=== PATIENT | female | born 1950 | race African-American/Black ===

== ENCOUNTER 2018-01-10 12:03 | Observation (INO) ==
[2018-01-10] MEDS ORDERED: GLUCAGON 1 MG VIAL IM PRN ×2 (12:31→17:42)
[2018-01-10] MEDS ORDERED: ACETAMINOPHEN 325 MG TABLET PO PRN ×2 (12:31→15:55)
[2018-01-10] MEDS ORDERED: DEXTROSE 50% 25 GM/50 ML VIAL IV PRN ×2 (12:31→17:42)
[2018-01-10] MEDS ORDERED: ONDANSETRON 4 MG/2 ML VIAL IV PRN (12:31)
[2018-01-10 14:43] LABS: Basophils % 0.3 % (0.0-0.8); Eosinophils # 0.2 10*3/uL (0.0-0.87); Eosinophils % 1.6 % (0.00-10.9); Hematocrit 43.4 VOL% (35.7-47.0); Hemoglobin 13.5 GM/DL (12.0-16.0); Immature Granulocytes % 0.5 %; Immature Granulocytes Absolute 0.06 #; Lymphocytes % 23.2 % (21.3-54.2); Mean Corpuscular HGB Conc 31.1 GM/DL (32-36); Mean Corpuscular Hemoglobin 25 PG (27-34); Mean Corpuscular Volume 79.1 FL (87-102); Mean Platelet Volume 10.5 FL (9.6-12.0); Monocytes % 7.4 % (1.7-12.7); Neutrophils # 8.6 10*3/uL (1.4-7.4); Platelet Count 235 T/CUMM (130-400); Red Blood Count 5.49 MC/CUMM (3.8-5.5); White Blood Count 12.8 T/CUMM (4-12)
[2018-01-10 14:50] LABS: PT Patient Result 10.4 SECS
[2018-01-10 15:01] LABS: Alanine Aminotransferase 21 U/L (13-56); Albumin 3.5 G/DL (3.4-5.0); Alkaline Phosphatase 99 U/L (45-117); Aspartate Amino Transferase 18 U/L (0-37); Bilirubin,Total < 0.39 MG/DL (0.2-1.0); Blood Urea Nitrogen 10 MG/DL (7-18); Calcium 8.9 MG/DL (8.5-10.1); Glucose 84 MG/DL (74-106); Osmolality,Calculated 278.3 MOS/KG (273-304); Potassium 4.2 MMOL/L (3.5-5.1); Sodium 141 MMOL/L (136-145); Total Protein 6.9 G/DL (6.4-8.3)
[2018-01-10 15:04] LABS: Troponin I Only < 0.015 NG/ML (0.00-0.045)
[2018-01-10 15:10] LABS: T4 (Thyroxine) 14.4 UG/DL (4.7-13.3); Thyroid Stimulating Hormone 0.446 uIU/ml (0.358-3.74)
[2018-01-10] MEDS ORDERED: BACLOFEN 10 MG TABLET PO PRN (15:55)
[2018-01-10] MEDS: INSULIN LISPRO 100 UNIT/ML SUBCUT SCH ×2 (16:33→21:21)
[2018-01-10] MEDS: ENOXAPARIN 40 MG/0.4 ML SYRINGE SUBCUT SCH (16:43)
[2018-01-10] MEDS ORDERED: metFORMIN 500 MG TABLET PO SCH (17:00)
[2018-01-10] MEDS: diphenhydrAMINE CAP 25 MG CAPSULE PO SCH ×2 (18:04→23:06)
[2018-01-10] MEDS: FAMOTIDINE 20 MG TABLET PO SCH ×2 (18:04→23:06)
[2018-01-10] MEDS: methylPREDNISolone SOD SUC 125 MG/2 ML VIAL IV SCH ×2 (18:09→23:06)
[2018-01-10] MEDS: ASPIRIN CHEW 81 MG TABLET PO SCH (21:20)
[2018-01-10] MEDS: GABAPENTIN 300 MG CAPSULE PO SCH (21:20)
[2018-01-10] MEDS: METOPROLOL TARTRATE 25 MG TABLET PO SCH (21:20)
[2018-01-10] MEDS: DOCUSATE SODIUM 100 MG CAPSULE PO SCH (21:20)
[2018-01-11] MEDS: FAMOTIDINE 20 MG TABLET PO SCH ×3 (05:44→17:42)
[2018-01-11] MEDS: LEVOTHYROXINE 88 MCG TABLET PO SCH (05:44)
[2018-01-11] MEDS: diphenhydrAMINE CAP 25 MG CAPSULE PO SCH ×3 (05:44→17:42)
[2018-01-11] MEDS: methylPREDNISolone SOD SUC 125 MG/2 ML VIAL IV SCH ×3 (05:44→17:42)
[2018-01-11 06:24] LABS: Risk Ratio 4.4; VLDL CHOLESTEROL 17.4 MG/DL
[2018-01-11] MEDS: FUROSEMIDE 20 MG TABLET PO SCH (08:12)
[2018-01-11] MEDS: CYANOCOBALAMIN 500 MCG TABLET PO SCH (08:13)
[2018-01-11] MEDS: PANTOPRAZOLE 40 MG TABLET PO SCH (08:13)
[2018-01-11] MEDS: DOCUSATE SODIUM 100 MG CAPSULE PO SCH ×2 (08:13→21:28)
[2018-01-11] MEDS: GABAPENTIN 300 MG CAPSULE PO SCH ×2 (08:13→21:28)
[2018-01-11] MEDS: METOPROLOL TARTRATE 25 MG TABLET PO SCH ×2 (08:13→21:28)
[2018-01-11] MEDS: INSULIN LISPRO 100 UNIT/ML SUBCUT SCH ×4 (08:49→21:28)
[2018-01-11] MEDS ORDERED: MAGNESIUM SULF RIDER 2 GM in PREMIX 1 EACH IV PRN (13:07)
[2018-01-11] MEDS ORDERED: POTASSIUM CHLORIDE RIDER 10 MEQ in PREMIX 1 EACH IV PRN (13:07)
[2018-01-11] MEDS ORDERED: SODIUM CHLORIDE 0.9% 1,000 ML IV SCH (13:30)
[2018-01-11] MEDS: ENOXAPARIN 40 MG/0.4 ML SYRINGE SUBCUT SCH ×2 (13:38→14:31)
[2018-01-11] MEDS ORDERED: HEPARIN/NACL 0.9% 2 UNITS/ML 1,000 ML IV ONE (13:52)
[2018-01-11] MEDS ORDERED: NITROGLYCERIN DRIP 50 MG/250 ML BOTTLE IV ONE (14:06)
[2018-01-11] MEDS ORDERED: VERAPAMIL 5 MG/2 ML VIAL ONE (14:07)
[2018-01-11] MEDS ORDERED: MIDAZOLAM 2 MG/2 ML VIAL ONE ×2 (14:07→14:41)
[2018-01-11] MEDS ORDERED: fentaNYL 100 MCG/2 ML VIAL ONE (14:07)
[2018-01-11] MEDS ORDERED: ENOXAPARIN 30 MG/0.3 ML SYRINGE ONE (14:29)
[2018-01-11] MEDS: ASPIRIN CHEW 81 MG TABLET PO SCH (21:28)
[2018-01-12] MEDS: FAMOTIDINE 20 MG TABLET PO SCH ×3 (00:22→12:32)
[2018-01-12] MEDS: diphenhydrAMINE CAP 25 MG CAPSULE PO SCH ×3 (00:22→12:32)
[2018-01-12] MEDS: methylPREDNISolone SOD SUC 125 MG/2 ML VIAL IV SCH ×3 (00:22→12:33)
[2018-01-12 04:56] LABS: Apearance,Urine CLOUDY (Clear); Bacteria,Urine Occasional /HPF (Few); Bilirubin,Urine Negative (Negative); Blood, Urine Negative (Negative); Glucose,Urine (UA) 50 mg/dL (Negative); Ketones,Urine Negative (Negative); Mucus,Urine Occasional /LPF (Occasional); Nitrite,Urine Negative (Negative); Protein,Urine Negative; RBC,Urine 2 /HPF (0-4); Squamous Epithelial Cell,Urine Few /HPF (0-10); Urine Color Yellow (Yellow); Urine Specific Gravity 1.044 (1.001-1.035); WBC,Urine 1 /HPF (0-6)
[2018-01-12 05:30] LABS: Basophils % 0.2 % (0.0-0.8); Hematocrit 40.2 VOL% (35.7-47.0); Hemoglobin 13.1 GM/DL (12.0-16.0); Immature Granulocytes % 0.7 %; Immature Granulocytes Absolute 0.13 #; Lymphocytes # 1.4 10*3/uL (1.4-4.0); Lymphocytes % 7.7 % (21.3-54.2); Mean Corpuscular HGB Conc 32.6 GM/DL (32-36); Mean Corpuscular Hemoglobin 25 PG (27-34); Mean Corpuscular Volume 76.1 FL (87-102); Mean Platelet Volume 10.5 FL (9.6-12.0); Monocytes # 0.6 10*3/uL (0.11-0.8); Monocytes % 3.3 % (1.7-12.7); Neutrophils # 16.1 10*3/uL (1.4-7.4); Neutrophils % 88.1 % (38.7-73.9); Platelet Count 247 T/CUMM (130-400); Red Blood Count 5.28 MC/CUMM (3.8-5.5); White Blood Count 18.3 T/CUMM (4-12)
[2018-01-12] MEDS: LEVOTHYROXINE 88 MCG TABLET PO SCH (05:48)
[2018-01-12 06:10] LABS: Calcium 8.3 MG/DL (8.5-10.1); Osmolality,Calculated 289.3 MOS/KG (273-304); Potassium 4.4 MMOL/L (3.5-5.1)
[2018-01-12] MEDS: FUROSEMIDE 20 MG TABLET PO SCH (08:27)
[2018-01-12] MEDS: GABAPENTIN 300 MG CAPSULE PO SCH (08:28)
[2018-01-12] MEDS: PANTOPRAZOLE 40 MG TABLET PO SCH (08:28)
[2018-01-12] MEDS: METOPROLOL TARTRATE 25 MG TABLET PO SCH (08:28)
[2018-01-12] MEDS: DOCUSATE SODIUM 100 MG CAPSULE PO SCH (08:28)
[2018-01-12] MEDS: INSULIN LISPRO 100 UNIT/ML SUBCUT SCH ×2 (08:29→12:32)
[2018-01-12] MEDS: CYANOCOBALAMIN 500 MCG TABLET PO SCH (08:29)
[2018-01-12 12:29] VITALS: BP 144/71
[2018-01-13] MEDS ORDERED: fentaNYL 12 MCG/HR PATCH TRANSDERM SCH (09:00)
== END 2018-01-12 13:58 | disposition home or self-care (01) ==
LOC: N.TELES
PROVIDERS: ADMIT Family Medicine; ATTEND Family Medicine
PROC: CLCCHCL (ICD-10-PCS; 2018-01-11 15:15)

== ENCOUNTER 2018-01-15 09:45 | Inpatient (IN) ==
[2018-01-15 10:27] LABS: Basophils # 0.1 10*3/uL (0.0-0.2); Basophils % 0.2 % (0.0-0.8); Eosinophils # 0.4 10*3/uL (0.0-0.87); Eosinophils % 1.4 % (0.00-10.9); Hematocrit 42.2 VOL% (35.7-47.0); Hemoglobin 13.6 GM/DL (12.0-16.0); Immature Granulocytes % 0.8 %; Immature Granulocytes Absolute 0.22 #; Lymphocytes # 2.8 10*3/uL (1.4-4.0); Lymphocytes % 10.1 % (21.3-54.2); Mean Corpuscular HGB Conc 32.2 GM/DL (32-36); Mean Corpuscular Hemoglobin 25 PG (27-34); Mean Corpuscular Volume 77.3 FL (87-102); Mean Platelet Volume 10.6 FL (9.6-12.0); Monocytes # 1.4 10*3/uL (0.11-0.8); Monocytes % 4.9 % (1.7-12.7); Neutrophils # 23.2 10*3/uL (1.4-7.4); Neutrophils % 82.6 % (38.7-73.9); Platelet Count 227 T/CUMM (130-400); Red Blood Count 5.46 MC/CUMM (3.8-5.5); Red Cell Distribution Width 15.3 % (9.3-17.3); White Blood Count 28.1 T/CUMM (4-12)
[2018-01-15] MEDS ORDERED: methylPREDNISolone SOD SUC 125 MG/2 ML VIAL IV STA (10:36)
[2018-01-15] MEDS ORDERED: methylPREDNISolone SOD SUC 125 MG/2 ML VIAL ONE (10:37)
[2018-01-15 10:54] LABS: Calcium 8.2 MG/DL (8.5-10.1); Osmolality,Calculated 282.5 MOS/KG (273-304); Potassium 4.2 MMOL/L (3.5-5.1)
[2018-01-15 11:23] LABS: Eosinophils 4 % (0-10); Hypochromasia 1+; Lymphocytes 8 % (20-55); Platelet Estimate Adequate; Segmented Neutrophils 85 % (50-85); Total Cells Counted 100
[2018-01-15 11:26] LABS: Sedimentation Rate-Westergren 7 MM/HR (0-30)
[2018-01-15] MEDS ORDERED: ONDANSETRON 4 MG/2 ML VIAL IV PRN (11:45)
[2018-01-15] MEDS ORDERED: ACETAMINOPHEN 325 MG TABLET PO PRN (11:45)
[2018-01-15] MEDS ORDERED: FUROSEMIDE 20 MG TABLET PO PRN (11:47)
[2018-01-15] MEDS ORDERED: NON-FORMULARY MEDICATION (Acetaminophen [Acetaminophen Er Tab] 650 MG) PO PRN (11:47)
[2018-01-15] MEDS ORDERED: BACLOFEN 10 MG TABLET PO PRN (11:47)
[2018-01-15] MEDS ORDERED: CEFTAROLINE 600 MG VIAL IV ONE (13:35)
[2018-01-15] MEDS: CEFTAROLINE 600 MG in SODIUM CHLORIDE 0.9% 100 ML IV SCH (14:05)
[2018-01-15] MEDS: SODIUM CHLORIDE 0.45% 1,000 ML IV SCH (14:16)
[2018-01-15] MEDS: metFORMIN 500 MG TABLET PO SCH (17:47)
[2018-01-15] MEDS: DOCUSATE SODIUM 100 MG CAPSULE PO SCH (20:39)
[2018-01-15] MEDS: ASPIRIN CHEW 81 MG TABLET PO SCH (20:39)
[2018-01-15] MEDS: ENOXAPARIN 40 MG/0.4 ML SYRINGE SUBCUT SCH (20:40)
[2018-01-15] MEDS: GABAPENTIN 300 MG CAPSULE PO SCH (20:40)
[2018-01-15] MEDS: diphenhydrAMINE CAP 25 MG CAPSULE PO PRN (23:32)
[2018-01-16] MEDS: CEFTAROLINE 600 MG in SODIUM CHLORIDE 0.9% 100 ML IV SCH ×2 (02:09→14:16)
[2018-01-16] MEDS: SODIUM CHLORIDE 0.45% 1,000 ML IV SCH ×2 (05:22→21:12)
[2018-01-16] MEDS: LEVOTHYROXINE 88 MCG TABLET PO SCH (05:53)
[2018-01-16 09:00] LABS: Basophils # 0.1 10*3/uL (0.0-0.2); Basophils % 0.2 % (0.0-0.8); Eosinophils % 0.1 % (0.00-10.9); Hematocrit 38.3 VOL% (35.7-47.0); Hemoglobin 12.7 GM/DL (12.0-16.0); Immature Granulocytes % 1.1 %; Immature Granulocytes Absolute 0.33 #; Lymphocytes # 2.7 10*3/uL (1.4-4.0); Lymphocytes % 9.2 % (21.3-54.2); Mean Corpuscular HGB Conc 33.2 GM/DL (32-36); Mean Corpuscular Hemoglobin 25 PG (27-34); Mean Corpuscular Volume 76.4 FL (87-102); Mean Platelet Volume 10.9 FL (9.6-12.0); Monocytes # 1.4 10*3/uL (0.11-0.8); Monocytes % 4.8 % (1.7-12.7); Neutrophils # 24.6 10*3/uL (1.4-7.4); Neutrophils % 84.6 % (38.7-73.9); Platelet Count 212 T/CUMM (130-400); Red Blood Count 5.01 MC/CUMM (3.8-5.5); Red Cell Distribution Width 15.3 % (9.3-17.3); White Blood Count 29.1 T/CUMM (4-12)
[2018-01-16] MEDS: diphenhydrAMINE CAP 25 MG CAPSULE PO PRN ×3 (09:09→21:11)
[2018-01-16] MEDS: DOCUSATE SODIUM 100 MG CAPSULE PO SCH ×2 (09:09→21:12)
[2018-01-16] MEDS: methylPREDNISolone SOD SUC 40 MG/1 ML VIAL IV SCH ×2 (09:09→17:52)
[2018-01-16] MEDS: CYANOCOBALAMIN 500 MCG TABLET PO SCH (09:09)
[2018-01-16] MEDS: PANTOPRAZOLE 40 MG TABLET PO SCH (09:09)
[2018-01-16] MEDS: metFORMIN 500 MG TABLET PO SCH ×2 (09:09→17:52)
[2018-01-16] MEDS: GABAPENTIN 300 MG CAPSULE PO SCH ×2 (09:09→21:11)
[2018-01-16] MEDS: INSULIN LISPRO 100 UNIT/ML SUBCUT SCH ×4 (09:11→21:11)
[2018-01-16 09:28] LABS: Calcium 8.1 MG/DL (8.5-10.1); Potassium 4.2 MMOL/L (3.5-5.1)
[2018-01-16 10:07] LABS: Band Neutrophils 4 % (0-10); Hypochromasia 1+; Lymphocytes 6 % (20-55); Myelocytes 1 %; Segmented Neutrophils 85 % (50-85); Total Cells Counted 100
[2018-01-16 10:08] LABS: Microcytosis 1+; Platelet Estimate Normal
[2018-01-16] MEDS: ENOXAPARIN 40 MG/0.4 ML SYRINGE SUBCUT SCH (21:11)
[2018-01-16] MEDS: ASPIRIN CHEW 81 MG TABLET PO SCH (21:12)
[2018-01-17] MEDS: diphenhydrAMINE CAP 25 MG CAPSULE PO PRN ×4 (01:30→21:03)
[2018-01-17] MEDS: CEFTAROLINE 600 MG in SODIUM CHLORIDE 0.9% 100 ML IV SCH ×2 (01:30→15:08)
[2018-01-17] MEDS: LEVOTHYROXINE 88 MCG TABLET PO SCH (06:37)
[2018-01-17] MEDS: INSULIN LISPRO 100 UNIT/ML SUBCUT SCH ×4 (07:58→21:03)
[2018-01-17] MEDS: SODIUM CHLORIDE 0.45% 1,000 ML IV SCH (09:59)
[2018-01-17] MEDS: DOCUSATE SODIUM 100 MG CAPSULE PO SCH ×2 (10:00→21:04)
[2018-01-17] MEDS: CYANOCOBALAMIN 500 MCG TABLET PO SCH (10:02)
[2018-01-17] MEDS: PANTOPRAZOLE 40 MG TABLET PO SCH (10:02)
[2018-01-17] MEDS: GABAPENTIN 300 MG CAPSULE PO SCH ×2 (10:02→21:03)
[2018-01-17] MEDS: metFORMIN 500 MG TABLET PO SCH ×2 (10:02→17:16)
[2018-01-17 10:12] LABS: Basophils # 0.1 10*3/uL (0.0-0.2); Basophils % 0.2 % (0.0-0.8); Eosinophils % 0.1 % (0.00-10.9); Hematocrit 39.8 VOL% (35.7-47.0); Hemoglobin 12.5 GM/DL (12.0-16.0); Immature Granulocytes Absolute 0.53 #; Lymphocytes % 15.3 % (21.3-54.2); Mean Corpuscular HGB Conc 31.4 GM/DL (32-36); Mean Corpuscular Hemoglobin 25 PG (27-34); Mean Corpuscular Volume 79.3 FL (87-102); Mean Platelet Volume 11.9 FL (9.6-12.0); Monocytes # 1.4 10*3/uL (0.11-0.8); Monocytes % 5.2 % (1.7-12.7); Neutrophils # 19.9 10*3/uL (1.4-7.4); Neutrophils % 77.2 % (38.7-73.9); Platelet Count 199 T/CUMM (130-400); Red Blood Count 5.02 MC/CUMM (3.8-5.5); Red Cell Distribution Width 15.5 % (9.3-17.3); White Blood Count 25.9 T/CUMM (4-12)
[2018-01-17 10:39] LABS: Calcium 8.5 MG/DL (8.5-10.1); Osmolality,Calculated 282.4 MOS/KG (273-304); Potassium 4.3 MMOL/L (3.5-5.1)
[2018-01-17 11:07] LABS: Band Neutrophils 1 % (0-10); Lymphocytes 18 % (20-55); Segmented Neutrophils 81 % (50-85); Total Cells Counted 100
[2018-01-17 11:08] LABS: Atypical Lymphocytes Few
[2018-01-17 11:09] LABS: Microcytosis 1+; Polychromasia Slight
[2018-01-17 11:10] LABS: Platelet Satellitism Few
[2018-01-17] MEDS: methylPREDNISolone SOD SUC 40 MG/1 ML VIAL IV SCH (15:07)
[2018-01-17] MEDS: TRIAMCINOLONE 0.1% CREAM 15 GM TUBE TOP SCH ×2 (15:08→21:04)
[2018-01-17] MEDS: ENOXAPARIN 40 MG/0.4 ML SYRINGE SUBCUT SCH (21:02)
[2018-01-17] MEDS: ASPIRIN CHEW 81 MG TABLET PO SCH (21:03)
[2018-01-18] MEDS: CEFTAROLINE 600 MG in SODIUM CHLORIDE 0.9% 100 ML IV SCH (02:31)
[2018-01-18] MEDS: diphenhydrAMINE CAP 25 MG CAPSULE PO PRN (02:31)
[2018-01-18] MEDS: methylPREDNISolone SOD SUC 40 MG/1 ML VIAL IV SCH ×2 (02:31→13:05)
[2018-01-18] MEDS: LEVOTHYROXINE 88 MCG TABLET PO SCH (05:56)
[2018-01-18 06:09] LABS: Basophils # 0.1 10*3/uL (0.0-0.2); Basophils % 0.3 % (0.0-0.8); Eosinophils % 0.2 % (0.00-10.9); Hematocrit 40.3 VOL% (35.7-47.0); Hemoglobin 12.5 GM/DL (12.0-16.0); Immature Granulocytes % 2.5 %; Immature Granulocytes Absolute 0.49 #; Lymphocytes # 2.7 10*3/uL (1.4-4.0); Lymphocytes % 13.8 % (21.3-54.2); Mean Corpuscular Hemoglobin 25 PG (27-34); Mean Corpuscular Volume 79.3 FL (87-102); Mean Platelet Volume 10.9 FL (9.6-12.0); Monocytes # 1.1 10*3/uL (0.11-0.8); Monocytes % 5.9 % (1.7-12.7); Neutrophils % 77.3 % (38.7-73.9); Platelet Count 237 T/CUMM (130-400); Red Blood Count 5.08 MC/CUMM (3.8-5.5); Red Cell Distribution Width 15.3 % (9.3-17.3); White Blood Count 19.4 T/CUMM (4-12)
[2018-01-18 06:36] LABS: Calcium 8.3 MG/DL (8.5-10.1); Osmolality,Calculated 282.4 MOS/KG (273-304); Potassium 4.6 MMOL/L (3.5-5.1)
[2018-01-18] MEDS ORDERED: fentaNYL 12 MCG/HR PATCH TRANSDERM SCH (09:00)
[2018-01-18] MEDS: CYANOCOBALAMIN 500 MCG TABLET PO SCH (09:03)
[2018-01-18] MEDS: INSULIN LISPRO 100 UNIT/ML SUBCUT SCH ×2 (09:03→11:52)
[2018-01-18] MEDS: GABAPENTIN 300 MG CAPSULE PO SCH (09:03)
[2018-01-18] MEDS: metFORMIN 500 MG TABLET PO SCH (09:04)
[2018-01-18] MEDS: TRIAMCINOLONE 0.1% CREAM 15 GM TUBE TOP SCH (09:05)
[2018-01-18] MEDS: DOCUSATE SODIUM 100 MG CAPSULE PO SCH (09:05)
[2018-01-18] MEDS: PANTOPRAZOLE 40 MG TABLET PO SCH (09:05)
[2018-01-18 11:04] VITALS: BP 136/86
== END 2018-01-18 15:30 | disposition home or self-care (01) | DRG 607 ==
LOC: N.ED 09:45 → N.EDINP 11:45 → N.5E 13:01
PROVIDERS: ADMIT Family Medicine; ATTEND Family Medicine

== ENCOUNTER 2020-09-19 10:49 | Inpatient (IN) ==
[2020-09-19 11:34] LABS: Basophils % 0.1 % (0.0-0.8); Hematocrit 42.4 VOL% (35.7-47.0); Hemoglobin 13.6 GM/DL (12.0-16.0); Immature Granulocytes % 0.5 %; Immature Granulocytes Absolute 0.05 #; Lymphocytes # 0.8 10*3/uL (1.4-4.0); Mean Corpuscular HGB Conc 32.1 GM/DL (32-36); Mean Corpuscular Volume 75.2 FL (87-102); Mean Platelet Volume 10.4 FL (9.6-12.0); Monocytes % 5.3 % (1.7-12.7); Neutrophils % 87.1 % (38.7-73.9); Platelet Count 141 T/CUMM (130-400); Red Blood Count 5.64 MC/CUMM (3.8-5.5); Red Cell Distribution Width 14.6 % (9.3-17.3)
[2020-09-19] MEDS ORDERED: LEVOFLOXACIN INJ 750 MG in PREMIX 1 EACH IV STA (11:48)
[2020-09-19 11:51] LABS: Bilirubin,Total 0.7 MG/DL (0.2-1.0); Osmolality,Calculated 280.8 MOS/KG (273-304); Potassium 4.3 MMOL/L (3.5-5.1); Total Protein 6.6 G/DL (6.4-8.3)
[2020-09-19 12:04] LABS: ABG Base Excess 0.6 MMOL/L (-2.5-2.5); ABG HCO3 24.5 MMOL/L (20-26); ABG Oxygen Saturation 83.6 % (95-100); ABG PCO2 37.2 MM HG (35-48); ABG PH 7.436 (7.35-7.45); ABG PO2 50.5 MM HG (80-95); ABG TCO2 25.6 MMOL/L (23-27)
[2020-09-19] MEDS ORDERED: AZITHROMYCIN INJ 500 MG in SODIUM CHLORIDE 0.9% 250 ML IV ONE (14:00)
[2020-09-19] MEDS ORDERED: ALBUTEROL 2.5 MG/3 ML NEB RESP TX PRN (14:03)
[2020-09-19] MEDS ORDERED: GLUCAGON 1 MG VIAL IM PRN (14:03)
[2020-09-19] MEDS ORDERED: ONDANSETRON 4 MG/2 ML VIAL IV PRN (14:03)
[2020-09-19] MEDS ORDERED: DEXTROSE 50% 25 GM/50 ML VIAL IV PRN (14:03)
[2020-09-19] MEDS ORDERED: SODIUM CHLORIDE 0.9% 1,000 ML IV ONE (14:53)
[2020-09-19] MEDS ORDERED: BACLOFEN 10 MG TABLET PO PRN (14:53)
[2020-09-19] MEDS: DEXAMETHASONE 4 MG/1 ML VIAL IV SCH (17:30)
[2020-09-19] MEDS: FAMOTIDINE 20 MG TABLET PO SCH ×2 (17:30→21:45)
[2020-09-19] MEDS: ZINC GLUCONATE 50 MG TABLET PO SCH (17:38)
[2020-09-19] MEDS: CETIRIZINE 10 MG TABLET PO SCH (17:38)
[2020-09-19] MEDS: ASCORBIC ACID 500 MG TABLET PO SCH ×2 (17:38→21:45)
[2020-09-19] MEDS: CHOLECALCIFEROL 1,000 UNIT TABLET PO SCH (17:38)
[2020-09-19] MEDS: ENOXAPARIN 80 MG/0.8 ML SYRINGE SUBCUT SCH (17:40)
[2020-09-19] MEDS: INSULIN LISPRO 100 UNIT/ML SUBCUT SCH (17:55)
[2020-09-19 19:43] LABS: Bilirubin,Urine Negative (Negative); Blood, Urine Negative (Negative); Glucose,Urine (UA) Negative (Negative); Hyaline Casts,Urine 1 /LPF (0-3); Ketones,Urine Negative (Negative); Mucus,Urine Occasional /LPF (Occasional); Nitrite,Urine Negative (Negative); Protein,Urine 100 MG/DL; RBC,Urine 1 /HPF (0-4); Squamous Epithelial Cell,Urine Occasional /HPF (0-10); Urine Appearance CLEAR (Clear); Urine Color Amber (Yellow); Urine Specific Gravity 1.027 (1.001-1.035); WBC,Urine 3 /HPF (0-6)
[2020-09-19] MEDS: GABAPENTIN 300 MG CAPSULE PO SCH (21:45)
[2020-09-19] MEDS: ASPIRIN CHEW 81 MG TABLET PO SCH (21:45)
[2020-09-20] MEDS: INSULIN LISPRO 100 UNIT/ML SUBCUT SCH ×5 (00:19→21:00)
[2020-09-20] MEDS ORDERED: MORPHINE 4 MG/1 ML VIAL ONE (01:41)
[2020-09-20] MEDS ORDERED: MORPHINE 4 MG/1 ML VIAL IV PRN (01:44)
[2020-09-20] MEDS: MORPHINE 4 MG/1 ML VIAL IV PRN ×2 (01:45→16:03)
[2020-09-20] MEDS: ENOXAPARIN 80 MG/0.8 ML SYRINGE SUBCUT SCH ×2 (02:41→14:16)
[2020-09-20 03:51] LABS: ABG Base Excess 1.3 MMOL/L (-2.5-2.5); ABG HCO3 25.5 MMOL/L (20-26); ABG Oxygen Saturation 94.4 % (95-100); ABG PCO2 42.8 MM HG (35-48); ABG PH 7.398 (7.35-7.45); ABG PO2 74.9 MM HG (80-95); ABG TCO2 23.1 MMOL/L (23-27)
[2020-09-20 05:48] LABS: Basophils % 0.1 % (0.0-0.8); Hematocrit 40.7 VOL% (35.7-47.0); Hemoglobin 13.1 GM/DL (12.0-16.0); Immature Granulocytes % 0.5 %; Immature Granulocytes Absolute 0.04 #; Lymphocytes # 0.8 10*3/uL (1.4-4.0); Lymphocytes % 9.6 % (21.3-54.2); Mean Corpuscular HGB Conc 32.2 GM/DL (32-36); Mean Corpuscular Volume 75.4 FL (87-102); Mean Platelet Volume 10.5 FL (9.6-12.0); Monocytes % 5.2 % (1.7-12.7); Neutrophils % 84.6 % (38.7-73.9); Platelet Count 149 T/CUMM (130-400); Red Cell Distribution Width 14.7 % (9.3-17.3); White Blood Count 8.2 T/CUMM (4-12)
[2020-09-20 06:15] LABS: Albumin 2.6 G/DL (3.4-5.0); Bilirubin,Total 0.6 MG/DL (0.2-1.0); Calcium 7.9 MG/DL (8.5-10.1); Ferritin 903.8 ng/ml (8-252); Osmolality,Calculated 276.8 MOS/KG (273-304); Potassium 4.6 MMOL/L (3.5-5.1); Risk Ratio 4.67; Thyroid Stimulating Hormone 0.133 uIU/ml (0.358-3.74); Total Protein 6.7 G/DL (6.4-8.3); VLDL CHOLESTEROL 23.6 MG/DL
[2020-09-20 06:19] LABS: Hypochromasia 1+; Microcytosis 1+; Platelet Estimate Adequate
[2020-09-20] MEDS: ZINC GLUCONATE 50 MG TABLET PO SCH (08:59)
[2020-09-20] MEDS: GABAPENTIN 300 MG CAPSULE PO SCH ×2 (08:59→21:00)
[2020-09-20] MEDS: LEVOTHYROXINE 88 MCG TABLET PO SCH (08:59)
[2020-09-20] MEDS: CETIRIZINE 10 MG TABLET PO SCH (09:00)
[2020-09-20] MEDS: ASCORBIC ACID 500 MG TABLET PO SCH ×2 (09:00→21:01)
[2020-09-20] MEDS: AZITHROMYCIN 250 MG TABLET PO SCH (09:00)
[2020-09-20] MEDS: CHOLECALCIFEROL 1,000 UNIT TABLET PO SCH (09:00)
[2020-09-20] MEDS: FAMOTIDINE 20 MG TABLET PO SCH ×2 (09:00→21:01)
[2020-09-20] MEDS: DEXAMETHASONE 4 MG/1 ML VIAL IV SCH (09:01)
[2020-09-20] MEDS ORDERED: REMDESIVIR 200 MG in SODIUM CHLORIDE 0.9% 210 ML IV ONE (11:00)
[2020-09-20] MEDS: ASPIRIN CHEW 81 MG TABLET PO SCH (21:00)
[2020-09-21] MEDS: MORPHINE 4 MG/1 ML VIAL IV PRN ×2 (02:22→20:49)
[2020-09-21] MEDS: ENOXAPARIN 80 MG/0.8 ML SYRINGE SUBCUT SCH ×2 (02:36→14:14)
[2020-09-21 04:38] LABS: Basophils % 0.2 % (0.0-0.8); Hematocrit 43.2 VOL% (35.7-47.0); Hemoglobin 13.5 GM/DL (12.0-16.0); Immature Granulocytes % 0.5 %; Immature Granulocytes Absolute 0.06 #; Lymphocytes # 1.3 10*3/uL (1.4-4.0); Lymphocytes % 10.6 % (21.3-54.2); Mean Corpuscular HGB Conc 31.3 GM/DL (32-36); Mean Corpuscular Volume 77.3 FL (87-102); Mean Platelet Volume 10.5 FL (9.6-12.0); Monocytes % 6.8 % (1.7-12.7); Neutrophils % 81.9 % (38.7-73.9); Red Blood Count 5.59 MC/CUMM (3.8-5.5); Red Cell Distribution Width 14.7 % (9.3-17.3)
[2020-09-21 04:40] LABS: ABG HCO3 26.9 MMOL/L (20-26); ABG Oxygen Saturation 92.7 % (95-100); ABG PCO2 50.7 MM HG (35-48); ABG PH 7.371 (7.35-7.45); ABG PO2 70.6 MM HG (80-95); ABG TCO2 25.6 MMOL/L (23-27); Allen Test Positive; Pt O2 Delivery Device BIPAP
[2020-09-21 04:54] LABS: Platelet Count 184 T/CUMM (130-400); White Blood Count 12.6 T/CUMM (4-12)
[2020-09-21 04:58] LABS: Albumin 2.4 G/DL (3.4-5.0); Bilirubin,Total 0.4 MG/DL (0.2-1.0); Calcium 8.6 MG/DL (8.5-10.1); Osmolality,Calculated 286.3 MOS/KG (273-304); Potassium 4.7 MMOL/L (3.5-5.1); Total Protein 6.6 G/DL (6.4-8.3)
[2020-09-21 06:00] LABS: Hypochromasia 1+; Microcytosis 1+; Platelet Estimate Adequate
[2020-09-21] MEDS: INSULIN LISPRO 100 UNIT/ML SUBCUT SCH ×4 (08:03→20:50)
[2020-09-21] MEDS: GABAPENTIN 300 MG CAPSULE PO SCH ×2 (08:04→20:53)
[2020-09-21] MEDS: AZITHROMYCIN 250 MG TABLET PO SCH (08:04)
[2020-09-21] MEDS: ASCORBIC ACID 500 MG TABLET PO SCH ×2 (08:04→20:49)
[2020-09-21] MEDS: CHOLECALCIFEROL 1,000 UNIT TABLET PO SCH (08:05)
[2020-09-21] MEDS: ZINC GLUCONATE 50 MG TABLET PO SCH (08:10)
[2020-09-21] MEDS: DEXAMETHASONE 4 MG/1 ML VIAL IV SCH (08:10)
[2020-09-21] MEDS: LEVOTHYROXINE 88 MCG TABLET PO SCH (08:12)
[2020-09-21] MEDS: FAMOTIDINE 20 MG TABLET PO SCH ×2 (08:14→20:50)
[2020-09-21] MEDS: CETIRIZINE 10 MG TABLET PO SCH (08:16)
[2020-09-21] MEDS: REMDESIVIR 100 MG in SODIUM CHLORIDE 0.9% 100 ML IV SCH (09:50)
[2020-09-21] MEDS ORDERED: ALUMINUM/MAGNES/SIMETH MAX STR 30 ML UDCUP PO PRN (13:23)
[2020-09-21] MEDS: MELATONIN 3 MG TABLET PO PRN (20:49)
[2020-09-21] MEDS: ASPIRIN CHEW 81 MG TABLET PO SCH (20:49)
[2020-09-22 03:09] LABS: ABG Base Excess 3.9 MMOL/L (-2.5-2.5); ABG HCO3 27.8 MMOL/L (20-26); ABG Oxygen Saturation 93.8 % (95-100); ABG PCO2 46.5 MM HG (35-48); ABG PH 7.409 (7.35-7.45); ABG PO2 72.7 MM HG (80-95); ABG TCO2 25.4 MMOL/L (23-27)
[2020-09-22 05:28] LABS: Basophils % 0.1 % (0.0-0.8); Eosinophils % 0.1 % (0.00-10.9); Hematocrit 43.7 VOL% (35.7-47.0); Hemoglobin 13.8 GM/DL (12.0-16.0); Immature Granulocytes % 0.7 %; Immature Granulocytes Absolute 0.11 #; Lymphocytes # 1.6 10*3/uL (1.4-4.0); Lymphocytes % 9.9 % (21.3-54.2); Mean Corpuscular HGB Conc 31.6 GM/DL (32-36); Mean Corpuscular Volume 76.7 FL (87-102); Mean Platelet Volume 10.8 FL (9.6-12.0); Monocytes % 5.1 % (1.7-12.7); Neutrophils % 84.1 % (38.7-73.9); Platelet Count 214 T/CUMM (130-400); Red Cell Distribution Width 14.7 % (9.3-17.3); White Blood Count 16.3 T/CUMM (4-12)
[2020-09-22 05:49] LABS: Albumin 2.4 G/DL (3.4-5.0); Bilirubin,Total 0.5 MG/DL (0.2-1.0); Calcium 8.1 MG/DL (8.5-10.1); Osmolality,Calculated 292.6 MOS/KG (273-304); Potassium 3.8 MMOL/L (3.5-5.1); Total Protein 6.4 G/DL (6.4-8.3)
[2020-09-22] MEDS: INSULIN LISPRO 100 UNIT/ML SUBCUT SCH ×4 (07:44→21:39)
[2020-09-22] MEDS: ZINC GLUCONATE 50 MG TABLET PO SCH (08:32)
[2020-09-22] MEDS: AZITHROMYCIN 250 MG TABLET PO SCH (08:32)
[2020-09-22] MEDS: FAMOTIDINE 20 MG TABLET PO SCH ×2 (08:32→21:38)
[2020-09-22] MEDS: LEVOTHYROXINE 88 MCG TABLET PO SCH (08:32)
[2020-09-22] MEDS: DEXAMETHASONE 4 MG/1 ML VIAL IV SCH (08:32)
[2020-09-22] MEDS: GABAPENTIN 300 MG CAPSULE PO SCH ×2 (08:32→21:38)
[2020-09-22] MEDS: CETIRIZINE 10 MG TABLET PO SCH (08:33)
[2020-09-22] MEDS: ENOXAPARIN 80 MG/0.8 ML SYRINGE SUBCUT SCH (08:33)
[2020-09-22] MEDS: ASCORBIC ACID 500 MG TABLET PO SCH ×2 (08:33→21:38)
[2020-09-22] MEDS: CHOLECALCIFEROL 1,000 UNIT TABLET PO SCH (08:37)
[2020-09-22] MEDS: REMDESIVIR 100 MG in SODIUM CHLORIDE 0.9% 100 ML IV SCH (09:25)
[2020-09-22] MEDS: ASPIRIN CHEW 81 MG TABLET PO SCH (21:37)
[2020-09-22] MEDS: ENOXAPARIN 60 MG/0.6 ML SYRINGE SUBCUT SCH (21:37)
[2020-09-23 04:33] LABS: ABG Base Excess 3.5 MMOL/L (-2.5-2.5); ABG HCO3 27.9 MMOL/L (20-26); ABG Oxygen Saturation 95.4 % (95-100); ABG PCO2 41.6 MM HG (35-48); ABG PH 7.445 (7.35-7.45); ABG PO2 82.4 MM HG (80-95); ABG TCO2 29.2 MMOL/L (23-27); Allen Test Positive; Pt O2 Delivery Device BIPAP
[2020-09-23 04:48] LABS: Basophils % 0.1 % (0.0-0.8); Eosinophils % 0.2 % (0.00-10.9); Hematocrit 44.5 VOL% (35.7-47.0); Hemoglobin 14.3 GM/DL (12.0-16.0); Immature Granulocytes % 1.6 %; Immature Granulocytes Absolute 0.28 #; Lymphocytes # 1.3 10*3/uL (1.4-4.0); Lymphocytes % 7.5 % (21.3-54.2); Mean Corpuscular HGB Conc 32.1 GM/DL (32-36); Mean Corpuscular Volume 75.9 FL (87-102); Mean Platelet Volume 10.3 FL (9.6-12.0); Monocytes % 5.1 % (1.7-12.7); Neutrophils % 85.5 % (38.7-73.9); Platelet Count 221 T/CUMM (130-400); Red Blood Count 5.86 MC/CUMM (3.8-5.5); Red Cell Distribution Width 14.4 % (9.3-17.3); White Blood Count 17.6 T/CUMM (4-12)
[2020-09-23 05:11] LABS: Microcytosis Slight; Platelet Estimate Adequate
[2020-09-23 05:14] LABS: Albumin 2.4 G/DL (3.4-5.0); Bilirubin,Total 0.9 MG/DL (0.2-1.0); Calcium 8.4 MG/DL (8.5-10.1); Osmolality,Calculated 292.6 MOS/KG (273-304); Potassium 3.8 MMOL/L (3.5-5.1); Total Protein 6.6 G/DL (6.4-8.3)
[2020-09-23] MEDS: REMDESIVIR 100 MG in SODIUM CHLORIDE 0.9% 100 ML IV SCH (08:40)
[2020-09-23] MEDS: DEXAMETHASONE 4 MG/1 ML VIAL IV SCH (08:42)
[2020-09-23] MEDS: LEVOTHYROXINE 88 MCG TABLET PO SCH (08:42)
[2020-09-23] MEDS: ASCORBIC ACID 500 MG TABLET PO SCH ×2 (08:43→22:00)
[2020-09-23] MEDS: ZINC GLUCONATE 50 MG TABLET PO SCH (08:43)
[2020-09-23] MEDS: GABAPENTIN 300 MG CAPSULE PO SCH ×2 (08:43→22:00)
[2020-09-23] MEDS: ENOXAPARIN 60 MG/0.6 ML SYRINGE SUBCUT SCH ×2 (08:43→22:00)
[2020-09-23] MEDS: CETIRIZINE 10 MG TABLET PO SCH (08:43)
[2020-09-23] MEDS: CHOLECALCIFEROL 1,000 UNIT TABLET PO SCH (08:43)
[2020-09-23] MEDS: AZITHROMYCIN 250 MG TABLET PO SCH (08:43)
[2020-09-23] MEDS: FAMOTIDINE 20 MG TABLET PO SCH ×2 (08:43→22:00)
[2020-09-23] MEDS: INSULIN LISPRO 100 UNIT/ML SUBCUT SCH ×5 (09:20→22:17)
[2020-09-23] MEDS: MORPHINE 4 MG/1 ML VIAL IV PRN (21:15)
[2020-09-23] MEDS: ASPIRIN CHEW 81 MG TABLET PO SCH (22:00)
[2020-09-24 04:14] LABS: ABG HCO3 27.9 MMOL/L (20-26); ABG Oxygen Saturation 93.3 % (95-100); ABG PCO2 46.7 MM HG (35-48); ABG PO2 71.7 MM HG (80-95); ABG TCO2 25.4 MMOL/L (23-27); Allen Test Positive; Pt O2 Delivery Device BIPAP
[2020-09-24 05:02] LABS: Basophils % 0.1 % (0.0-0.8); Eosinophils # 0.1 10*3/uL (0.0-0.87); Eosinophils % 0.5 % (0.00-10.9); Hematocrit 46.2 VOL% (35.7-47.0); Hemoglobin 14.2 GM/DL (12.0-16.0); Immature Granulocytes % 1.1 %; Immature Granulocytes Absolute 0.21 #; Lymphocytes # 1.3 10*3/uL (1.4-4.0); Lymphocytes % 6.7 % (21.3-54.2); Mean Corpuscular HGB Conc 30.7 GM/DL (32-36); Mean Corpuscular Volume 77.6 FL (87-102); Mean Platelet Volume 10.5 FL (9.6-12.0); Monocytes % 5.9 % (1.7-12.7); Neutrophils % 85.7 % (38.7-73.9); Platelet Count 214 T/CUMM (130-400); Red Blood Count 5.95 MC/CUMM (3.8-5.5); Red Cell Distribution Width 15.1 % (9.3-17.3); White Blood Count 18.8 T/CUMM (4-12)
[2020-09-24 05:30] LABS: Albumin 2.4 G/DL (3.4-5.0); Bilirubin,Total 1.2 MG/DL (0.2-1.0); Calcium 8.9 MG/DL (8.5-10.1); Osmolality,Calculated 291.7 MOS/KG (273-304); Potassium 4.9 MMOL/L (3.5-5.1); Total Protein 6.8 G/DL (6.4-8.3)
[2020-09-24 05:33] LABS: Ferritin 697.7 ng/ml (8-252)
[2020-09-24] MEDS: ASCORBIC ACID 500 MG TABLET PO SCH ×3 (08:10→21:25)
[2020-09-24] MEDS: FAMOTIDINE 20 MG TABLET PO SCH ×2 (08:11→09:12)
[2020-09-24] MEDS: CHOLECALCIFEROL 1,000 UNIT TABLET PO SCH ×2 (08:11→09:14)
[2020-09-24] MEDS: ZINC GLUCONATE 50 MG TABLET PO SCH ×2 (08:11→09:14)
[2020-09-24] MEDS: GABAPENTIN 300 MG CAPSULE PO SCH ×2 (08:11→21:25)
[2020-09-24] MEDS: LEVOTHYROXINE 88 MCG TABLET PO SCH ×2 (08:11→09:14)
[2020-09-24] MEDS: ENOXAPARIN 60 MG/0.6 ML SYRINGE SUBCUT SCH ×2 (08:11→21:27)
[2020-09-24] MEDS: CETIRIZINE 10 MG TABLET PO SCH (08:12)
[2020-09-24] MEDS: DEXAMETHASONE 4 MG/1 ML VIAL IV SCH (08:12)
[2020-09-24] MEDS: INSULIN LISPRO 100 UNIT/ML SUBCUT SCH ×3 (08:12→17:36)
[2020-09-24] MEDS: REMDESIVIR 100 MG in SODIUM CHLORIDE 0.9% 100 ML IV SCH (09:23)
[2020-09-24] MEDS ORDERED: ETOMIDATE 20 MG/10 ML VIAL IV ONE ×2 (13:12→13:27)
[2020-09-24] MEDS ORDERED: SUCCINYLCHOLINE 200 MG/10 ML VIAL ONE (13:13)
[2020-09-24] MEDS ORDERED: SUCCINYLCHOLINE 200 MG/10 ML VIAL IV ONE (13:28)
[2020-09-24 14:19] LABS: ABG Base Excess 2.6 MMOL/L (-2.5-2.5); ABG HCO3 26.4 MMOL/L (20-26); ABG PCO2 45.1 MM HG (35-48); ABG PH 7.401 (7.35-7.45); ABG PO2 58.5 MM HG (80-95); Allen Test Positive; Pt O2 Delivery Device Ventilator
[2020-09-24] MEDS ORDERED: fentaNYL INJ 1,250 MCG in SODIUM CHLORIDE 0.9% 225 ML IV PRN (14:49)
[2020-09-24] MEDS ORDERED: MIDAZOLAM 2 MG/2 ML VIAL ONE (15:04)
[2020-09-24] MEDS ORDERED: MIDAZOLAM 2 MG/2 ML VIAL IV ONE (15:30)
[2020-09-24] MEDS: fentaNYL INJ 1,250 MCG in SODIUM CHLORIDE 0.9% 225 ML IV PRN (15:33)
[2020-09-24] MEDS ORDERED: SODIUM CHLORIDE 0.9% 1,000 ML IV ONE (17:21)
[2020-09-24] MEDS: methylPREDNISolone SOD SUC 40 MG/1 ML VIAL IV SCH (17:22)
[2020-09-24] MEDS: ASPIRIN CHEW 81 MG TABLET PO SCH (21:25)
[2020-09-24] MEDS: INSULIN GLARGINE 100 UNIT/ML SUBCUT SCH (21:27)
[2020-09-24] MEDS: FAMOTIDINE 20 MG/2 ML VIAL IV SCH (21:28)
[2020-09-25] MEDS: methylPREDNISolone SOD SUC 40 MG/1 ML VIAL IV SCH ×3 (00:44→16:57)
[2020-09-25] MEDS: INSULIN LISPRO 100 UNIT/ML SUBCUT SCH ×4 (00:47→17:59)
[2020-09-25] MEDS: fentaNYL INJ 1,250 MCG in SODIUM CHLORIDE 0.9% 225 ML IV PRN ×5 (00:48→19:53)
[2020-09-25] MEDS: NOREPINEPHRINE 8 MG in SODIUM CHLORIDE 0.9% 242 ML IV PRN (00:51)
[2020-09-25 03:50] LABS: ABG Base Excess 0.7 MMOL/L (-2.5-2.5); ABG Oxygen Saturation 98.1 % (95-100); ABG PCO2 59.1 MM HG (35-48); ABG PH 7.297 (7.35-7.45); ABG TCO2 25.4 MMOL/L (23-27)
[2020-09-25 04:46] LABS: Albumin 2.3 G/DL (3.4-5.0); Bilirubin,Total 0.6 MG/DL (0.2-1.0); Calcium 8.2 MG/DL (8.5-10.1); Osmolality,Calculated 296.8 MOS/KG (273-304); Potassium 4.6 MMOL/L (3.5-5.1); Total Protein 6.6 G/DL (6.4-8.3)
[2020-09-25 07:00] LABS: Basophils % 0.2 % (0.0-0.8); Hematocrit 45.6 VOL% (35.7-47.0); Immature Granulocytes % 1.5 %; Immature Granulocytes Absolute 0.36 #; Lymphocytes # 0.7 10*3/uL (1.4-4.0); Lymphocytes % 2.8 % (21.3-54.2); Mean Corpuscular HGB Conc 30.7 GM/DL (32-36); Mean Corpuscular Volume 78.4 FL (87-102); Monocytes % 3.4 % (1.7-12.7); Neutrophils % 92.1 % (38.7-73.9); Platelet Count 227 T/CUMM (130-400); Red Blood Count 5.82 MC/CUMM (3.8-5.5); Red Cell Distribution Width 15.3 % (9.3-17.3); White Blood Count 23.9 T/CUMM (4-12)
[2020-09-25 07:20] LABS: Lymphocytes 2 % (20-55); Platelet Estimate Adequate; Segmented Neutrophils 95 % (50-85); Total Cells Counted 100
[2020-09-25] MEDS: CETIRIZINE 10 MG TABLET PO SCH (08:29)
[2020-09-25] MEDS: ZINC GLUCONATE 50 MG TABLET PO SCH (08:29)
[2020-09-25] MEDS: ENOXAPARIN 60 MG/0.6 ML SYRINGE SUBCUT SCH ×2 (08:29→20:33)
[2020-09-25] MEDS: CHOLECALCIFEROL 1,000 UNIT TABLET PO SCH (08:29)
[2020-09-25] MEDS: ASCORBIC ACID 500 MG TABLET PO SCH ×2 (08:29→20:32)
[2020-09-25] MEDS: GABAPENTIN 300 MG CAPSULE PO SCH ×2 (08:30→20:32)
[2020-09-25] MEDS: LEVOTHYROXINE 88 MCG TABLET PO SCH (08:30)
[2020-09-25] MEDS: FAMOTIDINE 20 MG/2 ML VIAL IV SCH ×2 (08:30→20:33)
[2020-09-25] MEDS ORDERED: FUROSEMIDE 40 MG/4 ML VIAL IV ONE (08:40)
[2020-09-25] MEDS: ASPIRIN CHEW 81 MG TABLET PO SCH (20:32)
[2020-09-25] MEDS: INSULIN GLARGINE 100 UNIT/ML SUBCUT SCH (20:33)
[2020-09-26] MEDS: fentaNYL INJ 1,250 MCG in SODIUM CHLORIDE 0.9% 225 ML IV PRN ×5 (00:25→20:06)
[2020-09-26] MEDS: INSULIN LISPRO 100 UNIT/ML SUBCUT SCH ×5 (00:45→23:58)
[2020-09-26] MEDS: methylPREDNISolone SOD SUC 40 MG/1 ML VIAL IV SCH ×4 (01:08→23:52)
[2020-09-26 03:43] LABS: ABG Base Excess 0.4 MMOL/L (-2.5-2.5); ABG HCO3 28.8 MMOL/L (20-26); ABG Oxygen Saturation 96.5 % (95-100); ABG PCO2 64.2 MM HG (35-48); ABG PO2 96.8 MM HG (80-95); ABG TCO2 30.8 MMOL/L (23-27)
[2020-09-26 05:56] LABS: Basophils % 0.1 % (0.0-0.8); Hematocrit 43.4 VOL% (35.7-47.0); Hemoglobin 13.2 GM/DL (12.0-16.0); Immature Granulocytes % 2.1 %; Immature Granulocytes Absolute 0.41 #; Lymphocytes % 5.2 % (21.3-54.2); Mean Corpuscular HGB Conc 30.4 GM/DL (32-36); Mean Platelet Volume 10.9 FL (9.6-12.0); Monocytes % 8.8 % (1.7-12.7); Neutrophils % 83.8 % (38.7-73.9); Platelet Count 169 T/CUMM (130-400); Red Blood Count 5.36 MC/CUMM (3.8-5.5); Red Cell Distribution Width 15.2 % (9.3-17.3); White Blood Count 19.7 T/CUMM (4-12)
[2020-09-26 06:18] LABS: Albumin 2.2 G/DL (3.4-5.0); Bilirubin,Total 0.6 MG/DL (0.2-1.0); Calcium 8.2 MG/DL (8.5-10.1); Potassium 4.6 MMOL/L (3.5-5.1); Total Protein 6.1 G/DL (6.4-8.3)
[2020-09-26 06:24] LABS: Ferritin 522.7 ng/ml (8-252)
[2020-09-26] MEDS: LEVOTHYROXINE 88 MCG TABLET PO SCH (08:11)
[2020-09-26] MEDS: ZINC GLUCONATE 50 MG TABLET PO SCH (08:11)
[2020-09-26] MEDS: FAMOTIDINE 20 MG/2 ML VIAL IV SCH ×2 (08:11→20:03)
[2020-09-26] MEDS: ASCORBIC ACID 500 MG TABLET PO SCH ×2 (08:11→20:04)
[2020-09-26] MEDS: GABAPENTIN 300 MG CAPSULE PO SCH ×2 (08:11→20:04)
[2020-09-26] MEDS: ENOXAPARIN 60 MG/0.6 ML SYRINGE SUBCUT SCH ×2 (08:11→20:03)
[2020-09-26] MEDS: CETIRIZINE 10 MG TABLET PO SCH (08:12)
[2020-09-26] MEDS: CHOLECALCIFEROL 1,000 UNIT TABLET PO SCH (08:12)
[2020-09-26] MEDS ORDERED: INSULIN GLARGINE 100 UNIT/ML SUBCUT SCH (14:14)
[2020-09-26 14:24] LABS: ABG Base Excess 3.2 MMOL/L (-2.5-2.5); ABG HCO3 27.2 MMOL/L (20-26); ABG Oxygen Saturation 95.1 % (95-100); ABG PCO2 63.8 MM HG (35-48); ABG PH 7.303 (7.35-7.45); ABG PO2 79.8 MM HG (80-95); ABG TCO2 28.2 MMOL/L (23-27); Allen Test Positive; Pt O2 Delivery Device Ventilator
[2020-09-26] MEDS: ASPIRIN CHEW 81 MG TABLET PO SCH (20:04)
[2020-09-26] MEDS: NOREPINEPHRINE 8 MG in SODIUM CHLORIDE 0.9% 242 ML IV PRN (20:06)
[2020-09-27] MEDS: fentaNYL INJ 1,250 MCG in SODIUM CHLORIDE 0.9% 225 ML IV PRN ×4 (03:26→20:50)
[2020-09-27 04:53] LABS: Allen Test Positive; Pt O2 Delivery Device Ventilator
[2020-09-27 04:54] LABS: ABG Base Excess 4.1 MMOL/L (-2.5-2.5); ABG HCO3 27.9 MMOL/L (20-26); ABG Oxygen Saturation 94.4 % (95-100); ABG PCO2 58.7 MM HG (35-48); ABG PH 7.341 (7.35-7.45); ABG PO2 74.2 MM HG (80-95); ABG TCO2 27.8 MMOL/L (23-27)
[2020-09-27 06:03] LABS: Basophils % 0.1 % (0.0-0.8); Hematocrit 43.3 VOL% (35.7-47.0); Immature Granulocytes % 2.7 %; Immature Granulocytes Absolute 0.61 #; Lymphocytes # 0.7 10*3/uL (1.4-4.0); Mean Corpuscular Volume 80.8 FL (87-102); Mean Platelet Volume 11.8 FL (9.6-12.0); Monocytes % 5.4 % (1.7-12.7); Neutrophils % 88.8 % (38.7-73.9); Platelet Count 199 T/CUMM (130-400); Red Blood Count 5.36 MC/CUMM (3.8-5.5); Red Cell Distribution Width 15.2 % (9.3-17.3); White Blood Count 22.2 T/CUMM (4-12)
[2020-09-27] MEDS: INSULIN LISPRO 100 UNIT/ML SUBCUT SCH ×3 (06:17→17:58)
[2020-09-27 06:19] LABS: INR 1.2; PT Patient Result 12.4 SECS (9.8-11.9)
[2020-09-27 06:29] LABS: Alanine Aminotransferase 61 U/L (13-56); Albumin 2.2 G/DL (3.4-5.0); Alkaline Phosphatase 73 U/L (45-117); Aspartate Amino Transferase 53 U/L (0-37); Bilirubin,Total < 0.39 MG/DL (0.2-1.0); Blood Urea Nitrogen 32 MG/DL (7-18); Calcium 8.3 MG/DL (8.5-10.1); Carbon Dioxide 29 MMOL/L (21-32); Estimated Glom Filtration Rate 99 ML/MIN; Glucose 275 MG/DL (74-106); Potassium 5.1 MMOL/L (3.5-5.1); Sodium 143 MMOL/L (136-145); Total Protein 6.1 G/DL (6.4-8.3)
[2020-09-27 07:12] LABS: Lymphocytes 2 % (20-55); Platelet Estimate Adequate; Polychromasia Slight; Segmented Neutrophils 83 % (50-85); Total Cells Counted 100
[2020-09-27] MEDS ORDERED: SODIUM CHLORIDE 0.9% 1,000 ML IV ONE (08:50)
[2020-09-27] MEDS: ASCORBIC ACID 500 MG TABLET PO SCH ×2 (08:53→20:04)
[2020-09-27] MEDS: CETIRIZINE 10 MG TABLET PO SCH (08:53)
[2020-09-27] MEDS: FAMOTIDINE 20 MG/2 ML VIAL IV SCH ×2 (08:53→20:04)
[2020-09-27] MEDS: CHOLECALCIFEROL 1,000 UNIT TABLET PO SCH (08:53)
[2020-09-27] MEDS: GABAPENTIN 300 MG CAPSULE PO SCH ×2 (08:53→20:05)
[2020-09-27] MEDS: ZINC GLUCONATE 50 MG TABLET PO SCH (08:53)
[2020-09-27] MEDS: LEVOTHYROXINE 88 MCG TABLET PO SCH (08:53)
[2020-09-27] MEDS: methylPREDNISolone SOD SUC 40 MG/1 ML VIAL IV SCH ×2 (08:54→15:22)
[2020-09-27] MEDS: ENOXAPARIN 60 MG/0.6 ML SYRINGE SUBCUT SCH ×2 (08:54→20:04)
[2020-09-27] MEDS: MORPHINE 4 MG/1 ML VIAL IV PRN ×2 (10:13→17:20)
[2020-09-27 14:23] LABS: ABG Base Excess 4.4 MMOL/L (-2.5-2.5); ABG HCO3 28.1 MMOL/L (20-26); ABG Oxygen Saturation 88.4 % (95-100); ABG PCO2 56.6 MM HG (35-48); ABG PH 7.355 (7.35-7.45); ABG PO2 57.7 MM HG (80-95); ABG TCO2 27.8 MMOL/L (23-27)
[2020-09-27] MEDS ORDERED: FUROSEMIDE 40 MG/4 ML VIAL IV ONE (14:37)
[2020-09-27] MEDS: FUROSEMIDE 40 MG/4 ML VIAL IV SCH (15:24)
[2020-09-27] MEDS: ALBUTEROL INHALER 18 GM INH SCH (18:00)
[2020-09-27] MEDS ORDERED: INSULIN GLARGINE 100 UNIT/ML SUBCUT ONE (19:58)
[2020-09-27] MEDS: ASPIRIN CHEW 81 MG TABLET PO SCH (20:05)
[2020-09-27] MEDS ORDERED: INSULIN GLARGINE 100 UNIT/ML SUBCUT SCH (21:00)
[2020-09-28] MEDS: methylPREDNISolone SOD SUC 40 MG/1 ML VIAL IV SCH ×3 (00:33→15:53)
[2020-09-28] MEDS: INSULIN LISPRO 100 UNIT/ML SUBCUT SCH ×4 (00:33→18:33)
[2020-09-28] MEDS: fentaNYL INJ 1,250 MCG in SODIUM CHLORIDE 0.9% 225 ML IV PRN ×5 (00:34→21:23)
[2020-09-28] MEDS: ALBUTEROL INHALER 18 GM INH SCH ×4 (00:34→18:33)
[2020-09-28] MEDS ORDERED: FUROSEMIDE 40 MG/4 ML VIAL IV ONE (03:00)
[2020-09-28 04:53] LABS: Albumin 2.3 G/DL (3.4-5.0); Bilirubin,Total 0.6 MG/DL (0.2-1.0); Calcium 8.2 MG/DL (8.5-10.1); Osmolality,Calculated 296.3 MOS/KG (273-304); Potassium 4.7 MMOL/L (3.5-5.1); Total Protein 6.2 G/DL (6.4-8.3)
[2020-09-28 04:55] LABS: ABG Base Excess 7.6 MMOL/L (-2.5-2.5); ABG HCO3 31.4 MMOL/L (20-26); ABG Oxygen Saturation 97.6 % (95-100); ABG PCO2 65.5 MM HG (35-48); ABG PH 7.349 (7.35-7.45); ABG TCO2 31.5 MMOL/L (23-27); Allen Test Positive; Pt O2 Delivery Device Ventilator
[2020-09-28 04:59] LABS: Basophils # 0.1 10*3/uL (0.0-0.2); Basophils % 0.2 % (0.0-0.8); Hematocrit 45.9 VOL% (35.7-47.0); Immature Granulocytes % 1.5 %; Immature Granulocytes Absolute 0.44 #; Lymphocytes # 1.1 10*3/uL (1.4-4.0); Lymphocytes % 3.9 % (21.3-54.2); Mean Corpuscular HGB Conc 30.5 GM/DL (32-36); Mean Platelet Volume 11.5 FL (9.6-12.0); Monocytes % 8.4 % (1.7-12.7); Platelet Count 199 T/CUMM (130-400); Red Blood Count 5.67 MC/CUMM (3.8-5.5); Red Cell Distribution Width 15.1 % (9.3-17.3); White Blood Count 28.9 T/CUMM (4-12)
[2020-09-28 06:29] LABS: Lymphocytes 4 % (20-55); Platelet Estimate Normal; Segmented Neutrophils 89 % (50-85); Total Cells Counted 100
[2020-09-28] MEDS ORDERED: INSULIN GLARGINE 100 UNIT/ML SUBCUT ONE (08:22)
[2020-09-28] MEDS: NOREPINEPHRINE 8 MG in SODIUM CHLORIDE 0.9% 242 ML IV PRN (08:58)
[2020-09-28] MEDS: ZINC GLUCONATE 50 MG TABLET PO SCH (09:00)
[2020-09-28] MEDS: CHOLECALCIFEROL 1,000 UNIT TABLET PO SCH (09:00)
[2020-09-28] MEDS: CETIRIZINE 10 MG TABLET PO SCH (09:00)
[2020-09-28] MEDS: GABAPENTIN 300 MG CAPSULE PO SCH ×2 (09:00→21:32)
[2020-09-28] MEDS: ENOXAPARIN 60 MG/0.6 ML SYRINGE SUBCUT SCH ×2 (09:00→21:32)
[2020-09-28] MEDS: LEVOTHYROXINE 88 MCG TABLET PO SCH (09:00)
[2020-09-28] MEDS: ASCORBIC ACID 500 MG TABLET PO SCH ×2 (09:00→21:32)
[2020-09-28] MEDS: FAMOTIDINE 20 MG/2 ML VIAL IV SCH ×2 (09:00→21:32)
[2020-09-28] MEDS: FUROSEMIDE 40 MG/4 ML VIAL IV SCH ×2 (09:48→15:55)
[2020-09-28] MEDS: INSULIN GLARGINE 100 UNIT/ML SUBCUT SCH (21:32)
[2020-09-28] MEDS: ASPIRIN CHEW 81 MG TABLET PO SCH (21:32)
[2020-09-29] MEDS: INSULIN LISPRO 100 UNIT/ML SUBCUT SCH ×4 (01:06→18:15)
[2020-09-29] MEDS: fentaNYL INJ 1,250 MCG in SODIUM CHLORIDE 0.9% 225 ML IV PRN ×4 (02:18→22:10)
[2020-09-29 04:42] LABS: ABG Base Excess 28.5 MMOL/L (-2.5-2.5); ABG HCO3 54.8 MMOL/L (20-26); ABG Oxygen Saturation 96.6 % (95-100); ABG PCO2 58.3 MM HG (35-48); ABG PO2 87.6 MM HG (80-95); ABG TCO2 56.6 MMOL/L (23-27); Allen Test Positive; Pt O2 Delivery Device Ventilator
[2020-09-29 04:43] LABS: ABG PH 7.591 (7.35-7.45)
[2020-09-29 04:43] LABS: Basophils # 0.1 10*3/uL (0.0-0.2); Basophils % 0.4 % (0.0-0.8); Hematocrit 42.8 VOL% (35.7-47.0); Hemoglobin 13.2 GM/DL (12.0-16.0); Immature Granulocytes % 1.2 %; Immature Granulocytes Absolute 0.27 #; Lymphocytes # 1.1 10*3/uL (1.4-4.0); Lymphocytes % 4.7 % (21.3-54.2); Mean Corpuscular HGB Conc 30.8 GM/DL (32-36); Mean Corpuscular Volume 79.1 FL (87-102); Mean Platelet Volume 11.2 FL (9.6-12.0); Monocytes % 8.8 % (1.7-12.7); Neutrophils % 84.9 % (38.7-73.9); Platelet Count 160 T/CUMM (130-400); Red Blood Count 5.41 MC/CUMM (3.8-5.5); Red Cell Distribution Width 14.7 % (9.3-17.3); White Blood Count 22.8 T/CUMM (4-12)
[2020-09-29] MEDS: methylPREDNISolone SOD SUC 40 MG/1 ML VIAL IV SCH ×2 (04:54→16:48)
[2020-09-29 05:16] LABS: Hypochromasia 1+; Lymphocytes 3 % (20-55); Microcytosis 1+; Ovalocytes Slight; Platelet Estimate Adequate; Segmented Neutrophils 89 % (50-85); Total Cells Counted 100
[2020-09-29 05:24] LABS: Bilirubin,Total 0.7 MG/DL (0.2-1.0); Calcium 8.4 MG/DL (8.5-10.1); Osmolality,Calculated 297.8 MOS/KG (273-304); Potassium 4.5 MMOL/L (3.5-5.1); Total Protein 5.9 G/DL (6.4-8.3)
[2020-09-29] MEDS: ALBUTEROL INHALER 18 GM INH SCH ×4 (07:36→19:44)
[2020-09-29] MEDS: CETIRIZINE 10 MG TABLET PO SCH (08:55)
[2020-09-29] MEDS: CHOLECALCIFEROL 1,000 UNIT TABLET PO SCH (09:13)
[2020-09-29] MEDS: LEVOTHYROXINE 88 MCG TABLET PO SCH (09:13)
[2020-09-29] MEDS: GABAPENTIN 300 MG CAPSULE PO SCH ×2 (09:13→20:19)
[2020-09-29] MEDS: ENOXAPARIN 60 MG/0.6 ML SYRINGE SUBCUT SCH ×2 (09:14→20:18)
[2020-09-29] MEDS: ASCORBIC ACID 500 MG TABLET PO SCH ×2 (09:14→20:18)
[2020-09-29] MEDS: ZINC GLUCONATE 50 MG TABLET PO SCH (09:14)
[2020-09-29] MEDS: FAMOTIDINE 20 MG/2 ML VIAL IV SCH ×2 (09:17→20:18)
[2020-09-29] MEDS: FUROSEMIDE 40 MG/4 ML VIAL IV SCH (09:18)
[2020-09-29] MEDS: MENTHOL/ZINC OXIDE OINT 71 GM JAR TOP SCH ×2 (10:37→20:19)
[2020-09-29] MEDS: acetaZOLAMIDE 250 MG TABLET PO SCH ×2 (12:52→22:09)
[2020-09-29] MEDS: INSULIN GLARGINE 100 UNIT/ML SUBCUT SCH (20:18)
[2020-09-29] MEDS: ASPIRIN CHEW 81 MG TABLET PO SCH (20:18)
[2020-09-30] MEDS: INSULIN LISPRO 100 UNIT/ML SUBCUT SCH ×4 (00:30→18:17)
[2020-09-30] MEDS: ALBUTEROL INHALER 18 GM INH SCH ×4 (01:36→19:39)
[2020-09-30 04:18] LABS: ABG Base Excess 9.1 MMOL/L (-2.5-2.5); ABG HCO3 36.3 MMOL/L (20-26); ABG Oxygen Saturation 97.5 % (95-100); ABG PCO2 62.5 MM HG (35-48); ABG PH 7.382 (7.35-7.45); ABG PO2 108.1 MM HG (80-95); ABG TCO2 38.2 MMOL/L (23-27); Allen Test Positive; Pt O2 Delivery Device Ventilator
[2020-09-30] MEDS: methylPREDNISolone SOD SUC 40 MG/1 ML VIAL IV SCH ×2 (04:29→17:25)
[2020-09-30] MEDS: fentaNYL INJ 1,250 MCG in SODIUM CHLORIDE 0.9% 225 ML IV PRN ×4 (04:32→20:15)
[2020-09-30 05:55] LABS: Basophils % 0.2 % (0.0-0.8); Eosinophils % 0.1 % (0.00-10.9); Hematocrit 37.5 VOL% (35.7-47.0); Hemoglobin 11.7 GM/DL (12.0-16.0); Lymphocytes # 1.2 10*3/uL (1.4-4.0); Mean Corpuscular HGB Conc 31.2 GM/DL (32-36); Mean Corpuscular Volume 79.6 FL (87-102); Monocytes % 8.1 % (1.7-12.7); Neutrophils % 84.6 % (38.7-73.9); Platelet Count 139 T/CUMM (130-400); Red Blood Count 4.71 MC/CUMM (3.8-5.5); Red Cell Distribution Width 14.6 % (9.3-17.3); White Blood Count 20.2 T/CUMM (4-12)
[2020-09-30 06:17] LABS: Bilirubin,Total 0.5 MG/DL (0.2-1.0); Osmolality,Calculated 292.4 MOS/KG (273-304); Total Protein 5.7 G/DL (6.4-8.3)
[2020-09-30 06:39] LABS: Eosinophils 1 % (0-10); Lymphocytes 4 % (20-55); Segmented Neutrophils 90 % (50-85); Total Cells Counted 100
[2020-09-30 06:40] LABS: Hypochromasia 1+; Microcytosis Slight; Platelet Estimate Normal
[2020-09-30] MEDS: GABAPENTIN 300 MG CAPSULE PO SCH ×2 (08:34→21:05)
[2020-09-30] MEDS: LEVOTHYROXINE 88 MCG TABLET PO SCH (08:34)
[2020-09-30] MEDS: CHOLECALCIFEROL 1,000 UNIT TABLET PO SCH (08:34)
[2020-09-30] MEDS: ZINC GLUCONATE 50 MG TABLET PO SCH (08:34)
[2020-09-30] MEDS: CETIRIZINE 10 MG TABLET PO SCH (08:34)
[2020-09-30] MEDS: ASCORBIC ACID 500 MG TABLET PO SCH ×2 (08:34→21:05)
[2020-09-30] MEDS: FAMOTIDINE 20 MG/2 ML VIAL IV SCH ×2 (08:35→21:07)
[2020-09-30] MEDS: ENOXAPARIN 60 MG/0.6 ML SYRINGE SUBCUT SCH ×2 (08:35→21:05)
[2020-09-30] MEDS: MENTHOL/ZINC OXIDE OINT 71 GM JAR TOP SCH ×2 (08:35→21:04)
[2020-09-30] MEDS: acetaZOLAMIDE 250 MG TABLET PO SCH ×2 (09:09→22:30)
[2020-09-30] MEDS: ROCURONIUM 500 MG in SODIUM CHLORIDE 0.9% 500 ML IV PRN ×2 (13:07→21:37)
[2020-09-30] MEDS: MIDAZOLAM 100 MG in SODIUM CHLORIDE 0.9% 80 ML IV PRN (13:07)
[2020-09-30] MEDS: ASPIRIN CHEW 81 MG TABLET PO SCH (21:04)
[2020-09-30] MEDS: INSULIN GLARGINE 100 UNIT/ML SUBCUT SCH (21:04)
[2020-10-01] MEDS: fentaNYL INJ 2,500 MCG in SODIUM CHLORIDE 0.9% 450 ML IV PRN ×2 (00:24→13:55)
[2020-10-01] MEDS: INSULIN LISPRO 100 UNIT/ML SUBCUT SCH ×4 (00:39→18:19)
[2020-10-01] MEDS: ALBUTEROL INHALER 18 GM INH SCH ×4 (00:40→18:19)
[2020-10-01 03:00] LABS: ABG Base Excess 6.5 MMOL/L (-2.5-2.5); ABG HCO3 34.5 MMOL/L (20-26); ABG Oxygen Saturation 93.9 % (95-100); ABG PCO2 67.7 MM HG (35-48); ABG PH 7.325 (7.35-7.45); ABG PO2 75.6 MM HG (80-95); ABG TCO2 36.6 MMOL/L (23-27); Allen Test Positive; Pt O2 Delivery Device Ventilator
[2020-10-01] MEDS: methylPREDNISolone SOD SUC 40 MG/1 ML VIAL IV SCH ×2 (04:50→15:53)
[2020-10-01 05:19] LABS: Basophils % 0.2 % (0.0-0.8); Eosinophils % 0.1 % (0.00-10.9); Hemoglobin 11.3 GM/DL (12.0-16.0); Immature Granulocytes % 1.3 %; Immature Granulocytes Absolute 0.25 #; Lymphocytes # 0.9 10*3/uL (1.4-4.0); Lymphocytes % 4.6 % (21.3-54.2); Mean Corpuscular HGB Conc 30.5 GM/DL (32-36); Mean Corpuscular Volume 78.7 FL (87-102); Mean Platelet Volume 11.9 FL (9.6-12.0); Monocytes % 7.9 % (1.7-12.7); Neutrophils % 85.9 % (38.7-73.9); Platelet Count 120 T/CUMM (130-400); Red Cell Distribution Width 14.5 % (9.3-17.3); White Blood Count 19.7 T/CUMM (4-12)
[2020-10-01 05:41] LABS: Lymphocytes 7 % (20-55); Segmented Neutrophils 90 % (50-85); Total Cells Counted 100
[2020-10-01 05:42] LABS: Hypochromasia 1+; Microcytosis 1+
[2020-10-01 05:59] LABS: Albumin 1.9 G/DL (3.4-5.0); Bilirubin,Total 0.8 MG/DL (0.2-1.0); Osmolality,Calculated 286.5 MOS/KG (273-304); Potassium 4.1 MMOL/L (3.5-5.1); Total Protein 5.5 G/DL (6.4-8.3)
[2020-10-01] MEDS: ROCURONIUM 500 MG in SODIUM CHLORIDE 0.9% 500 ML IV PRN ×3 (06:30→23:30)
[2020-10-01] MEDS: MIDAZOLAM 100 MG in SODIUM CHLORIDE 0.9% 80 ML IV PRN (06:54)
[2020-10-01] MEDS: GABAPENTIN 300 MG CAPSULE PO SCH ×2 (08:46→20:43)
[2020-10-01] MEDS: CETIRIZINE 10 MG TABLET PO SCH (08:46)
[2020-10-01] MEDS: CHOLECALCIFEROL 1,000 UNIT TABLET PO SCH (08:46)
[2020-10-01] MEDS: ZINC GLUCONATE 50 MG TABLET PO SCH (08:46)
[2020-10-01] MEDS: ASCORBIC ACID 500 MG TABLET PO SCH ×2 (08:46→20:47)
[2020-10-01] MEDS: ENOXAPARIN 60 MG/0.6 ML SYRINGE SUBCUT SCH ×2 (08:47→20:43)
[2020-10-01] MEDS: FAMOTIDINE 20 MG/2 ML VIAL IV SCH ×2 (08:47→20:43)
[2020-10-01] MEDS: LEVOTHYROXINE 88 MCG TABLET PO SCH (08:47)
[2020-10-01] MEDS: MENTHOL/ZINC OXIDE OINT 71 GM JAR TOP SCH ×2 (08:54→20:45)
[2020-10-01] MEDS: acetaZOLAMIDE 250 MG TABLET PO SCH (09:37)
[2020-10-01] MEDS: ASPIRIN CHEW 81 MG TABLET PO SCH (20:43)
[2020-10-01] MEDS: INSULIN GLARGINE 100 UNIT/ML SUBCUT SCH (20:44)
[2020-10-02] MEDS: INSULIN LISPRO 100 UNIT/ML SUBCUT SCH ×4 (01:19→18:09)
[2020-10-02] MEDS: ALBUTEROL INHALER 18 GM INH SCH ×4 (01:20→18:10)
[2020-10-02] MEDS: fentaNYL INJ 2,500 MCG in SODIUM CHLORIDE 0.9% 450 ML IV PRN ×2 (03:50→17:18)
[2020-10-02 04:23] LABS: ABG Base Excess 5.6 MMOL/L (-2.5-2.5); ABG HCO3 29.4 MMOL/L (20-26); ABG Oxygen Saturation 94.9 % (95-100); ABG PCO2 53.4 MM HG (35-48); ABG PH 7.384 (7.35-7.45); ABG TCO2 28.8 MMOL/L (23-27); Allen Test Positive; Pt O2 Delivery Device Ventilator
[2020-10-02] MEDS: methylPREDNISolone SOD SUC 40 MG/1 ML VIAL IV SCH ×2 (04:24→16:13)
[2020-10-02 04:58] LABS: Basophils % 0.1 % (0.0-0.8); Eosinophils # 0.1 10*3/uL (0.0-0.87); Eosinophils % 0.4 % (0.00-10.9); Immature Granulocytes % 1.7 %; Immature Granulocytes Absolute 0.38 #; Lymphocytes # 1.4 10*3/uL (1.4-4.0); Lymphocytes % 6.4 % (21.3-54.2); Mean Corpuscular HGB Conc 31.4 GM/DL (32-36); Mean Corpuscular Volume 78.1 FL (87-102); Mean Platelet Volume 12.2 FL (9.6-12.0); Monocytes % 7.6 % (1.7-12.7); Neutrophils % 83.8 % (38.7-73.9); Platelet Count 144 T/CUMM (130-400); Red Blood Count 4.48 MC/CUMM (3.8-5.5); Red Cell Distribution Width 14.7 % (9.3-17.3); White Blood Count 22.4 T/CUMM (4-12)
[2020-10-02 05:21] LABS: Hypochromasia 1+; Lymphocytes 5 % (20-55); Microcytosis 1+; Platelet Estimate Adequate; Segmented Neutrophils 90 % (50-85); Total Cells Counted 100
[2020-10-02 05:29] LABS: Calcium 8.1 MG/DL (8.5-10.1); Osmolality,Calculated 284.7 MOS/KG (273-304); Potassium 4.2 MMOL/L (3.5-5.1)
[2020-10-02] MEDS: MIDAZOLAM 100 MG in SODIUM CHLORIDE 0.9% 80 ML IV PRN ×2 (07:47→17:55)
[2020-10-02] MEDS: FUROSEMIDE 40 MG/4 ML VIAL IV SCH ×2 (08:23→16:13)
[2020-10-02] MEDS: ENOXAPARIN 60 MG/0.6 ML SYRINGE SUBCUT SCH (08:24)
[2020-10-02] MEDS: MENTHOL/ZINC OXIDE OINT 71 GM JAR TOP SCH ×2 (08:24→23:00)
[2020-10-02] MEDS: CHOLECALCIFEROL 1,000 UNIT TABLET PO SCH (08:25)
[2020-10-02] MEDS: ZINC GLUCONATE 50 MG TABLET PO SCH (08:25)
[2020-10-02] MEDS: CETIRIZINE 10 MG TABLET PO SCH (08:25)
[2020-10-02] MEDS: FAMOTIDINE 20 MG/2 ML VIAL IV SCH ×2 (08:25→20:35)
[2020-10-02] MEDS: ASCORBIC ACID 500 MG TABLET PO SCH ×2 (08:25→20:35)
[2020-10-02] MEDS: GABAPENTIN 300 MG CAPSULE PO SCH ×2 (08:25→20:35)
[2020-10-02] MEDS: LEVOTHYROXINE 88 MCG TABLET PO SCH (08:25)
[2020-10-02] MEDS ORDERED: POTASSIUM PHOSPHATE 40 MMOL in SODIUM CHLORIDE 0.9% 250 ML IV ONE (10:00)
[2020-10-02] MEDS: ASPIRIN CHEW 81 MG TABLET PO SCH (20:35)
[2020-10-02] MEDS: INSULIN GLARGINE 100 UNIT/ML SUBCUT SCH (20:36)
[2020-10-03] MEDS: INSULIN LISPRO 100 UNIT/ML SUBCUT SCH ×4 (01:16→17:37)
[2020-10-03] MEDS: ROCURONIUM 500 MG in SODIUM CHLORIDE 0.9% 500 ML IV PRN ×2 (01:30→16:45)
[2020-10-03] MEDS: MIDAZOLAM 100 MG in SODIUM CHLORIDE 0.9% 80 ML IV PRN ×3 (02:11→18:13)
[2020-10-03] MEDS: ALBUTEROL INHALER 18 GM INH SCH ×4 (02:26→19:42)
[2020-10-03] MEDS: fentaNYL INJ 2,500 MCG in SODIUM CHLORIDE 0.9% 450 ML IV PRN ×4 (02:43→20:55)
[2020-10-03 04:17] LABS: Basophils % 0.1 % (0.0-0.8); Eosinophils % 0.1 % (0.00-10.9); Hematocrit 32.9 VOL% (35.7-47.0); Hemoglobin 10.5 GM/DL (12.0-16.0); Immature Granulocytes % 1.4 %; Lymphocytes # 0.9 10*3/uL (1.4-4.0); Lymphocytes % 4.3 % (21.3-54.2); Mean Corpuscular HGB Conc 31.9 GM/DL (32-36); Mean Corpuscular Volume 77.2 FL (87-102); Mean Platelet Volume 11.8 FL (9.6-12.0); Monocytes % 7.3 % (1.7-12.7); Neutrophils % 86.8 % (38.7-73.9); Platelet Count 163 T/CUMM (130-400); Red Blood Count 4.26 MC/CUMM (3.8-5.5); Red Cell Distribution Width 14.8 % (9.3-17.3); White Blood Count 21.4 T/CUMM (4-12)
[2020-10-03 04:41] LABS: Calcium 7.6 MG/DL (8.5-10.1); Osmolality,Calculated 285.7 MOS/KG (273-304); Potassium 4.4 MMOL/L (3.5-5.1)
[2020-10-03 04:46] LABS: Hypochromasia Slight; Lymphocytes 8 % (20-55); Nucleated Red Blood Cells 1 (0-5); Platelet Estimate Normal; Segmented Neutrophils 90 % (50-85); Total Cells Counted 100
[2020-10-03 04:47] LABS: Microcytosis 1+
[2020-10-03 04:52] LABS: Allen Test Positive; Pt O2 Delivery Device Ventilator
[2020-10-03 04:54] LABS: ABG HCO3 32.8 MMOL/L (20-26); ABG Oxygen Saturation 98.4 % (95-100); ABG PCO2 56.9 MM HG (35-48); ABG PH 7.406 (7.35-7.45); ABG TCO2 31.9 MMOL/L (23-27)
[2020-10-03] MEDS: methylPREDNISolone SOD SUC 40 MG/1 ML VIAL IV SCH ×2 (05:00→15:01)
[2020-10-03] MEDS: ASCORBIC ACID 500 MG TABLET PO SCH ×2 (08:35→21:50)
[2020-10-03] MEDS: GABAPENTIN 300 MG CAPSULE PO SCH ×2 (08:35→21:50)
[2020-10-03] MEDS: LEVOTHYROXINE 88 MCG TABLET PO SCH (08:35)
[2020-10-03] MEDS: CHOLECALCIFEROL 1,000 UNIT TABLET PO SCH (08:35)
[2020-10-03] MEDS: FAMOTIDINE 20 MG/2 ML VIAL IV SCH ×2 (08:35→21:57)
[2020-10-03] MEDS: CETIRIZINE 10 MG TABLET PO SCH (08:35)
[2020-10-03] MEDS: ZINC GLUCONATE 50 MG TABLET PO SCH (08:35)
[2020-10-03] MEDS: FUROSEMIDE 40 MG/4 ML VIAL IV SCH ×2 (08:36→15:00)
[2020-10-03] MEDS: MENTHOL/ZINC OXIDE OINT 71 GM JAR TOP SCH ×2 (08:36→22:00)
[2020-10-03] MEDS: PIPERACILLIN/TAZOBACTAM 3,375 MG in SODIUM CHLORIDE 0.9% 100 ML IV SCH ×2 (10:23→16:44)
[2020-10-03] MEDS: INSULIN GLARGINE 100 UNIT/ML SUBCUT SCH (21:49)
[2020-10-03] MEDS: ASPIRIN CHEW 81 MG TABLET PO SCH (21:50)
[2020-10-04] MEDS: INSULIN LISPRO 100 UNIT/ML SUBCUT SCH ×4 (00:43→17:48)
[2020-10-04] MEDS: ALBUTEROL INHALER 18 GM INH SCH ×4 (00:43→19:38)
[2020-10-04] MEDS: PIPERACILLIN/TAZOBACTAM 3,375 MG in SODIUM CHLORIDE 0.9% 100 ML IV SCH ×2 (01:45→10:30)
[2020-10-04] MEDS: MIDAZOLAM 100 MG in SODIUM CHLORIDE 0.9% 80 ML IV PRN ×3 (02:41→19:03)
[2020-10-04 02:57] LABS: ABG Base Excess 8.2 MMOL/L (-2.5-2.5); ABG HCO3 31.9 MMOL/L (20-26); ABG Oxygen Saturation 97.6 % (95-100); ABG PH 7.412 (7.35-7.45)
[2020-10-04 04:54] LABS: Basophils % 0.1 % (0.0-0.8); Eosinophils % 0.2 % (0.00-10.9); Hematocrit 32.1 VOL% (35.7-47.0); Hemoglobin 10.2 GM/DL (12.0-16.0); Immature Granulocytes % 2.2 %; Lymphocytes # 1.3 10*3/uL (1.4-4.0); Lymphocytes % 5.7 % (21.3-54.2); Mean Corpuscular HGB Conc 31.8 GM/DL (32-36); Mean Corpuscular Volume 77.3 FL (87-102); Mean Platelet Volume 11.9 FL (9.6-12.0); Monocytes % 10.5 % (1.7-12.7); Neutrophils % 81.3 % (38.7-73.9); Platelet Count 172 T/CUMM (130-400); Red Blood Count 4.15 MC/CUMM (3.8-5.5); White Blood Count 22.6 T/CUMM (4-12)
[2020-10-04 05:06] LABS: Calcium 7.8 MG/DL (8.5-10.1); Osmolality,Calculated 289.4 MOS/KG (273-304); Potassium 4.1 MMOL/L (3.5-5.1)
[2020-10-04] MEDS: methylPREDNISolone SOD SUC 40 MG/1 ML VIAL IV SCH ×2 (05:16→16:13)
[2020-10-04 05:41] LABS: Hypochromasia Slight; Lymphocytes 3 % (20-55); Platelet Estimate Adequate; Segmented Neutrophils 90 % (50-85); Total Cells Counted 100
[2020-10-04 05:42] LABS: Microcytosis Slight
[2020-10-04] MEDS: fentaNYL INJ 2,500 MCG in SODIUM CHLORIDE 0.9% 450 ML IV PRN ×2 (06:27→14:01)
[2020-10-04] MEDS: ROCURONIUM 500 MG in SODIUM CHLORIDE 0.9% 500 ML IV PRN ×2 (07:56→23:15)
[2020-10-04] MEDS: FUROSEMIDE 40 MG/4 ML VIAL IV SCH ×2 (08:00→16:13)
[2020-10-04] MEDS: ASCORBIC ACID 500 MG TABLET PO SCH ×2 (08:02→20:18)
[2020-10-04] MEDS: LEVOTHYROXINE 88 MCG TABLET PO SCH (08:02)
[2020-10-04] MEDS: ZINC GLUCONATE 50 MG TABLET PO SCH (08:02)
[2020-10-04] MEDS: CETIRIZINE 10 MG TABLET PO SCH (08:02)
[2020-10-04] MEDS: CHOLECALCIFEROL 1,000 UNIT TABLET PO SCH (08:02)
[2020-10-04] MEDS: GABAPENTIN 300 MG CAPSULE PO SCH ×2 (08:02→20:18)
[2020-10-04] MEDS: FAMOTIDINE 20 MG/2 ML VIAL IV SCH ×2 (08:03→20:18)
[2020-10-04] MEDS: MENTHOL/ZINC OXIDE OINT 71 GM JAR TOP SCH ×2 (08:03→20:17)
[2020-10-04] MEDS ORDERED: MEROPENEM 500 MG in SODIUM CHLORIDE 0.9% 100 ML IV SCH (11:00)
[2020-10-04] MEDS: LEVOFLOXACIN INJ 750 MG in PREMIX 1 EACH IV SCH (13:09)
[2020-10-04] MEDS: AMPICILLIN INJ 1,000 MG in SODIUM CHLORIDE 0.9% 100 ML IV SCH ×2 (16:13→20:17)
[2020-10-04] MEDS: INSULIN GLARGINE 100 UNIT/ML SUBCUT SCH (20:17)
[2020-10-04] MEDS: ASPIRIN CHEW 81 MG TABLET PO SCH (20:17)
[2020-10-05] MEDS: fentaNYL INJ 2,500 MCG in SODIUM CHLORIDE 0.9% 450 ML IV PRN ×2 (00:03→09:01)
[2020-10-05] MEDS: ALBUTEROL INHALER 18 GM INH SCH ×4 (00:46→20:26)
[2020-10-05] MEDS: INSULIN LISPRO 100 UNIT/ML SUBCUT SCH ×4 (00:48→17:49)
[2020-10-05] MEDS: AMPICILLIN INJ 1,000 MG in SODIUM CHLORIDE 0.9% 100 ML IV SCH ×4 (03:28→20:27)
[2020-10-05] MEDS: methylPREDNISolone SOD SUC 40 MG/1 ML VIAL IV SCH ×2 (03:28→15:01)
[2020-10-05 04:19] LABS: ABG Base Excess 9.4 MMOL/L (-2.5-2.5); ABG HCO3 34.1 MMOL/L (20-26); ABG Oxygen Saturation 93.3 % (95-100); ABG PCO2 47.4 MM HG (35-48); ABG PH 7.475 (7.35-7.45); ABG PO2 67.9 MM HG (80-95); ABG TCO2 35.6 MMOL/L (23-27); Allen Test Positive; Pt O2 Delivery Device Ventilator
[2020-10-05] MEDS: MIDAZOLAM 100 MG in SODIUM CHLORIDE 0.9% 80 ML IV PRN ×2 (04:20→12:20)
[2020-10-05 05:29] LABS: Basophils % 0.1 % (0.0-0.8); Eosinophils % 0.1 % (0.00-10.9); Hematocrit 33.5 VOL% (35.7-47.0); Hemoglobin 10.7 GM/DL (12.0-16.0); Immature Granulocytes % 1.8 %; Immature Granulocytes Absolute 0.37 #; Lymphocytes # 1.1 10*3/uL (1.4-4.0); Lymphocytes % 5.1 % (21.3-54.2); Mean Corpuscular HGB Conc 31.9 GM/DL (32-36); Mean Corpuscular Volume 76.8 FL (87-102); Mean Platelet Volume 11.5 FL (9.6-12.0); Monocytes % 8.8 % (1.7-12.7); Neutrophils % 84.1 % (38.7-73.9); Platelet Count 167 T/CUMM (130-400); Red Blood Count 4.36 MC/CUMM (3.8-5.5); Red Cell Distribution Width 15.2 % (9.3-17.3); White Blood Count 21.1 T/CUMM (4-12)
[2020-10-05 05:53] LABS: Calcium 7.9 MG/DL (8.5-10.1); Osmolality,Calculated 285.5 MOS/KG (273-304)
[2020-10-05 06:30] LABS: Hypochromasia 1+; Lymphocytes 2 % (20-55); Microcytosis Slight; Platelet Estimate Adequate; Segmented Neutrophils 94 % (50-85); Total Cells Counted 100
[2020-10-05] MEDS: FAMOTIDINE 20 MG/2 ML VIAL IV SCH ×2 (08:11→20:27)
[2020-10-05] MEDS: ENOXAPARIN 60 MG/0.6 ML SYRINGE SUBCUT SCH (08:11)
[2020-10-05] MEDS: FUROSEMIDE 40 MG/4 ML VIAL IV SCH ×2 (08:12→15:00)
[2020-10-05] MEDS: GABAPENTIN 300 MG CAPSULE PO SCH ×2 (08:12→20:27)
[2020-10-05] MEDS: LEVOTHYROXINE 88 MCG TABLET PO SCH (08:12)
[2020-10-05] MEDS: CETIRIZINE 10 MG TABLET PO SCH (08:12)
[2020-10-05] MEDS: ZINC GLUCONATE 50 MG TABLET PO SCH (08:12)
[2020-10-05] MEDS: CHOLECALCIFEROL 1,000 UNIT TABLET PO SCH (08:12)
[2020-10-05] MEDS: ASCORBIC ACID 500 MG TABLET PO SCH ×2 (08:12→20:27)
[2020-10-05] MEDS: MENTHOL/ZINC OXIDE OINT 71 GM JAR TOP SCH ×2 (08:14→20:27)
[2020-10-05] MEDS ORDERED: hydrALAZINE 20 MG/1 ML VIAL IV PRN (11:45)
[2020-10-05] MEDS ORDERED: fentaNYL INJ 2,500 MCG in SODIUM CHLORIDE 0.9% 75 ML IV PRN (12:02)
[2020-10-05] MEDS: LEVOFLOXACIN INJ 750 MG in PREMIX 1 EACH IV SCH (12:02)
[2020-10-05] MEDS: LOSARTAN 25 MG TABLET PO SCH (14:59)
[2020-10-05] MEDS: INSULIN GLARGINE 100 UNIT/ML SUBCUT SCH (20:27)
[2020-10-05] MEDS: ASPIRIN CHEW 81 MG TABLET PO SCH (20:27)
[2020-10-06] MEDS: ALBUTEROL INHALER 18 GM INH SCH ×2 (00:30→08:39)
[2020-10-06] MEDS: INSULIN LISPRO 100 UNIT/ML SUBCUT SCH ×4 (00:30→17:49)
[2020-10-06] MEDS: AMPICILLIN INJ 1,000 MG in SODIUM CHLORIDE 0.9% 100 ML IV SCH ×4 (02:16→20:02)
[2020-10-06 04:20] LABS: Basophils % 0.1 % (0.0-0.8); Hematocrit 36.8 VOL% (35.7-47.0); Hemoglobin 11.7 GM/DL (12.0-16.0); Immature Granulocytes % 1.9 %; Immature Granulocytes Absolute 0.49 #; Lymphocytes # 1.4 10*3/uL (1.4-4.0); Lymphocytes % 5.4 % (21.3-54.2); Mean Corpuscular HGB Conc 31.8 GM/DL (32-36); Mean Corpuscular Volume 76.8 FL (87-102); Mean Platelet Volume 10.8 FL (9.6-12.0); Monocytes % 12.2 % (1.7-12.7); Neutrophils % 80.4 % (38.7-73.9); Platelet Count 227 T/CUMM (130-400); Red Blood Count 4.79 MC/CUMM (3.8-5.5); Red Cell Distribution Width 15.8 % (9.3-17.3); White Blood Count 25.2 T/CUMM (4-12)
[2020-10-06 04:22] LABS: Allen Test Positive; Pt O2 Delivery Device Ventilator
[2020-10-06 04:43] LABS: Hypochromasia 1+; Lymphocytes 4 % (20-55); Microcytosis 1+; Platelet Estimate Adequate; Segmented Neutrophils 88 % (50-85); Total Cells Counted 100
[2020-10-06 04:59] LABS: Calcium 8.2 MG/DL (8.5-10.1); Osmolality,Calculated 280.5 MOS/KG (273-304); Potassium 3.5 MMOL/L (3.5-5.1)
[2020-10-06] MEDS: methylPREDNISolone SOD SUC 40 MG/1 ML VIAL IV SCH ×2 (05:10→16:11)
[2020-10-06 05:11] LABS: ABG Base Excess 7.8 MMOL/L (-2.5-2.5); ABG HCO3 31.5 MMOL/L (20-26); ABG Oxygen Saturation 97.1 % (95-100); ABG PCO2 49.2 MM HG (35-48); ABG PH 7.439 (7.35-7.45); ABG PO2 91.2 MM HG (80-95); ABG TCO2 29.4 MMOL/L (23-27)
[2020-10-06] MEDS: FUROSEMIDE 40 MG/4 ML VIAL IV SCH (08:39)
[2020-10-06] MEDS: MENTHOL/ZINC OXIDE OINT 71 GM JAR TOP SCH ×2 (08:40→21:23)
[2020-10-06] MEDS: LEVOTHYROXINE 88 MCG TABLET PO SCH (08:40)
[2020-10-06] MEDS: CETIRIZINE 10 MG TABLET PO SCH (08:41)
[2020-10-06] MEDS: LOSARTAN 25 MG TABLET PO SCH (08:41)
[2020-10-06] MEDS: ASCORBIC ACID 500 MG TABLET PO SCH ×2 (08:41→20:04)
[2020-10-06] MEDS: GABAPENTIN 300 MG CAPSULE PO SCH (08:41)
[2020-10-06] MEDS: ZINC GLUCONATE 50 MG TABLET PO SCH (08:41)
[2020-10-06] MEDS: CHOLECALCIFEROL 1,000 UNIT TABLET PO SCH (08:42)
[2020-10-06] MEDS: FAMOTIDINE 20 MG/2 ML VIAL IV SCH ×2 (08:42→20:03)
[2020-10-06] MEDS ORDERED: methylPREDNISolone SOD SUC 40 MG/1 ML VIAL IV SCH (11:00)
[2020-10-06] MEDS: LOSARTAN 50 MG TABLET PO SCH (12:24)
[2020-10-06] MEDS: GABAPENTIN 300 MG CAPSULE PER TUBE SCH ×2 (12:25→20:04)
[2020-10-06] MEDS: LEVOFLOXACIN INJ 750 MG in PREMIX 1 EACH IV SCH (13:03)
[2020-10-06 16:37] LABS: Bilirubin,Urine Negative (Negative); Blood, Urine Large mg/dL (Negative); Glucose,Urine (UA) Negative (Negative); Ketones,Urine Negative (Negative); Nitrite,Urine Negative (Negative); Protein,Urine 30 MG/DL; RBC,Urine 1713 /HPF (0-4); Urine Appearance CLEAR (Clear); Urine Color Yellow (Yellow); Urine Specific Gravity 1.021 (1.001-1.035)
[2020-10-06] MEDS: INSULIN GLARGINE 100 UNIT/ML SUBCUT SCH (20:03)
[2020-10-06] MEDS: ASPIRIN CHEW 81 MG TABLET PO SCH (20:04)
[2020-10-07] MEDS: INSULIN LISPRO 100 UNIT/ML SUBCUT SCH ×4 (00:16→18:04)
[2020-10-07] MEDS: AMPICILLIN INJ 1,000 MG in SODIUM CHLORIDE 0.9% 100 ML IV SCH ×4 (04:05→20:43)
[2020-10-07] MEDS: methylPREDNISolone SOD SUC 40 MG/1 ML VIAL IV SCH ×2 (04:20→16:11)
[2020-10-07 04:39] LABS: ABG Base Excess 8.5 MMOL/L (-2.5-2.5); ABG HCO3 32.2 MMOL/L (20-26); ABG PCO2 47.5 MM HG (35-48); ABG PH 7.459 (7.35-7.45); ABG PO2 80.5 MM HG (80-95); ABG TCO2 29.5 MMOL/L (23-27); Allen Test Positive
[2020-10-07 04:59] LABS: Basophils # 0.1 10*3/uL (0.0-0.2); Basophils % 0.3 % (0.0-0.8); Eosinophils % 0.1 % (0.00-10.9); Hematocrit 38.8 VOL% (35.7-47.0); Hemoglobin 12.2 GM/DL (12.0-16.0); Immature Granulocytes % 1.6 %; Immature Granulocytes Absolute 0.38 #; Lymphocytes # 1.6 10*3/uL (1.4-4.0); Lymphocytes % 6.8 % (21.3-54.2); Mean Corpuscular HGB Conc 31.4 GM/DL (32-36); Mean Corpuscular Volume 77.9 FL (87-102); Mean Platelet Volume 10.9 FL (9.6-12.0); Monocytes % 10.7 % (1.7-12.7); Neutrophils % 80.5 % (38.7-73.9); Platelet Count 190 T/CUMM (130-400); Red Blood Count 4.98 MC/CUMM (3.8-5.5); Red Cell Distribution Width 16.3 % (9.3-17.3); White Blood Count 23.7 T/CUMM (4-12)
[2020-10-07 05:27] LABS: Albumin 2.2 G/DL (3.4-5.0); Calcium 8.4 MG/DL (8.5-10.1); Ferritin 1024.9 ng/ml (8-252); Osmolality,Calculated 285.3 MOS/KG (273-304); Potassium 3.6 MMOL/L (3.5-5.1); Total Protein 5.7 G/DL (6.4-8.3)
[2020-10-07 05:30] LABS: Hypochromasia 1+; Lymphocytes 9 % (20-55); Microcytosis 1+; Platelet Estimate Adequate; Segmented Neutrophils 86 % (50-85); Total Cells Counted 100
[2020-10-07] MEDS: GABAPENTIN 300 MG CAPSULE PER TUBE SCH ×2 (09:05→20:44)
[2020-10-07] MEDS: ASCORBIC ACID 500 MG TABLET PO SCH ×2 (09:06→20:45)
[2020-10-07] MEDS: CHOLECALCIFEROL 1,000 UNIT TABLET PO SCH (09:06)
[2020-10-07] MEDS: ZINC GLUCONATE 50 MG TABLET PO SCH (09:06)
[2020-10-07] MEDS: ACETAMINOPHEN 325 MG TABLET PO PRN ×2 (09:07→16:10)
[2020-10-07] MEDS: MENTHOL/ZINC OXIDE OINT 71 GM JAR TOP SCH ×2 (09:08→20:43)
[2020-10-07] MEDS: LOSARTAN 50 MG TABLET PO SCH (09:08)
[2020-10-07] MEDS: FUROSEMIDE 40 MG/4 ML VIAL IV SCH (09:10)
[2020-10-07] MEDS: FAMOTIDINE 20 MG/2 ML VIAL IV SCH ×2 (09:11→20:44)
[2020-10-07] MEDS: LEVOTHYROXINE 88 MCG TABLET PO SCH (09:12)
[2020-10-07] MEDS: LEVOFLOXACIN INJ 750 MG in PREMIX 1 EACH IV SCH (13:30)
[2020-10-07] MEDS ORDERED: MORPHINE 4 MG/1 ML VIAL IV ONE (15:00)
[2020-10-07] MEDS: MORPHINE 4 MG/1 ML VIAL IV PRN (15:02)
[2020-10-07] MEDS ORDERED: ROCURONIUM 100 MG/10 ML VIAL IV ONE ×3 (15:07→15:08)
[2020-10-07] MEDS ORDERED: METOPROLOL TARTRATE 5 MG/5 ML VIAL IV ONE ×2 (15:10→15:13)
[2020-10-07] MEDS: INSULIN GLARGINE 100 UNIT/ML SUBCUT SCH (20:43)
[2020-10-07] MEDS: ASPIRIN CHEW 81 MG TABLET PO SCH (20:43)
[2020-10-08] MEDS: INSULIN LISPRO 100 UNIT/ML SUBCUT SCH ×4 (00:22→17:52)
[2020-10-08] MEDS: AMPICILLIN INJ 1,000 MG in SODIUM CHLORIDE 0.9% 100 ML IV SCH ×2 (04:18→08:50)
[2020-10-08] MEDS: methylPREDNISolone SOD SUC 40 MG/1 ML VIAL IV SCH ×2 (04:18→11:40)
[2020-10-08 05:01] LABS: Allen Test Positive; Pt O2 Delivery Device Ventilator
[2020-10-08 05:05] LABS: ABG Base Excess 6.5 MMOL/L (-2.5-2.5); ABG HCO3 30.1 MMOL/L (20-26); ABG PCO2 47.6 MM HG (35-48); ABG PH 7.436 (7.35-7.45); ABG PO2 59.7 MM HG (80-95); ABG TCO2 27.6 MMOL/L (23-27)
[2020-10-08 05:10] LABS: Basophils # 0.1 10*3/uL (0.0-0.2); Basophils % 0.2 % (0.0-0.8); Eosinophils % 0.1 % (0.00-10.9); Hematocrit 38.4 VOL% (35.7-47.0); Hemoglobin 12.4 GM/DL (12.0-16.0); Immature Granulocytes % 1.6 %; Immature Granulocytes Absolute 0.56 #; Lymphocytes # 1.3 10*3/uL (1.4-4.0); Lymphocytes % 3.7 % (21.3-54.2); Mean Corpuscular HGB Conc 32.3 GM/DL (32-36); Mean Corpuscular Volume 78.5 FL (87-102); Mean Platelet Volume 11.3 FL (9.6-12.0); Monocytes % 1.7 % (1.7-12.7); Neutrophils % 92.7 % (38.7-73.9); Platelet Count 132 T/CUMM (130-400); Red Blood Count 4.89 MC/CUMM (3.8-5.5); Red Cell Distribution Width 16.5 % (9.3-17.3)
[2020-10-08 05:34] LABS: Band Neutrophils 3 % (0-10); Hypochromasia 1+; Lymphocytes 3 % (20-55); Segmented Neutrophils 93 % (50-85); Total Cells Counted 100
[2020-10-08 05:35] LABS: Microcytosis 1+
[2020-10-08 05:55] LABS: Albumin 2.1 G/DL (3.4-5.0); Bilirubin,Total 3.1 MG/DL (0.2-1.0); Calcium 7.8 MG/DL (8.5-10.1); Osmolality,Calculated 287.8 MOS/KG (273-304); Potassium 3.3 MMOL/L (3.5-5.1); Total Protein 5.7 G/DL (6.4-8.3)
[2020-10-08] MEDS: LOSARTAN 50 MG TABLET PO SCH (08:00)
[2020-10-08] MEDS: GABAPENTIN 300 MG CAPSULE PER TUBE SCH ×2 (08:01→20:32)
[2020-10-08] MEDS: CHOLECALCIFEROL 1,000 UNIT TABLET PO SCH (08:01)
[2020-10-08] MEDS: ZINC GLUCONATE 50 MG TABLET PO SCH (08:01)
[2020-10-08] MEDS: ASCORBIC ACID 500 MG TABLET PO SCH ×2 (08:01→20:32)
[2020-10-08] MEDS: FUROSEMIDE 40 MG/4 ML VIAL IV SCH (08:02)
[2020-10-08] MEDS: LEVOTHYROXINE 88 MCG TABLET PO SCH (08:02)
[2020-10-08] MEDS: FAMOTIDINE 20 MG/2 ML VIAL IV SCH ×2 (08:02→20:32)
[2020-10-08] MEDS: MENTHOL/ZINC OXIDE OINT 71 GM JAR TOP SCH ×2 (08:50→20:32)
[2020-10-08] MEDS: ENOXAPARIN 60 MG/0.6 ML SYRINGE SUBCUT SCH (11:40)
[2020-10-08] MEDS: POTASSIUM CHLORIDE 20 MEQ TABLET PO PRN ×3 (11:41→17:55)
[2020-10-08] MEDS: LEVOFLOXACIN INJ 750 MG in PREMIX 1 EACH IV SCH (12:32)
[2020-10-08] MEDS: ACETAMINOPHEN 325 MG TABLET PO PRN ×2 (12:36→20:32)
[2020-10-08] MEDS ORDERED: cefTRIAXone 1,000 MG in SODIUM CHLORIDE 0.9% 100 ML IV SCH (15:00)
[2020-10-08] MEDS: AMPICILLIN/SULBACTAM 3,000 MG in SODIUM CHLORIDE 0.9% 100 ML IV SCH ×2 (15:52→21:31)
[2020-10-08] MEDS: INSULIN GLARGINE 100 UNIT/ML SUBCUT SCH (20:32)
[2020-10-08] MEDS: ASPIRIN CHEW 81 MG TABLET PO SCH (20:32)
[2020-10-09] MEDS: ENOXAPARIN 60 MG/0.6 ML SYRINGE SUBCUT SCH ×2 (00:15→10:02)
[2020-10-09] MEDS: methylPREDNISolone SOD SUC 40 MG/1 ML VIAL IV SCH ×2 (00:35→12:25)
[2020-10-09] MEDS: INSULIN LISPRO 100 UNIT/ML SUBCUT SCH ×4 (00:36→17:36)
[2020-10-09] MEDS ORDERED: NOREPINEPHRINE 4 MG/4 ML VIAL IV ONE (02:33)
[2020-10-09] MEDS: AMPICILLIN/SULBACTAM 3,000 MG in SODIUM CHLORIDE 0.9% 100 ML IV SCH ×2 (02:45→09:35)
[2020-10-09] MEDS: NOREPINEPHRINE 8 MG in SODIUM CHLORIDE 0.9% 242 ML IV PRN ×2 (02:46→20:43)
[2020-10-09 03:23] LABS: ABG Base Excess 8.2 MMOL/L (-2.5-2.5); ABG Oxygen Saturation 96.5 % (95-100); ABG PCO2 46.3 MM HG (35-48); ABG PH 7.463 (7.35-7.45); ABG PO2 80.4 MM HG (80-95); ABG TCO2 29.7 MMOL/L (23-27); Allen Test Positive; Pt O2 Delivery Device Ventilator
[2020-10-09 04:22] LABS: Basophils # 0.1 10*3/uL (0.0-0.2); Basophils % 0.1 % (0.0-0.8); Eosinophils % 0.1 % (0.00-10.9); Hemoglobin 10.6 GM/DL (12.0-16.0); Immature Granulocytes % 2.7 %; Immature Granulocytes Absolute 0.94 #; Lymphocytes # 0.7 10*3/uL (1.4-4.0); Lymphocytes % 2.1 % (21.3-54.2); Mean Corpuscular HGB Conc 32.1 GM/DL (32-36); Mean Corpuscular Volume 77.6 FL (87-102); Monocytes % 6.1 % (1.7-12.7); Neutrophils % 88.9 % (38.7-73.9); Red Blood Count 4.25 MC/CUMM (3.8-5.5); Red Cell Distribution Width 16.6 % (9.3-17.3); White Blood Count 34.4 T/CUMM (4-12)
[2020-10-09 04:51] LABS: Albumin 1.7 G/DL (3.4-5.0); Bilirubin,Total 2.4 MG/DL (0.2-1.0); Calcium 7.8 MG/DL (8.5-10.1); Osmolality,Calculated 283.8 MOS/KG (273-304); Potassium 3.9 MMOL/L (3.5-5.1); Total Protein 4.7 G/DL (6.4-8.3)
[2020-10-09 07:01] LABS: Platelet Count 47 T/CUMM (130-400)
[2020-10-09 07:26] LABS: Hypochromasia 1+; Lymphocytes 1 % (20-55); Microcytosis 1+; Platelet Estimate Decreased; Segmented Neutrophils 92 % (50-85); Total Cells Counted 100
[2020-10-09] MEDS ORDERED: fentaNYL 12 MCG/HR PATCH TRANSDERM SCH (09:00)
[2020-10-09] MEDS: CHOLECALCIFEROL 1,000 UNIT TABLET PO SCH (09:35)
[2020-10-09] MEDS: FUROSEMIDE 40 MG/4 ML VIAL IV SCH (09:35)
[2020-10-09] MEDS: MENTHOL/ZINC OXIDE OINT 71 GM JAR TOP SCH ×2 (09:35→21:22)
[2020-10-09] MEDS: ZINC GLUCONATE 50 MG TABLET PO SCH (09:35)
[2020-10-09] MEDS: LOSARTAN 25 MG TABLET PO SCH ×2 (09:35)
[2020-10-09] MEDS: ASCORBIC ACID 500 MG TABLET PO SCH ×2 (09:35→20:18)
[2020-10-09] MEDS: GABAPENTIN 300 MG CAPSULE PER TUBE SCH ×2 (09:35→20:18)
[2020-10-09] MEDS: LEVOTHYROXINE 88 MCG TABLET PO SCH (09:35)
[2020-10-09] MEDS: FAMOTIDINE 20 MG/2 ML VIAL IV SCH ×2 (09:35→20:20)
[2020-10-09] MEDS: POTASSIUM CHLORIDE 20 MEQ TABLET PO PRN (09:35)
[2020-10-09] MEDS: ACETAMINOPHEN 325 MG TABLET PO PRN (10:20)
[2020-10-09] MEDS: MIDAZOLAM 100 MG in SODIUM CHLORIDE 0.9% 80 ML IV PRN ×2 (12:25→21:43)
[2020-10-09] MEDS: IBUPROFEN 100 MG/5 ML UDCUP PO PRN ×2 (12:56→20:19)
[2020-10-09] MEDS: METOPROLOL TARTRATE 25 MG TABLET PO SCH ×2 (14:35→20:17)
[2020-10-09] MEDS: AMPICILLIN INJ 1,000 MG in SODIUM CHLORIDE 0.9% 100 ML IV SCH ×2 (14:38→21:22)
[2020-10-09] MEDS ORDERED: METOPROLOL TARTRATE 5 MG/5 ML VIAL IV ONE (14:44)
[2020-10-09] MEDS: GENTAMICIN INJ 600 MG in SODIUM CHLORIDE 0.9% 100 ML IV SCH (15:00)
[2020-10-09] MEDS: ASPIRIN CHEW 81 MG TABLET PO SCH (20:18)
[2020-10-09] MEDS: INSULIN GLARGINE 100 UNIT/ML SUBCUT SCH (20:19)
[2020-10-10] MEDS: methylPREDNISolone SOD SUC 40 MG/1 ML VIAL IV SCH ×2 (00:32→12:37)
[2020-10-10] MEDS: INSULIN LISPRO 100 UNIT/ML SUBCUT SCH ×5 (00:32→20:07)
[2020-10-10] MEDS: AMPICILLIN INJ 1,000 MG in SODIUM CHLORIDE 0.9% 100 ML IV SCH ×4 (01:35→20:11)
[2020-10-10 03:52] LABS: ABG Base Excess 8.9 MMOL/L (-2.5-2.5); ABG HCO3 32.6 MMOL/L (20-26); ABG Oxygen Saturation 98.3 % (95-100); ABG PCO2 52.4 MM HG (35-48); ABG PH 7.431 (7.35-7.45); ABG TCO2 30.9 MMOL/L (23-27)
[2020-10-10 05:16] LABS: Basophils # 0.1 10*3/uL (0.0-0.2); Basophils % 0.2 % (0.0-0.8); Hemoglobin 11.7 GM/DL (12.0-16.0); Immature Granulocytes % 2.8 %; Immature Granulocytes Absolute 1.18 #; Lymphocytes # 1.1 10*3/uL (1.4-4.0); Lymphocytes % 2.5 % (21.3-54.2); Mean Corpuscular HGB Conc 32.5 GM/DL (32-36); Mean Corpuscular Volume 77.1 FL (87-102); Monocytes % 6.1 % (1.7-12.7); Neutrophils % 88.4 % (38.7-73.9); Platelet Count 40 T/CUMM (130-400); Red Blood Count 4.67 MC/CUMM (3.8-5.5); Red Cell Distribution Width 16.9 % (9.3-17.3)
[2020-10-10 05:28] LABS: White Blood Count 41.5 T/CUMM (4-12)
[2020-10-10 05:43] LABS: Albumin 1.8 G/DL (3.4-5.0); Bilirubin,Total 1.3 MG/DL (0.2-1.0); Calcium 8.1 MG/DL (8.5-10.1); Ferritin 1569.3 ng/ml (8-252); Osmolality,Calculated 287.8 MOS/KG (273-304); Potassium 4.2 MMOL/L (3.5-5.1); Total Protein 5.5 G/DL (6.4-8.3)
[2020-10-10] MEDS: MIDAZOLAM 100 MG in SODIUM CHLORIDE 0.9% 80 ML IV PRN ×3 (06:13→23:20)
[2020-10-10 06:40] LABS: Band Neutrophils 1 % (0-10); Lymphocytes 3 % (20-55); Segmented Neutrophils 95 % (50-85); Total Cells Counted 100
[2020-10-10 06:41] LABS: Hypochromasia 1+; Microcytosis 1+; Platelet Estimate Decreased
[2020-10-10] MEDS: NOREPINEPHRINE 8 MG in SODIUM CHLORIDE 0.9% 242 ML IV PRN ×3 (07:50→21:30)
[2020-10-10] MEDS: MENTHOL/ZINC OXIDE OINT 71 GM JAR TOP SCH ×2 (08:41→20:11)
[2020-10-10] MEDS: METOPROLOL TARTRATE 25 MG TABLET PO SCH ×2 (08:42→10:00)
[2020-10-10] MEDS: FUROSEMIDE 40 MG/4 ML VIAL IV SCH (08:42)
[2020-10-10] MEDS: FAMOTIDINE 20 MG/2 ML VIAL IV SCH ×2 (08:43→20:06)
[2020-10-10] MEDS: GABAPENTIN 300 MG CAPSULE PER TUBE SCH ×2 (08:43→20:09)
[2020-10-10] MEDS: CHOLECALCIFEROL 1,000 UNIT TABLET PO SCH (08:44)
[2020-10-10] MEDS: ZINC GLUCONATE 50 MG TABLET PO SCH (08:44)
[2020-10-10] MEDS: LEVOTHYROXINE 88 MCG TABLET PO SCH (08:44)
[2020-10-10] MEDS: ASCORBIC ACID 500 MG TABLET PO SCH ×2 (08:44→20:09)
[2020-10-10] MEDS: FLUCONAZOLE INJ 400 MG in PREMIX 1 EACH IV SCH (12:39)
[2020-10-10] MEDS: GENTAMICIN INJ 600 MG in SODIUM CHLORIDE 0.9% 100 ML IV SCH (14:55)
[2020-10-10 20:06] LABS: HIT Interpretation Negative (Negative)
[2020-10-10] MEDS: INSULIN GLARGINE 100 UNIT/ML SUBCUT SCH (20:06)
[2020-10-10] MEDS: IBUPROFEN 100 MG/5 ML UDCUP PO PRN (20:08)
[2020-10-10] MEDS: ASPIRIN CHEW 81 MG TABLET PO SCH (20:09)
[2020-10-11] MEDS: methylPREDNISolone SOD SUC 40 MG/1 ML VIAL IV SCH ×2 (00:34→12:45)
[2020-10-11] MEDS: INSULIN LISPRO 100 UNIT/ML SUBCUT SCH ×6 (01:02→20:59)
[2020-10-11] MEDS ORDERED: PHENTOLAMINE 5 MG VIAL INFILTRAT ONE (01:30)
[2020-10-11] MEDS: AMPICILLIN INJ 1,000 MG in SODIUM CHLORIDE 0.9% 100 ML IV SCH ×4 (02:01→21:03)
[2020-10-11] MEDS: GENTAMICIN INJ 600 MG in SODIUM CHLORIDE 0.9% 100 ML IV SCH (02:34)
[2020-10-11 04:49] LABS: ABG Base Excess 8.1 MMOL/L (-2.5-2.5); ABG HCO3 33.8 MMOL/L (20-26); ABG Oxygen Saturation 97.3 % (95-100); ABG PCO2 52.5 MM HG (35-48); ABG PH 7.426 (7.35-7.45); ABG PO2 100.3 MM HG (80-95); ABG TCO2 35.4 MMOL/L (23-27); Allen Test Positive; Pt O2 Delivery Device Ventilator
[2020-10-11 05:02] LABS: Albumin 1.6 G/DL (3.4-5.0); Bilirubin,Total 1.1 MG/DL (0.2-1.0); Calcium 7.7 MG/DL (8.5-10.1); Osmolality,Calculated 287.5 MOS/KG (273-304); Potassium 3.9 MMOL/L (3.5-5.1); Total Protein 4.8 G/DL (6.4-8.3)
[2020-10-11 05:08] LABS: Basophils % 0.2 % (0.0-0.8); Eosinophils # 0.1 10*3/uL (0.0-0.87); Eosinophils % 0.3 % (0.00-10.9); Hematocrit 31.3 VOL% (35.7-47.0); Immature Granulocytes % 1.9 %; Immature Granulocytes Absolute 0.42 #; Lymphocytes # 1.2 10*3/uL (1.4-4.0); Lymphocytes % 5.4 % (21.3-54.2); Mean Corpuscular HGB Conc 31.9 GM/DL (32-36); Mean Corpuscular Volume 78.8 FL (87-102); Mean Platelet Volume 12.8 FL (9.6-12.0); Monocytes % 6.9 % (1.7-12.7); Neutrophils % 85.3 % (38.7-73.9); Red Blood Count 3.97 MC/CUMM (3.8-5.5); Red Cell Distribution Width 16.7 % (9.3-17.3); White Blood Count 21.8 T/CUMM (4-12)
[2020-10-11 05:09] LABS: Platelet Count 38 T/CUMM (130-400)
[2020-10-11 06:13] LABS: Band Neutrophils 1 % (0-10); Lymphocytes 6 % (20-55); Platelet Estimate Decreased; Segmented Neutrophils 90 % (50-85); Total Cells Counted 100
[2020-10-11 06:14] LABS: Microcytosis 2+; Target Cells Few
[2020-10-11 06:15] LABS: Hypochromasia 1+; Polychromasia Slight
[2020-10-11] MEDS: GABAPENTIN 300 MG CAPSULE PER TUBE SCH ×2 (08:04→20:59)
[2020-10-11] MEDS: MENTHOL/ZINC OXIDE OINT 71 GM JAR TOP SCH ×2 (08:04→21:03)
[2020-10-11] MEDS: ASCORBIC ACID 500 MG TABLET PO SCH ×2 (08:05→20:59)
[2020-10-11] MEDS: CHOLECALCIFEROL 1,000 UNIT TABLET PO SCH (08:05)
[2020-10-11] MEDS: LEVOTHYROXINE 88 MCG TABLET PO SCH (08:05)
[2020-10-11] MEDS: ZINC GLUCONATE 50 MG TABLET PO SCH (08:05)
[2020-10-11] MEDS: FAMOTIDINE 20 MG/2 ML VIAL IV SCH ×2 (08:06→20:59)
[2020-10-11] MEDS: MIDAZOLAM 100 MG in SODIUM CHLORIDE 0.9% 80 ML IV PRN ×2 (08:09→16:34)
[2020-10-11] MEDS: fentaNYL 25 MCG/HR PATCH TRANSDERM SCH (12:44)
[2020-10-11] MEDS: QUEtiapine 25 MG TABLET PO SCH ×2 (12:44→20:59)
[2020-10-11] MEDS: FLUCONAZOLE INJ 400 MG in PREMIX 1 EACH IV SCH (12:46)
[2020-10-11] MEDS ORDERED: SODIUM PHOSPHATE INJ 30 MMOL in SODIUM CHLORIDE 0.9% 250 ML IV ONE (13:00)
[2020-10-11 19:31] LABS: Albumin 1.7 G/DL (3.4-5.0); Bilirubin,Total 0.8 MG/DL (0.2-1.0); Calcium 7.7 MG/DL (8.5-10.1); Osmolality,Calculated 289.4 MOS/KG (273-304); Potassium 4.2 MMOL/L (3.5-5.1); Total Protein 4.7 G/DL (6.4-8.3)
[2020-10-11] MEDS: INSULIN GLARGINE 100 UNIT/ML SUBCUT SCH (21:00)
[2020-10-12] MEDS: methylPREDNISolone SOD SUC 40 MG/1 ML VIAL IV SCH ×2 (00:28→10:30)
[2020-10-12] MEDS: INSULIN LISPRO 100 UNIT/ML SUBCUT SCH ×6 (00:38→20:20)
[2020-10-12] MEDS: AMPICILLIN INJ 1,000 MG in SODIUM CHLORIDE 0.9% 100 ML IV SCH ×4 (01:44→20:20)
[2020-10-12] MEDS: MIDAZOLAM 100 MG in SODIUM CHLORIDE 0.9% 80 ML IV PRN (01:45)
[2020-10-12 03:47] LABS: ABG HCO3 33.7 MMOL/L (20-26); ABG Oxygen Saturation 98.3 % (95-100); ABG PCO2 54.7 MM HG (35-48); ABG PH 7.427 (7.35-7.45); ABG TCO2 32.9 MMOL/L (23-27); Allen Test Positive; Pt O2 Delivery Device Ventilator
[2020-10-12 04:24] LABS: Basophils % 0.1 % (0.0-0.8); Eosinophils # 0.1 10*3/uL (0.0-0.87); Eosinophils % 0.5 % (0.00-10.9); Hematocrit 29.4 VOL% (35.7-47.0); Hemoglobin 9.3 GM/DL (12.0-16.0); Immature Granulocytes % 0.9 %; Immature Granulocytes Absolute 0.21 #; Lymphocytes # 0.9 10*3/uL (1.4-4.0); Lymphocytes % 3.9 % (21.3-54.2); Mean Corpuscular HGB Conc 31.6 GM/DL (32-36); Mean Corpuscular Volume 78.8 FL (87-102); Mean Platelet Volume 12.7 FL (9.6-12.0); Monocytes % 7.1 % (1.7-12.7); Neutrophils % 87.5 % (38.7-73.9); Platelet Count 56 T/CUMM (130-400); Red Blood Count 3.73 MC/CUMM (3.8-5.5); Red Cell Distribution Width 16.7 % (9.3-17.3); White Blood Count 23.3 T/CUMM (4-12)
[2020-10-12 04:31] LABS: Calcium 7.6 MG/DL (8.5-10.1); Osmolality,Calculated 286.4 MOS/KG (273-304); Potassium 4.3 MMOL/L (3.5-5.1)
[2020-10-12 04:33] LABS: PT Patient Result 11.2 SECS (9.8-11.9); Partial Thromboplastin Time 23.1 SECS (23.9-33.8)
[2020-10-12 06:14] LABS: Band Neutrophils 12 % (0-10); Lymphocytes 5 % (20-55); Platelet Estimate Decreased; Segmented Neutrophils 75 % (50-85); Smudge Cells Few; Total Cells Counted 100
[2020-10-12 06:15] LABS: Anisocytosis 2+
[2020-10-12] MEDS ORDERED: DEXMEDETOMIDINE 200 MCG in SODIUM CHLORIDE 0.9% 48 ML IV PRN (07:11)
[2020-10-12] MEDS: LEVOTHYROXINE 88 MCG TABLET PO SCH (08:52)
[2020-10-12] MEDS: ZINC GLUCONATE 50 MG TABLET PO SCH (08:52)
[2020-10-12] MEDS: ASCORBIC ACID 500 MG TABLET PO SCH ×2 (08:52→20:20)
[2020-10-12] MEDS: QUEtiapine 25 MG TABLET PO SCH ×2 (08:52→20:20)
[2020-10-12] MEDS: GABAPENTIN 300 MG CAPSULE PER TUBE SCH ×2 (08:52→20:20)
[2020-10-12] MEDS: CHOLECALCIFEROL 1,000 UNIT TABLET PO SCH (08:52)
[2020-10-12] MEDS: MENTHOL/ZINC OXIDE OINT 71 GM JAR TOP SCH ×2 (08:54→20:20)
[2020-10-12] MEDS: FAMOTIDINE 20 MG/2 ML VIAL IV SCH ×2 (09:34→20:20)
[2020-10-12] MEDS ORDERED: DEXMEDETOMIDINE 400 MCG in SODIUM CHLORIDE 0.9% 96 ML IV PRN (11:30)
[2020-10-12] MEDS: FLUCONAZOLE INJ 400 MG in PREMIX 1 EACH IV SCH (11:38)
[2020-10-12] MEDS: GENTAMICIN INJ 600 MG in SODIUM CHLORIDE 0.9% 100 ML IV SCH (14:45)
[2020-10-12] MEDS: INSULIN GLARGINE 100 UNIT/ML SUBCUT SCH (20:20)
[2020-10-13] MEDS: methylPREDNISolone SOD SUC 40 MG/1 ML VIAL IV SCH ×2 (00:24→12:38)
[2020-10-13] MEDS: INSULIN LISPRO 100 UNIT/ML SUBCUT SCH ×6 (00:24→21:04)
[2020-10-13] MEDS: AMPICILLIN INJ 1,000 MG in SODIUM CHLORIDE 0.9% 100 ML IV SCH ×4 (01:44→21:04)
[2020-10-13 04:13] LABS: Allen Test Positive; Pt O2 Delivery Device Ventilator
[2020-10-13 04:27] LABS: ABG HCO3 35.3 MMOL/L (20-26); ABG PH 7.503 (7.35-7.45); ABG PO2 63.1 MM HG (80-95); ABG TCO2 36.7 MMOL/L (23-27)
[2020-10-13 04:28] LABS: ABG Oxygen Saturation 92.2 % (95-100)
[2020-10-13 04:58] LABS: Basophils % 0.1 % (0.0-0.8); Eosinophils # 0.1 10*3/uL (0.0-0.87); Eosinophils % 0.5 % (0.00-10.9); Hematocrit 29.7 VOL% (35.7-47.0); Hemoglobin 9.6 GM/DL (12.0-16.0); Immature Granulocytes % 1.4 %; Immature Granulocytes Absolute 0.36 #; Lymphocytes % 3.8 % (21.3-54.2); Mean Corpuscular HGB Conc 32.3 GM/DL (32-36); Mean Corpuscular Volume 78.2 FL (87-102); Mean Platelet Volume 12.4 FL (9.6-12.0); Monocytes % 5.9 % (1.7-12.7); Neutrophils % 88.3 % (38.7-73.9); Platelet Count 88 T/CUMM (130-400); Red Cell Distribution Width 16.6 % (9.3-17.3); White Blood Count 25.3 T/CUMM (4-12)
[2020-10-13 05:19] LABS: % Iron Saturation 17.8 % (18-50); Eosinophils 2 % (0-10); Hypochromasia 1+; Lymphocytes 3 % (20-55); Microcytosis 1+; Platelet Estimate Decreased; Segmented Neutrophils 90 % (50-85); Total Cells Counted 100
[2020-10-13 05:20] LABS: Albumin 1.8 G/DL (3.4-5.0); Bilirubin,Total 0.8 MG/DL (0.2-1.0); Calcium 7.6 MG/DL (8.5-10.1); Osmolality,Calculated 281.7 MOS/KG (273-304); Potassium 4.3 MMOL/L (3.5-5.1); Total Protein 4.8 G/DL (6.4-8.3)
[2020-10-13] MEDS: ZINC GLUCONATE 50 MG TABLET PO SCH (08:11)
[2020-10-13] MEDS: CHOLECALCIFEROL 1,000 UNIT TABLET PO SCH (08:12)
[2020-10-13] MEDS: ASCORBIC ACID 500 MG TABLET PO SCH ×2 (08:12→21:05)
[2020-10-13] MEDS: MENTHOL/ZINC OXIDE OINT 71 GM JAR TOP SCH ×2 (08:12→21:04)
[2020-10-13] MEDS: GABAPENTIN 300 MG CAPSULE PER TUBE SCH ×2 (08:12→21:04)
[2020-10-13] MEDS: LEVOTHYROXINE 88 MCG TABLET PO SCH (08:12)
[2020-10-13] MEDS: QUEtiapine 25 MG TABLET PO SCH ×2 (08:12→21:04)
[2020-10-13] MEDS: FAMOTIDINE 20 MG/2 ML VIAL IV SCH ×2 (09:21→21:04)
[2020-10-13] MEDS: FLUCONAZOLE INJ 400 MG in PREMIX 1 EACH IV SCH (12:38)
[2020-10-13] MEDS ORDERED: hydrALAZINE 20 MG/1 ML VIAL IV PRN (14:03)
[2020-10-13 15:25] LABS: ABG Base Excess 10.4 MMOL/L (-2.5-2.5); ABG HCO3 34.1 MMOL/L (20-26); ABG PCO2 42.6 MM HG (35-48); ABG PH 7.517 (7.35-7.45); ABG PO2 61.8 MM HG (80-95); ABG TCO2 30.9 MMOL/L (23-27)
[2020-10-13] MEDS: INSULIN GLARGINE 100 UNIT/ML SUBCUT SCH (21:04)
[2020-10-13] MEDS: IBUPROFEN 100 MG/5 ML UDCUP PO PRN (21:33)
[2020-10-14] MEDS: INSULIN LISPRO 100 UNIT/ML SUBCUT SCH ×6 (00:16→20:45)
[2020-10-14] MEDS: methylPREDNISolone SOD SUC 40 MG/1 ML VIAL IV SCH ×3 (00:19→20:45)
[2020-10-14] MEDS: AMPICILLIN INJ 1,000 MG in SODIUM CHLORIDE 0.9% 100 ML IV SCH ×2 (01:42→08:18)
[2020-10-14 03:18] LABS: ABG Base Excess 11.2 MMOL/L (-2.5-2.5); ABG HCO3 35.9 MMOL/L (20-26); ABG Oxygen Saturation 97.4 % (95-100); ABG PCO2 48.8 MM HG (35-48); ABG PH 7.485 (7.35-7.45); ABG PO2 106.2 MM HG (80-95); ABG TCO2 37.4 MMOL/L (23-27); Allen Test Positive; Pt O2 Delivery Device Ventilator
[2020-10-14] MEDS: GENTAMICIN INJ 600 MG in SODIUM CHLORIDE 0.9% 100 ML IV SCH (03:27)
[2020-10-14 04:35] LABS: Basophils % 0.2 % (0.0-0.8); Eosinophils # 0.5 10*3/uL (0.0-0.87); Eosinophils % 1.9 % (0.00-10.9); Hematocrit 27.5 VOL% (35.7-47.0); Hemoglobin 8.9 GM/DL (12.0-16.0); Immature Granulocytes % 3.4 %; Lymphocytes # 1.4 10*3/uL (1.4-4.0); Lymphocytes % 5.9 % (21.3-54.2); Mean Corpuscular HGB Conc 32.4 GM/DL (32-36); Mean Corpuscular Volume 77.9 FL (87-102); Mean Platelet Volume 11.2 FL (9.6-12.0); Neutrophils % 83.6 % (38.7-73.9); Platelet Count 120 T/CUMM (130-400); Red Blood Count 3.53 MC/CUMM (3.8-5.5); Red Cell Distribution Width 16.6 % (9.3-17.3); White Blood Count 23.6 T/CUMM (4-12)
[2020-10-14 04:50] LABS: Calcium 7.8 MG/DL (8.5-10.1); Potassium 4.3 MMOL/L (3.5-5.1)
[2020-10-14 05:02] LABS: Eosinophils 1 % (0-10); Hypochromasia 1+; Lymphocytes 7 % (20-55); Microcytosis 1+; Segmented Neutrophils 86 % (50-85); Total Cells Counted 100
[2020-10-14] MEDS: fentaNYL 25 MCG/HR PATCH TRANSDERM SCH (08:20)
[2020-10-14] MEDS: MENTHOL/ZINC OXIDE OINT 71 GM JAR TOP SCH ×2 (08:21→20:45)
[2020-10-14] MEDS: QUEtiapine 25 MG TABLET PO SCH (08:22)
[2020-10-14] MEDS ORDERED: MIDAZOLAM 2 MG/2 ML VIAL ONE (09:25)
[2020-10-14] MEDS ORDERED: fentaNYL 100 MCG/2 ML VIAL ONE (10:13)
[2020-10-14] MEDS ORDERED: SEVOFLURANE 1 UNIT/15 MINUTE INH ONE (10:25)
[2020-10-14] MEDS: ZINC GLUCONATE 50 MG TABLET PO SCH (11:08)
[2020-10-14] MEDS: ASCORBIC ACID 500 MG TABLET PO SCH ×2 (11:08→20:45)
[2020-10-14] MEDS: CHOLECALCIFEROL 1,000 UNIT TABLET PO SCH (11:08)
[2020-10-14] MEDS: GABAPENTIN 300 MG CAPSULE PER TUBE SCH ×2 (11:09→20:45)
[2020-10-14] MEDS: LEVOTHYROXINE 88 MCG TABLET PO SCH (11:09)
[2020-10-14] MEDS: FAMOTIDINE 20 MG/2 ML VIAL IV SCH ×2 (11:27→20:45)
[2020-10-14] MEDS: FLUCONAZOLE INJ 400 MG in PREMIX 1 EACH IV SCH (11:33)
[2020-10-14] MEDS ORDERED: ceFAZolin 1,000 MG in SYRINGE 1 EACH IV SCH (12:00)
[2020-10-14] MEDS: VANCOMYCIN INJ 2,000 MG in SODIUM CHLORIDE 0.9% 500 ML IV SCH (14:18)
[2020-10-14] MEDS: LEVOFLOXACIN INJ 750 MG in PREMIX 1 EACH IV SCH (18:19)
[2020-10-14] MEDS: INSULIN GLARGINE 100 UNIT/ML SUBCUT SCH (20:45)
[2020-10-15] MEDS: INSULIN LISPRO 100 UNIT/ML SUBCUT SCH ×6 (00:23→21:45)
[2020-10-15] MEDS: VANCOMYCIN INJ 2,000 MG in SODIUM CHLORIDE 0.9% 500 ML IV SCH ×2 (01:51→21:47)
[2020-10-15 02:50] LABS: ABG Base Excess 8.7 MMOL/L (-2.5-2.5); ABG HCO3 32.7 MMOL/L (20-26); ABG Oxygen Saturation 97.7 % (95-100); ABG PCO2 43.1 MM HG (35-48); ABG PH 7.498 (7.35-7.45); ABG PO2 107.3 MM HG (80-95); Allen Test Positive; Pt O2 Delivery Device Ventilator
[2020-10-15 04:49] LABS: Basophils % 0.2 % (0.0-0.8); Eosinophils # 0.1 10*3/uL (0.0-0.87); Eosinophils % 0.4 % (0.00-10.9); Hematocrit 27.2 VOL% (35.7-47.0); Hemoglobin 8.7 GM/DL (12.0-16.0); Immature Granulocytes % 2.7 %; Immature Granulocytes Absolute 0.53 #; Lymphocytes # 0.8 10*3/uL (1.4-4.0); Lymphocytes % 3.9 % (21.3-54.2); Mean Corpuscular Volume 79.1 FL (87-102); Mean Platelet Volume 11.3 FL (9.6-12.0); Neutrophils % 88.8 % (38.7-73.9); Platelet Count 144 T/CUMM (130-400); Red Blood Count 3.44 MC/CUMM (3.8-5.5); Red Cell Distribution Width 16.6 % (9.3-17.3); White Blood Count 19.7 T/CUMM (4-12)
[2020-10-15 05:10] LABS: Calcium 7.8 MG/DL (8.5-10.1); Osmolality,Calculated 286.3 MOS/KG (273-304)
[2020-10-15] MEDS: methylPREDNISolone SOD SUC 40 MG/1 ML VIAL IV SCH ×3 (05:20→21:06)
[2020-10-15 05:29] LABS: Band Neutrophils 2 % (0-10); Lymphocytes 4 % (20-55); Platelet Estimate Decreased; Segmented Neutrophils 89 % (50-85); Total Cells Counted 100
[2020-10-15 05:30] LABS: Anisocytosis Slight; Macrocytosis Slight; Polychromasia Few
[2020-10-15] MEDS: ASCORBIC ACID 500 MG TABLET PO SCH ×2 (08:40→21:07)
[2020-10-15] MEDS: ZINC GLUCONATE 50 MG TABLET PO SCH (08:40)
[2020-10-15] MEDS: CHOLECALCIFEROL 1,000 UNIT TABLET PO SCH (08:40)
[2020-10-15] MEDS: LEVOTHYROXINE 88 MCG TABLET PO SCH (08:40)
[2020-10-15] MEDS: GABAPENTIN 300 MG CAPSULE PER TUBE SCH ×2 (08:41→21:05)
[2020-10-15] MEDS: MENTHOL/ZINC OXIDE OINT 71 GM JAR TOP SCH ×2 (09:02→21:46)
[2020-10-15] MEDS: FAMOTIDINE 20 MG/2 ML VIAL IV SCH ×2 (09:02→21:05)
[2020-10-15] MEDS: LOSARTAN 25 MG TABLET PO SCH (09:02)
[2020-10-15] MEDS: FONDAPARINUX 2.5 MG/0.5 ML SYRINGE SUBCUT SCH (10:23)
[2020-10-15] MEDS: FLUCONAZOLE INJ 400 MG in PREMIX 1 EACH IV SCH (12:17)
[2020-10-15] MEDS: LEVOFLOXACIN INJ 750 MG in PREMIX 1 EACH IV SCH (18:21)
[2020-10-15] MEDS: INSULIN GLARGINE 100 UNIT/ML SUBCUT SCH (21:46)
[2020-10-16] MEDS: INSULIN LISPRO 100 UNIT/ML SUBCUT SCH ×6 (00:40→21:35)
[2020-10-16] MEDS: FAMOTIDINE 20 MG/2 ML VIAL IV SCH ×2 (02:13→08:40)
[2020-10-16 04:19] LABS: ABG Base Excess 5.3 MMOL/L (-2.5-2.5); ABG HCO3 29.2 MMOL/L (20-26); ABG Oxygen Saturation 98.7 % (95-100); ABG PCO2 46.2 MM HG (35-48); ABG PH 7.427 (7.35-7.45); Allen Test Positive; Pt O2 Delivery Device Ventilator
[2020-10-16 04:37] LABS: Basophils % 0.2 % (0.0-0.8); Eosinophils # 0.1 10*3/uL (0.0-0.87); Eosinophils % 0.5 % (0.00-10.9); Hematocrit 30.1 VOL% (35.7-47.0); Hemoglobin 9.6 GM/DL (12.0-16.0); Immature Granulocytes % 4.3 %; Immature Granulocytes Absolute 0.96 #; Lymphocytes # 0.9 10*3/uL (1.4-4.0); Lymphocytes % 3.9 % (21.3-54.2); Mean Corpuscular HGB Conc 31.9 GM/DL (32-36); Mean Corpuscular Volume 80.3 FL (87-102); Mean Platelet Volume 11.1 FL (9.6-12.0); Monocytes % 4.4 % (1.7-12.7); Neutrophils % 86.7 % (38.7-73.9); Platelet Count 205 T/CUMM (130-400); Red Blood Count 3.75 MC/CUMM (3.8-5.5); Red Cell Distribution Width 17.1 % (9.3-17.3); White Blood Count 22.1 T/CUMM (4-12)
[2020-10-16 04:57] LABS: Hypochromasia 1+; Lymphocytes 5 % (20-55); Microcytosis 1+; Platelet Estimate Adequate; Segmented Neutrophils 93 % (50-85); Total Cells Counted 100
[2020-10-16 05:24] LABS: Albumin 1.8 G/DL (3.4-5.0); Bilirubin,Total 0.9 MG/DL (0.2-1.0); Calcium 8.4 MG/DL (8.5-10.1); Osmolality,Calculated 294.7 MOS/KG (273-304); Total Protein 5.2 G/DL (6.4-8.3)
[2020-10-16] MEDS: methylPREDNISolone SOD SUC 40 MG/1 ML VIAL IV SCH ×3 (06:00→21:38)
[2020-10-16] MEDS: LEVOTHYROXINE 88 MCG TABLET PO SCH (08:39)
[2020-10-16] MEDS: CHOLECALCIFEROL 1,000 UNIT TABLET PO SCH (08:39)
[2020-10-16] MEDS: ASCORBIC ACID 500 MG TABLET PO SCH ×2 (08:39→21:40)
[2020-10-16] MEDS: GABAPENTIN 300 MG CAPSULE PER TUBE SCH ×2 (08:39→21:40)
[2020-10-16] MEDS: MENTHOL/ZINC OXIDE OINT 71 GM JAR TOP SCH ×2 (08:39→21:37)
[2020-10-16] MEDS: LOSARTAN 25 MG TABLET PO SCH (08:39)
[2020-10-16] MEDS: ZINC GLUCONATE 50 MG TABLET PO SCH (08:39)
[2020-10-16] MEDS ORDERED: SKIN HEALING OINT (AQUAPHOR) 50 GM TUBE TOP PRN (09:34)
[2020-10-16] MEDS: FONDAPARINUX 2.5 MG/0.5 ML SYRINGE SUBCUT SCH (10:57)
[2020-10-16] MEDS: FLUCONAZOLE INJ 400 MG in PREMIX 1 EACH IV SCH (12:36)
[2020-10-16] MEDS: VANCOMYCIN INJ 2,000 MG in SODIUM CHLORIDE 0.9% 500 ML IV SCH (15:04)
[2020-10-16] MEDS: LEVOFLOXACIN INJ 750 MG in PREMIX 1 EACH IV SCH (18:00)
[2020-10-16] MEDS: INSULIN GLARGINE 100 UNIT/ML SUBCUT SCH (21:35)
[2020-10-17] MEDS: INSULIN LISPRO 100 UNIT/ML SUBCUT SCH ×6 (00:20→21:25)
[2020-10-17 03:51] LABS: Allen Test Positive; Pt O2 Delivery Device Ventilator
[2020-10-17 03:52] LABS: ABG Base Excess 1.8 MMOL/L (-2.5-2.5); ABG HCO3 24.9 MMOL/L (20-26); ABG Oxygen Saturation 94.8 % (95-100); ABG PCO2 33.3 MM HG (35-48); ABG PH 7.491 (7.35-7.45); ABG PO2 74.9 MM HG (80-95); ABG TCO2 25.9 MMOL/L (23-27)
[2020-10-17] MEDS: methylPREDNISolone SOD SUC 40 MG/1 ML VIAL IV SCH ×3 (04:28→21:20)
[2020-10-17 04:57] LABS: Basophils # 0.1 10*3/uL (0.0-0.2); Basophils % 0.3 % (0.0-0.8); Eosinophils % 0.1 % (0.00-10.9); Hematocrit 31.8 VOL% (35.7-47.0); Hemoglobin 10.2 GM/DL (12.0-16.0); Immature Granulocytes % 3.9 %; Immature Granulocytes Absolute 1.03 #; Lymphocytes % 3.6 % (21.3-54.2); Mean Corpuscular HGB Conc 32.1 GM/DL (32-36); Mean Corpuscular Volume 78.1 FL (87-102); Monocytes % 4.3 % (1.7-12.7); NRBC # 0.02 10*3/uL; Neutrophils % 87.8 % (38.7-73.9); Platelet Count 228 T/CUMM (130-400); Red Blood Count 4.07 MC/CUMM (3.8-5.5); Red Cell Distribution Width 17.4 % (9.3-17.3); White Blood Count 26.6 T/CUMM (4-12)
[2020-10-17 05:38] LABS: Hypochromasia 1+; Lymphocytes 3 % (20-55); Microcytosis 1+; Platelet Estimate Adequate; Segmented Neutrophils 96 % (50-85); Total Cells Counted 100
[2020-10-17] MEDS: LEVOTHYROXINE 88 MCG TABLET PO SCH (08:22)
[2020-10-17] MEDS: LOSARTAN 25 MG TABLET PO SCH (08:22)
[2020-10-17] MEDS: ASCORBIC ACID 500 MG TABLET PO SCH ×2 (08:22→21:22)
[2020-10-17] MEDS: ZINC GLUCONATE 50 MG TABLET PO SCH (08:22)
[2020-10-17] MEDS: GABAPENTIN 300 MG CAPSULE PER TUBE SCH ×2 (08:22→21:22)
[2020-10-17] MEDS: CHOLECALCIFEROL 1,000 UNIT TABLET PO SCH (08:23)
[2020-10-17] MEDS: fentaNYL 25 MCG/HR PATCH TRANSDERM SCH (08:24)
[2020-10-17] MEDS: FAMOTIDINE 20 MG/2 ML VIAL IV SCH ×2 (08:29→21:18)
[2020-10-17] MEDS: VANCOMYCIN INJ 2,000 MG in SODIUM CHLORIDE 0.9% 500 ML IV SCH (08:30)
[2020-10-17] MEDS: MENTHOL/ZINC OXIDE OINT 71 GM JAR TOP SCH ×2 (08:30→21:20)
[2020-10-17] MEDS: FONDAPARINUX 2.5 MG/0.5 ML SYRINGE SUBCUT SCH (09:02)
[2020-10-17 09:38] LABS: Albumin 2.2 G/DL (3.4-5.0); Bilirubin,Total 0.7 MG/DL (0.2-1.0); Calcium 8.4 MG/DL (8.5-10.1); Osmolality,Calculated 292.3 MOS/KG (273-304); Total Protein 5.5 G/DL (6.4-8.3)
[2020-10-17] MEDS: FLUCONAZOLE INJ 400 MG in PREMIX 1 EACH IV SCH (11:01)
[2020-10-17] MEDS: LEVOFLOXACIN INJ 750 MG in PREMIX 1 EACH IV SCH (17:41)
[2020-10-17] MEDS: INSULIN GLARGINE 100 UNIT/ML SUBCUT SCH (21:25)
[2020-10-18] MEDS: INSULIN LISPRO 100 UNIT/ML SUBCUT SCH ×6 (00:46→20:49)
[2020-10-18] MEDS: VANCOMYCIN INJ 2,000 MG in SODIUM CHLORIDE 0.9% 500 ML IV SCH ×2 (03:08→21:35)
[2020-10-18 04:27] LABS: Basophils % 0.2 % (0.0-0.8); Eosinophils # 0.1 10*3/uL (0.0-0.87); Eosinophils % 0.3 % (0.00-10.9); Hematocrit 29.7 VOL% (35.7-47.0); Hemoglobin 9.3 GM/DL (12.0-16.0); Immature Granulocytes % 4.2 %; Immature Granulocytes Absolute 0.99 #; Lymphocytes # 0.7 10*3/uL (1.4-4.0); Lymphocytes % 3.1 % (21.3-54.2); Mean Corpuscular HGB Conc 31.3 GM/DL (32-36); Mean Corpuscular Volume 79.8 FL (87-102); Mean Platelet Volume 10.7 FL (9.6-12.0); Monocytes % 4.1 % (1.7-12.7); Neutrophils % 88.1 % (38.7-73.9); Platelet Count 190 T/CUMM (130-400); Red Blood Count 3.72 MC/CUMM (3.8-5.5); Red Cell Distribution Width 18.2 % (9.3-17.3); White Blood Count 23.7 T/CUMM (4-12)
[2020-10-18 04:36] LABS: ABG Base Excess 4.9 MMOL/L (-2.5-2.5); ABG HCO3 28.8 MMOL/L (20-26); ABG Oxygen Saturation 96.8 % (95-100); ABG PCO2 42.7 MM HG (35-48); ABG PH 7.446 (7.35-7.45); ABG PO2 85.1 MM HG (80-95); ABG TCO2 26.1 MMOL/L (23-27)
[2020-10-18 04:51] LABS: Albumin 1.9 G/DL (3.4-5.0); Bilirubin,Total 0.6 MG/DL (0.2-1.0); Calcium 8.2 MG/DL (8.5-10.1); Osmolality,Calculated 291.1 MOS/KG (273-304); Total Protein 4.9 G/DL (6.4-8.3)
[2020-10-18 04:57] LABS: Hypochromasia 2+; Lymphocytes 3 % (20-55); Platelet Estimate Normal; Segmented Neutrophils 94 % (50-85); Total Cells Counted 100
[2020-10-18] MEDS: methylPREDNISolone SOD SUC 40 MG/1 ML VIAL IV SCH ×2 (05:39→20:07)
[2020-10-18] MEDS: GABAPENTIN 300 MG CAPSULE PER TUBE SCH ×2 (08:19→20:07)
[2020-10-18] MEDS: CHOLECALCIFEROL 1,000 UNIT TABLET PO SCH (08:19)
[2020-10-18] MEDS: LOSARTAN 25 MG TABLET PO SCH (08:19)
[2020-10-18] MEDS: ZINC GLUCONATE 50 MG TABLET PO SCH (08:19)
[2020-10-18] MEDS: ASCORBIC ACID 500 MG TABLET PO SCH ×2 (08:19→20:07)
[2020-10-18] MEDS: LEVOTHYROXINE 88 MCG TABLET PO SCH (08:19)
[2020-10-18] MEDS: FAMOTIDINE 20 MG/2 ML VIAL IV SCH ×2 (08:31→20:06)
[2020-10-18] MEDS: MENTHOL/ZINC OXIDE OINT 71 GM JAR TOP SCH ×2 (08:31→20:07)
[2020-10-18] MEDS: FONDAPARINUX 2.5 MG/0.5 ML SYRINGE SUBCUT SCH (10:36)
[2020-10-18] MEDS: FLUCONAZOLE INJ 400 MG in PREMIX 1 EACH IV SCH (16:25)
[2020-10-18] MEDS: LEVOFLOXACIN INJ 750 MG in PREMIX 1 EACH IV SCH (18:15)
[2020-10-18] MEDS: INSULIN GLARGINE 100 UNIT/ML SUBCUT SCH (20:06)
[2020-10-18] MEDS: MORPHINE 4 MG/1 ML VIAL IV PRN (20:53)
[2020-10-19] MEDS: INSULIN LISPRO 100 UNIT/ML SUBCUT SCH ×6 (00:05→20:27)
[2020-10-19 03:41] LABS: ABG Base Excess 5.7 MMOL/L (-2.5-2.5); ABG HCO3 29.5 MMOL/L (20-26); ABG Oxygen Saturation 97.2 % (95-100); ABG PCO2 42.1 MM HG (35-48); ABG PH 7.461 (7.35-7.45); ABG PO2 85.8 MM HG (80-95); ABG TCO2 27.4 MMOL/L (23-27)
[2020-10-19 05:08] LABS: Basophils # 0.1 10*3/uL (0.0-0.2); Basophils % 0.2 % (0.0-0.8); Eosinophils # 0.1 10*3/uL (0.0-0.87); Eosinophils % 0.4 % (0.00-10.9); Hematocrit 31.1 VOL% (35.7-47.0); Hemoglobin 9.6 GM/DL (12.0-16.0); Immature Granulocytes % 4.3 %; Immature Granulocytes Absolute 1.02 #; Lymphocytes # 0.8 10*3/uL (1.4-4.0); Lymphocytes % 3.2 % (21.3-54.2); Mean Corpuscular HGB Conc 30.9 GM/DL (32-36); Mean Corpuscular Volume 80.6 FL (87-102); Mean Platelet Volume 10.6 FL (9.6-12.0); Monocytes % 5.4 % (1.7-12.7); NRBC # 0.03 10*3/uL; Neutrophils % 86.5 % (38.7-73.9); Platelet Count 184 T/CUMM (130-400); Red Blood Count 3.86 MC/CUMM (3.8-5.5); Red Cell Distribution Width 18.6 % (9.3-17.3); White Blood Count 23.6 T/CUMM (4-12)
[2020-10-19 05:27] LABS: Calcium 7.8 MG/DL (8.5-10.1); Osmolality,Calculated 286.4 MOS/KG (273-304)
[2020-10-19 05:40] LABS: Band Neutrophils 1 % (0-10); Hypochromasia Slight; Lymphocytes 8 % (20-55); Platelet Estimate Normal; Segmented Neutrophils 88 % (50-85); Total Cells Counted 100
[2020-10-19] MEDS: CHOLECALCIFEROL 1,000 UNIT TABLET PO SCH (08:14)
[2020-10-19] MEDS: GABAPENTIN 300 MG CAPSULE PER TUBE SCH ×2 (08:15→20:28)
[2020-10-19] MEDS: ASCORBIC ACID 500 MG TABLET PO SCH ×2 (08:15→20:28)
[2020-10-19] MEDS: ZINC GLUCONATE 50 MG TABLET PO SCH (08:15)
[2020-10-19] MEDS: LEVOTHYROXINE 88 MCG TABLET PO SCH (08:15)
[2020-10-19] MEDS: LOSARTAN 25 MG TABLET PO SCH (08:15)
[2020-10-19] MEDS: methylPREDNISolone SOD SUC 40 MG/1 ML VIAL IV SCH ×2 (08:16→20:28)
[2020-10-19] MEDS: FAMOTIDINE 20 MG/2 ML VIAL IV SCH ×2 (08:17→20:27)
[2020-10-19] MEDS: MENTHOL/ZINC OXIDE OINT 71 GM JAR TOP SCH ×2 (08:18→20:28)
[2020-10-19] MEDS: FONDAPARINUX 2.5 MG/0.5 ML SYRINGE SUBCUT SCH (09:07)
[2020-10-19] MEDS: FLUCONAZOLE INJ 400 MG in PREMIX 1 EACH IV SCH (14:23)
[2020-10-19] MEDS: VANCOMYCIN INJ 2,000 MG in SODIUM CHLORIDE 0.9% 500 ML IV SCH (14:35)
[2020-10-19] MEDS: LEVOFLOXACIN INJ 750 MG in PREMIX 1 EACH IV SCH (18:00)
[2020-10-19] MEDS: INSULIN GLARGINE 100 UNIT/ML SUBCUT SCH (20:27)
[2020-10-19] MEDS: MORPHINE 4 MG/1 ML VIAL IV PRN (21:56)
[2020-10-20] MEDS: INSULIN LISPRO 100 UNIT/ML SUBCUT SCH ×7 (00:17→23:28)
[2020-10-20 04:34] LABS: Basophils % 0.2 % (0.0-0.8); Eosinophils # 0.1 10*3/uL (0.0-0.87); Eosinophils % 0.6 % (0.00-10.9); Hematocrit 34.1 VOL% (35.7-47.0); Hemoglobin 10.1 GM/DL (12.0-16.0); Immature Granulocytes % 4.7 %; Immature Granulocytes Absolute 1.06 #; Lymphocytes # 0.9 10*3/uL (1.4-4.0); Lymphocytes % 4.2 % (21.3-54.2); Mean Corpuscular HGB Conc 29.6 GM/DL (32-36); Mean Platelet Volume 10.4 FL (9.6-12.0); Monocytes % 5.6 % (1.7-12.7); NRBC # 0.02 10*3/uL; Neutrophils % 84.7 % (38.7-73.9); Platelet Count 186 T/CUMM (130-400); Red Blood Count 4.11 MC/CUMM (3.8-5.5); Red Cell Distribution Width 19.2 % (9.3-17.3); White Blood Count 22.5 T/CUMM (4-12)
[2020-10-20 04:56] LABS: ABG Base Excess 7.5 MMOL/L (-2.5-2.5); ABG HCO3 31.2 MMOL/L (20-26); ABG Oxygen Saturation 94.5 % (95-100); ABG PCO2 50.3 MM HG (35-48); ABG PH 7.426 (7.35-7.45); ABG PO2 72.8 MM HG (80-95); ABG TCO2 29.9 MMOL/L (23-27); Allen Test Positive; Pt O2 Delivery Device Ventilator
[2020-10-20 04:59] LABS: Band Neutrophils 1 % (0-10); Eosinophils 2 % (0-10); Hypochromasia 1+; Lymphocytes 2 % (20-55); Microcytosis 1+; Ovalocytes Slight; Platelet Estimate Adequate; Segmented Neutrophils 86 % (50-85); Total Cells Counted 100
[2020-10-20 05:07] LABS: Albumin 2.1 G/DL (3.4-5.0); Bilirubin,Total 0.8 MG/DL (0.2-1.0); Calcium 8.3 MG/DL (8.5-10.1); Osmolality,Calculated 281.4 MOS/KG (273-304); Potassium 4.1 MMOL/L (3.5-5.1); Total Protein 5.4 G/DL (6.4-8.3)
[2020-10-20] MEDS: LOSARTAN 25 MG TABLET PO SCH (08:15)
[2020-10-20] MEDS: ZINC GLUCONATE 50 MG TABLET PO SCH (08:15)
[2020-10-20] MEDS: LEVOTHYROXINE 88 MCG TABLET PO SCH (08:16)
[2020-10-20] MEDS: methylPREDNISolone SOD SUC 40 MG/1 ML VIAL IV SCH ×2 (08:16→20:04)
[2020-10-20] MEDS: GABAPENTIN 300 MG CAPSULE PER TUBE SCH ×2 (08:16→20:06)
[2020-10-20] MEDS: CHOLECALCIFEROL 1,000 UNIT TABLET PO SCH (08:16)
[2020-10-20] MEDS: ASCORBIC ACID 500 MG TABLET PO SCH ×2 (08:16→20:06)
[2020-10-20] MEDS: FAMOTIDINE 20 MG/2 ML VIAL IV SCH ×2 (08:17→20:06)
[2020-10-20] MEDS: MENTHOL/ZINC OXIDE OINT 71 GM JAR TOP SCH ×2 (08:19→20:05)
[2020-10-20] MEDS: fentaNYL 25 MCG/HR PATCH TRANSDERM SCH (08:19)
[2020-10-20] MEDS: VANCOMYCIN INJ 2,000 MG in SODIUM CHLORIDE 0.9% 500 ML IV SCH (09:58)
[2020-10-20] MEDS: FONDAPARINUX 2.5 MG/0.5 ML SYRINGE SUBCUT SCH (10:45)
[2020-10-20] MEDS: LEVOFLOXACIN INJ 750 MG in PREMIX 1 EACH IV SCH (18:20)
[2020-10-20] MEDS: INSULIN GLARGINE 100 UNIT/ML SUBCUT SCH (20:40)
[2020-10-20] MEDS ORDERED: LORazepam 2 MG/1 ML VIAL ONE (21:00)
[2020-10-20] MEDS: LORazepam 2 MG/1 ML VIAL IV PRN (21:05)
[2020-10-20] MEDS: MORPHINE 4 MG/1 ML VIAL IV PRN (23:48)
[2020-10-21] MEDS: VANCOMYCIN INJ 2,000 MG in SODIUM CHLORIDE 0.9% 500 ML IV SCH (02:45)
[2020-10-21] MEDS ORDERED: LORazepam 2 MG/1 ML VIAL ONE (02:58)
[2020-10-21] MEDS: LORazepam 2 MG/1 ML VIAL IV PRN (03:01)
[2020-10-21] MEDS: INSULIN LISPRO 100 UNIT/ML SUBCUT SCH ×5 (04:05→20:23)
[2020-10-21 04:29] LABS: Basophils % 0.2 % (0.0-0.8); Eosinophils # 0.1 10*3/uL (0.0-0.87); Eosinophils % 0.5 % (0.00-10.9); Hematocrit 33.3 VOL% (35.7-47.0); Immature Granulocytes % 4.2 %; Immature Granulocytes Absolute 0.83 #; Lymphocytes # 1.1 10*3/uL (1.4-4.0); Lymphocytes % 5.5 % (21.3-54.2); Mean Corpuscular Volume 83.7 FL (87-102); Mean Platelet Volume 10.6 FL (9.6-12.0); Monocytes % 6.1 % (1.7-12.7); Neutrophils % 83.5 % (38.7-73.9); Platelet Count 166 T/CUMM (130-400); Red Blood Count 3.98 MC/CUMM (3.8-5.5); Red Cell Distribution Width 19.8 % (9.3-17.3)
[2020-10-21 04:48] LABS: Hypochromasia 1+; Lymphocytes 7 % (20-55); Microcytosis 1+; Platelet Estimate Adequate; Segmented Neutrophils 86 % (50-85); Total Cells Counted 100
[2020-10-21 04:56] LABS: Bilirubin,Total 1.6 MG/DL (0.2-1.0); Osmolality,Calculated 289.6 MOS/KG (273-304); Potassium 3.6 MMOL/L (3.5-5.1); Total Protein 5.1 G/DL (6.4-8.3)
[2020-10-21 05:15] LABS: Allen Test Positive; Pt O2 Delivery Device Ventilator
[2020-10-21 05:16] LABS: ABG HCO3 32.8 MMOL/L (20-26); ABG Oxygen Saturation 98.4 % (95-100); ABG PCO2 50.1 MM HG (35-48); ABG PH 7.445 (7.35-7.45); ABG TCO2 31.5 MMOL/L (23-27)
[2020-10-21] MEDS: MENTHOL/ZINC OXIDE OINT 71 GM JAR TOP SCH ×2 (08:24→20:23)
[2020-10-21] MEDS: CHOLECALCIFEROL 1,000 UNIT TABLET PO SCH (08:27)
[2020-10-21] MEDS: ZINC GLUCONATE 50 MG TABLET PO SCH (08:27)
[2020-10-21] MEDS: GABAPENTIN 300 MG CAPSULE PER TUBE SCH ×2 (08:28→20:24)
[2020-10-21] MEDS: LOSARTAN 25 MG TABLET PO SCH (08:28)
[2020-10-21] MEDS: ASCORBIC ACID 500 MG TABLET PO SCH ×2 (08:28→20:24)
[2020-10-21] MEDS: LEVOTHYROXINE 88 MCG TABLET PO SCH (08:28)
[2020-10-21] MEDS: FAMOTIDINE 20 MG/2 ML VIAL IV SCH ×2 (08:29→20:23)
[2020-10-21] MEDS: methylPREDNISolone SOD SUC 40 MG/1 ML VIAL IV SCH ×2 (08:29→20:23)
[2020-10-21] MEDS: FONDAPARINUX 2.5 MG/0.5 ML SYRINGE SUBCUT SCH (09:09)
[2020-10-21] MEDS: LEVOFLOXACIN INJ 750 MG in PREMIX 1 EACH IV SCH (17:36)
[2020-10-21] MEDS: INSULIN GLARGINE 100 UNIT/ML SUBCUT SCH (20:23)
[2020-10-21] MEDS: MORPHINE 4 MG/1 ML VIAL IV PRN (21:10)
[2020-10-22] MEDS: INSULIN LISPRO 100 UNIT/ML SUBCUT SCH ×6 (00:22→20:06)
[2020-10-22] MEDS: MORPHINE 4 MG/1 ML VIAL IV PRN ×2 (01:45→08:10)
[2020-10-22 04:10] LABS: Basophils % 0.1 % (0.0-0.8); Eosinophils % 0.1 % (0.00-10.9); Hematocrit 33.8 VOL% (35.7-47.0); Hemoglobin 10.1 GM/DL (12.0-16.0); Immature Granulocytes % 2.5 %; Immature Granulocytes Absolute 0.51 #; Lymphocytes % 4.7 % (21.3-54.2); Mean Corpuscular HGB Conc 29.9 GM/DL (32-36); Mean Corpuscular Volume 83.3 FL (87-102); Mean Platelet Volume 10.5 FL (9.6-12.0); Monocytes % 5.3 % (1.7-12.7); NRBC # 0.02 10*3/uL; Neutrophils % 87.3 % (38.7-73.9); Platelet Count 160 T/CUMM (130-400); Red Blood Count 4.06 MC/CUMM (3.8-5.5); Red Cell Distribution Width 19.9 % (9.3-17.3); White Blood Count 20.7 T/CUMM (4-12)
[2020-10-22 04:29] LABS: Eosinophils 1 % (0-10); Hypochromasia 1+; Lymphocytes 1 % (20-55); Microcytosis 1+; Platelet Estimate Adequate; Segmented Neutrophils 93 % (50-85); Total Cells Counted 100
[2020-10-22 04:33] LABS: Albumin 1.9 G/DL (3.4-5.0); Osmolality,Calculated 282.4 MOS/KG (273-304); Potassium 3.7 MMOL/L (3.5-5.1); Total Protein 5.1 G/DL (6.4-8.3)
[2020-10-22 04:41] LABS: ABG HCO3 32.3 MMOL/L (20-26); ABG Oxygen Saturation 89.5 % (95-100); ABG PCO2 39.1 MM HG (35-48); ABG PH 7.535 (7.35-7.45); ABG PO2 55.3 MM HG (80-95); ABG TCO2 33.5 MMOL/L (23-27); Allen Test Positive
[2020-10-22] MEDS: methylPREDNISolone SOD SUC 40 MG/1 ML VIAL IV SCH ×2 (08:09→20:10)
[2020-10-22] MEDS: FAMOTIDINE 20 MG/2 ML VIAL IV SCH ×2 (08:09→20:07)
[2020-10-22] MEDS: MENTHOL/ZINC OXIDE OINT 71 GM JAR TOP SCH ×2 (08:53→20:06)
[2020-10-22] MEDS ORDERED: MORPHINE 4 MG/1 ML VIAL IV PRN (10:18)
[2020-10-22] MEDS: FONDAPARINUX 2.5 MG/0.5 ML SYRINGE SUBCUT SCH (10:35)
[2020-10-22] MEDS: LEVOFLOXACIN INJ 750 MG in PREMIX 1 EACH IV SCH (10:37)
[2020-10-22] MEDS: CHOLECALCIFEROL 1,000 UNIT TABLET PO SCH (11:00)
[2020-10-22] MEDS: LEVOTHYROXINE 88 MCG TABLET PO SCH (11:00)
[2020-10-22] MEDS: GABAPENTIN 300 MG CAPSULE PER TUBE SCH ×2 (11:00→20:10)
[2020-10-22] MEDS: LOSARTAN 25 MG TABLET PO SCH (11:00)
[2020-10-22] MEDS: ZINC GLUCONATE 50 MG TABLET PO SCH (11:00)
[2020-10-22] MEDS: ASCORBIC ACID 500 MG TABLET PO SCH ×2 (11:00→20:11)
[2020-10-22] MEDS: INSULIN GLARGINE 100 UNIT/ML SUBCUT SCH (20:09)
[2020-10-23] MEDS: INSULIN LISPRO 100 UNIT/ML SUBCUT SCH ×6 (00:22→21:00)
[2020-10-23 04:36] LABS: Basophils % 0.2 % (0.0-0.8); Eosinophils # 0.1 10*3/uL (0.0-0.87); Eosinophils % 0.6 % (0.00-10.9); Hematocrit 31.1 VOL% (35.7-47.0); Hemoglobin 9.9 GM/DL (12.0-16.0); Immature Granulocytes % 1.8 %; Immature Granulocytes Absolute 0.36 #; Lymphocytes % 4.8 % (21.3-54.2); Mean Corpuscular HGB Conc 31.8 GM/DL (32-36); Mean Corpuscular Volume 81.4 FL (87-102); Monocytes % 5.5 % (1.7-12.7); Neutrophils % 87.1 % (38.7-73.9); Platelet Count 142 T/CUMM (130-400); Red Blood Count 3.82 MC/CUMM (3.8-5.5); Red Cell Distribution Width 19.7 % (9.3-17.3); White Blood Count 19.8 T/CUMM (4-12)
[2020-10-23 05:02] LABS: Albumin 1.8 G/DL (3.4-5.0); Bilirubin,Total 1.4 MG/DL (0.2-1.0); Calcium 8.3 MG/DL (8.5-10.1); Osmolality,Calculated 279.7 MOS/KG (273-304); Potassium 3.3 MMOL/L (3.5-5.1)
[2020-10-23 05:03] LABS: Band Neutrophils 3 % (0-10); Lymphocytes 2 % (20-55); Metamyelocytes 1 %; Segmented Neutrophils 91 % (50-85); Total Cells Counted 100
[2020-10-23 05:04] LABS: Hypochromasia 1+; Microcytosis 1+; Platelet Estimate Adequate
[2020-10-23] MEDS: MORPHINE 4 MG/1 ML VIAL IV PRN ×2 (06:15→13:27)
[2020-10-23] MEDS: POTASSIUM CHLORIDE 20 MEQ TABLET PO PRN (06:15)
[2020-10-23] MEDS: methylPREDNISolone SOD SUC 40 MG/1 ML VIAL IV SCH ×2 (08:08→21:00)
[2020-10-23] MEDS: FAMOTIDINE 20 MG/2 ML VIAL IV SCH ×2 (08:09→20:59)
[2020-10-23] MEDS: ZINC GLUCONATE 50 MG TABLET PO SCH (08:09)
[2020-10-23] MEDS: fentaNYL 25 MCG/HR PATCH TRANSDERM SCH (08:09)
[2020-10-23] MEDS: CHOLECALCIFEROL 1,000 UNIT TABLET PO SCH (08:10)
[2020-10-23] MEDS: GABAPENTIN 300 MG CAPSULE PER TUBE SCH ×2 (08:10→20:59)
[2020-10-23] MEDS: LOSARTAN 25 MG TABLET PO SCH (08:11)
[2020-10-23] MEDS: ASCORBIC ACID 500 MG TABLET PO SCH ×2 (08:11→21:00)
[2020-10-23] MEDS: LEVOTHYROXINE 88 MCG TABLET PO SCH (08:11)
[2020-10-23] MEDS: MENTHOL/ZINC OXIDE OINT 71 GM JAR TOP SCH ×2 (08:59→20:59)
[2020-10-23] MEDS: FONDAPARINUX 2.5 MG/0.5 ML SYRINGE SUBCUT SCH (10:28)
[2020-10-23] MEDS: LEVOFLOXACIN INJ 750 MG in PREMIX 1 EACH IV SCH (10:28)
[2020-10-23] MEDS: INSULIN GLARGINE 100 UNIT/ML SUBCUT SCH (20:59)
[2020-10-24] MEDS: INSULIN LISPRO 100 UNIT/ML SUBCUT SCH ×6 (00:41→21:13)
[2020-10-24] MEDS: ACETAMINOPHEN 325 MG TABLET PO PRN (02:38)
[2020-10-24 05:59] LABS: Basophils % 0.1 % (0.0-0.8); Eosinophils # 0.1 10*3/uL (0.0-0.87); Eosinophils % 0.7 % (0.00-10.9); Hematocrit 33.4 VOL% (35.7-47.0); Hemoglobin 10.3 GM/DL (12.0-16.0); Immature Granulocytes % 1.6 %; Lymphocytes # 1.1 10*3/uL (1.4-4.0); Lymphocytes % 5.9 % (21.3-54.2); Mean Corpuscular HGB Conc 30.8 GM/DL (32-36); Mean Corpuscular Volume 82.3 FL (87-102); Mean Platelet Volume 11.2 FL (9.6-12.0); Monocytes % 6.4 % (1.7-12.7); Neutrophils % 85.3 % (38.7-73.9); Platelet Count 113 T/CUMM (130-400); Red Blood Count 4.06 MC/CUMM (3.8-5.5); Red Cell Distribution Width 19.8 % (9.3-17.3); White Blood Count 18.2 T/CUMM (4-12)
[2020-10-24 06:50] LABS: Hypochromasia 1+; Microcytosis 1+; Platelet Estimate Decreased
[2020-10-24] MEDS: GABAPENTIN 300 MG CAPSULE PER TUBE SCH ×2 (09:46→21:13)
[2020-10-24] MEDS: LEVOTHYROXINE 88 MCG TABLET PO SCH (09:46)
[2020-10-24] MEDS: ZINC GLUCONATE 50 MG TABLET PO SCH (09:46)
[2020-10-24] MEDS: LOSARTAN 25 MG TABLET PO SCH (09:46)
[2020-10-24] MEDS: ASCORBIC ACID 500 MG TABLET PO SCH ×2 (09:46→21:13)
[2020-10-24] MEDS: CHOLECALCIFEROL 1,000 UNIT TABLET PO SCH (09:46)
[2020-10-24] MEDS: MENTHOL/ZINC OXIDE OINT 71 GM JAR TOP SCH ×2 (09:47→21:12)
[2020-10-24] MEDS: FAMOTIDINE 20 MG/2 ML VIAL IV SCH ×2 (09:47→21:14)
[2020-10-24] MEDS: methylPREDNISolone SOD SUC 40 MG/1 ML VIAL IV SCH ×2 (09:50→21:13)
[2020-10-24] MEDS: FONDAPARINUX 2.5 MG/0.5 ML SYRINGE SUBCUT SCH (09:57)
[2020-10-24] MEDS: LEVOFLOXACIN INJ 750 MG in PREMIX 1 EACH IV SCH (09:58)
[2020-10-24] MEDS: INSULIN GLARGINE 100 UNIT/ML SUBCUT SCH (21:12)
[2020-10-24] MEDS: MORPHINE 4 MG/1 ML VIAL IV PRN (21:21)
[2020-10-25] MEDS: INSULIN LISPRO 100 UNIT/ML SUBCUT SCH ×6 (00:14→20:11)
[2020-10-25 07:04] LABS: Basophils % 0.1 % (0.0-0.8); Eosinophils # 0.1 10*3/uL (0.0-0.87); Eosinophils % 0.3 % (0.00-10.9); Hematocrit 33.9 VOL% (35.7-47.0); Hemoglobin 10.4 GM/DL (12.0-16.0); Immature Granulocytes % 1.3 %; Immature Granulocytes Absolute 0.27 #; Lymphocytes # 1.5 10*3/uL (1.4-4.0); Lymphocytes % 6.7 % (21.3-54.2); Mean Corpuscular HGB Conc 30.7 GM/DL (32-36); Mean Corpuscular Volume 83.3 FL (87-102); Mean Platelet Volume 12.2 FL (9.6-12.0); Monocytes % 5.6 % (1.7-12.7); Platelet Count 119 T/CUMM (130-400); Red Blood Count 4.07 MC/CUMM (3.8-5.5); Red Cell Distribution Width 20.1 % (9.3-17.3); White Blood Count 21.5 T/CUMM (4-12)
[2020-10-25 07:58] LABS: Calcium 8.3 MG/DL (8.5-10.1); Osmolality,Calculated 283.5 MOS/KG (273-304); Potassium 3.3 MMOL/L (3.5-5.1)
[2020-10-25] MEDS: FAMOTIDINE 20 MG/2 ML VIAL IV SCH ×2 (08:54→21:22)
[2020-10-25] MEDS: methylPREDNISolone SOD SUC 40 MG/1 ML VIAL IV SCH ×2 (08:54→21:22)
[2020-10-25] MEDS: CHOLECALCIFEROL 1,000 UNIT TABLET PO SCH (08:55)
[2020-10-25] MEDS: ZINC GLUCONATE 50 MG TABLET PO SCH (08:55)
[2020-10-25] MEDS: MENTHOL/ZINC OXIDE OINT 71 GM JAR TOP SCH ×2 (08:55→21:21)
[2020-10-25] MEDS: LEVOTHYROXINE 88 MCG TABLET PO SCH (08:55)
[2020-10-25] MEDS: GABAPENTIN 300 MG CAPSULE PER TUBE SCH ×2 (08:55→21:22)
[2020-10-25] MEDS: ASCORBIC ACID 500 MG TABLET PO SCH ×2 (08:55→21:22)
[2020-10-25] MEDS: LOSARTAN 25 MG TABLET PO SCH (08:55)
[2020-10-25 08:59] LABS: Band Neutrophils 1 % (0-10); Lymphocytes 6 % (20-55); Polychromasia Slight; Segmented Neutrophils 86 % (50-85); Total Cells Counted 100
[2020-10-25 09:00] LABS: Platelet Estimate Adequate
[2020-10-25 09:02] LABS: Hypochromasia 3+
[2020-10-25] MEDS: MORPHINE 4 MG/1 ML VIAL IV PRN ×3 (10:12→23:26)
[2020-10-25] MEDS: FONDAPARINUX 2.5 MG/0.5 ML SYRINGE SUBCUT SCH (10:16)
[2020-10-25] MEDS: LEVOFLOXACIN INJ 750 MG in PREMIX 1 EACH IV SCH (10:16)
[2020-10-25] MEDS: INSULIN GLARGINE 100 UNIT/ML SUBCUT SCH (21:23)
[2020-10-26] MEDS: INSULIN LISPRO 100 UNIT/ML SUBCUT SCH ×6 (01:02→21:23)
[2020-10-26] MEDS: LEVOFLOXACIN INJ 750 MG in PREMIX 1 EACH IV SCH (09:52)
[2020-10-26] MEDS: LEVOTHYROXINE 88 MCG TABLET PO SCH (09:53)
[2020-10-26] MEDS: methylPREDNISolone SOD SUC 40 MG/1 ML VIAL IV SCH ×2 (09:53→21:24)
[2020-10-26] MEDS: GABAPENTIN 300 MG CAPSULE PER TUBE SCH ×2 (09:54→21:25)
[2020-10-26] MEDS: fentaNYL 25 MCG/HR PATCH TRANSDERM SCH (09:54)
[2020-10-26] MEDS: CHOLECALCIFEROL 1,000 UNIT TABLET PO SCH (09:54)
[2020-10-26] MEDS: ASCORBIC ACID 500 MG TABLET PO SCH ×2 (09:54→22:11)
[2020-10-26] MEDS: ZINC GLUCONATE 50 MG TABLET PO SCH (09:54)
[2020-10-26] MEDS: MENTHOL/ZINC OXIDE OINT 71 GM JAR TOP SCH ×2 (09:54→21:25)
[2020-10-26] MEDS: LOSARTAN 25 MG TABLET PO SCH (09:54)
[2020-10-26] MEDS: FAMOTIDINE 20 MG/2 ML VIAL IV SCH ×2 (09:55→21:24)
[2020-10-26] MEDS: FONDAPARINUX 2.5 MG/0.5 ML SYRINGE SUBCUT SCH (09:56)
[2020-10-26] MEDS: MORPHINE 4 MG/1 ML VIAL IV PRN ×2 (17:44→22:12)
[2020-10-26] MEDS: INSULIN GLARGINE 100 UNIT/ML SUBCUT SCH (21:24)
[2020-10-27] MEDS: INSULIN LISPRO 100 UNIT/ML SUBCUT SCH ×7 (02:29→23:54)
[2020-10-27] MEDS: MORPHINE 4 MG/1 ML VIAL IV PRN ×3 (05:30→16:02)
[2020-10-27] MEDS ORDERED: FUROSEMIDE 20 MG/2 ML VIAL IV PRN (09:53)
[2020-10-27] MEDS: ZINC GLUCONATE 50 MG TABLET PO SCH (10:05)
[2020-10-27] MEDS: LOSARTAN 25 MG TABLET PO SCH (10:05)
[2020-10-27] MEDS: GABAPENTIN 300 MG CAPSULE PER TUBE SCH ×2 (10:05→20:54)
[2020-10-27] MEDS: ASCORBIC ACID 500 MG TABLET PO SCH ×2 (10:05→20:54)
[2020-10-27] MEDS: LEVOTHYROXINE 88 MCG TABLET PO SCH (10:06)
[2020-10-27] MEDS: FAMOTIDINE 20 MG/2 ML VIAL IV SCH ×2 (10:06→20:56)
[2020-10-27] MEDS: methylPREDNISolone SOD SUC 40 MG/1 ML VIAL IV SCH ×2 (10:06→20:54)
[2020-10-27] MEDS: FONDAPARINUX 2.5 MG/0.5 ML SYRINGE SUBCUT SCH (10:07)
[2020-10-27] MEDS: MENTHOL/ZINC OXIDE OINT 71 GM JAR TOP SCH ×2 (10:07→20:55)
[2020-10-27] MEDS: LEVOFLOXACIN INJ 750 MG in PREMIX 1 EACH IV SCH (10:12)
[2020-10-27] MEDS: CHOLECALCIFEROL 1,000 UNIT TABLET PO SCH (10:16)
[2020-10-27] MEDS ORDERED: FUROSEMIDE 20 MG/2 ML VIAL IV ONE (11:00)
[2020-10-27 13:05] LABS: Calcium 8.3 MG/DL (8.5-10.1); Osmolality,Calculated 270.2 MOS/KG (273-304); Potassium 3.4 MMOL/L (3.5-5.1)
[2020-10-27] MEDS: POTASSIUM CHLORIDE 20 MEQ TABLET PO PRN ×2 (16:02→18:18)
[2020-10-27 20:45] LABS: Basophils # 0.1 10*3/uL (0.0-0.2); Basophils % 0.2 % (0.0-0.8); Eosinophils # 0.2 10*3/uL (0.0-0.87); Eosinophils % 0.6 % (0.00-10.9); Hematocrit 32.1 VOL% (35.7-47.0); Hemoglobin 9.9 GM/DL (12.0-16.0); Immature Granulocytes % 2.1 %; Immature Granulocytes Absolute 0.54 #; Lymphocytes # 2.7 10*3/uL (1.4-4.0); Lymphocytes % 10.2 % (21.3-54.2); Mean Corpuscular HGB Conc 30.8 GM/DL (32-36); Mean Corpuscular Volume 82.7 FL (87-102); Mean Platelet Volume 10.8 FL (9.6-12.0); Monocytes % 5.7 % (1.7-12.7); NRBC # 0.02 10*3/uL; Neutrophils % 81.2 % (38.7-73.9); Platelet Count 122 T/CUMM (130-400); Red Blood Count 3.88 MC/CUMM (3.8-5.5); White Blood Count 26.2 T/CUMM (4-12)
[2020-10-27] MEDS: INSULIN GLARGINE 100 UNIT/ML SUBCUT SCH (20:54)
[2020-10-27 21:42] LABS: Band Neutrophils 3 % (0-10); Lymphocytes 10 % (20-55); Platelet Estimate Normal; Segmented Neutrophils 84 % (50-85); Total Cells Counted 100
[2020-10-28] MEDS: POTASSIUM CHLORIDE 20 MEQ TABLET PO PRN (01:00)
[2020-10-28] MEDS: INSULIN LISPRO 100 UNIT/ML SUBCUT SCH ×5 (04:07→21:34)
[2020-10-28 05:36] LABS: Basophils % 0.1 % (0.0-0.8); Eosinophils # 0.1 10*3/uL (0.0-0.87); Eosinophils % 0.4 % (0.00-10.9); Hematocrit 30.7 VOL% (35.7-47.0); Hemoglobin 9.3 GM/DL (12.0-16.0); INR 1.1; Immature Granulocytes % 2.2 %; Immature Granulocytes Absolute 0.49 #; Lymphocytes % 9.1 % (21.3-54.2); Mean Corpuscular HGB Conc 30.3 GM/DL (32-36); Mean Corpuscular Volume 83.9 FL (87-102); Mean Platelet Volume 11.4 FL (9.6-12.0); Monocytes % 4.7 % (1.7-12.7); Neutrophils % 83.5 % (38.7-73.9); PT Patient Result 11.5 SECS (9.8-11.9); Platelet Count 105 T/CUMM (130-400); Red Blood Count 3.66 MC/CUMM (3.8-5.5); White Blood Count 22.2 T/CUMM (4-12)
[2020-10-28] MEDS: MORPHINE 4 MG/1 ML VIAL IV PRN ×4 (05:48→21:40)
[2020-10-28 05:52] LABS: Calcium 8.3 MG/DL (8.5-10.1); Potassium 3.9 MMOL/L (3.5-5.1)
[2020-10-28 06:01] LABS: Hypochromasia 1+; Lymphocytes 12 % (20-55); Microcytosis 1+; Platelet Estimate Decreased; Segmented Neutrophils 85 % (50-85); Total Cells Counted 100
[2020-10-28] MEDS: GABAPENTIN 300 MG CAPSULE PER TUBE SCH ×2 (08:43→21:34)
[2020-10-28] MEDS: LEVOTHYROXINE 88 MCG TABLET PO SCH (08:43)
[2020-10-28] MEDS: ZINC GLUCONATE 50 MG TABLET PO SCH (08:43)
[2020-10-28] MEDS: CHOLECALCIFEROL 1,000 UNIT TABLET PO SCH (08:43)
[2020-10-28] MEDS: ASCORBIC ACID 500 MG TABLET PO SCH ×2 (08:43→21:33)
[2020-10-28] MEDS: LOSARTAN 25 MG TABLET PO SCH (08:43)
[2020-10-28] MEDS: MENTHOL/ZINC OXIDE OINT 71 GM JAR TOP SCH ×2 (08:44→21:34)
[2020-10-28] MEDS: FAMOTIDINE 20 MG/2 ML VIAL IV SCH ×2 (08:44→21:44)
[2020-10-28] MEDS: methylPREDNISolone SOD SUC 40 MG/1 ML VIAL IV SCH ×2 (08:44→21:42)
[2020-10-28] MEDS: LEVOFLOXACIN INJ 750 MG in PREMIX 1 EACH IV SCH (09:01)
[2020-10-28] MEDS: FONDAPARINUX 2.5 MG/0.5 ML SYRINGE SUBCUT SCH (10:09)
[2020-10-28] MEDS: INSULIN GLARGINE 100 UNIT/ML SUBCUT SCH (21:34)
[2020-10-29] MEDS: INSULIN LISPRO 100 UNIT/ML SUBCUT SCH ×6 (00:11→21:22)
[2020-10-29] MEDS: MORPHINE 4 MG/1 ML VIAL IV PRN ×3 (04:07→13:40)
[2020-10-29] MEDS: LOSARTAN 25 MG TABLET PO SCH (08:14)
[2020-10-29] MEDS: fentaNYL 25 MCG/HR PATCH TRANSDERM SCH (08:14)
[2020-10-29] MEDS: MENTHOL/ZINC OXIDE OINT 71 GM JAR TOP SCH ×2 (08:14→20:26)
[2020-10-29] MEDS: LEVOTHYROXINE 88 MCG TABLET PO SCH (08:14)
[2020-10-29] MEDS: ASCORBIC ACID 500 MG TABLET PO SCH ×2 (08:15→20:25)
[2020-10-29] MEDS: GABAPENTIN 300 MG CAPSULE PER TUBE SCH ×2 (08:15→20:25)
[2020-10-29] MEDS: methylPREDNISolone SOD SUC 40 MG/1 ML VIAL IV SCH (08:15)
[2020-10-29] MEDS: CHOLECALCIFEROL 1,000 UNIT TABLET PO SCH (08:15)
[2020-10-29] MEDS: ZINC GLUCONATE 50 MG TABLET PO SCH (08:15)
[2020-10-29] MEDS: FAMOTIDINE 20 MG/2 ML VIAL IV SCH ×2 (08:41→20:25)
[2020-10-29] MEDS ORDERED: ENOXAPARIN 40 MG/0.4 ML SYRINGE SUBCUT SCH (09:00)
[2020-10-29] MEDS: LEVOFLOXACIN INJ 750 MG in PREMIX 1 EACH IV SCH (09:47)
[2020-10-29] MEDS: INSULIN GLARGINE 100 UNIT/ML SUBCUT SCH (20:26)
[2020-10-30] MEDS: INSULIN LISPRO 100 UNIT/ML SUBCUT SCH ×7 (00:33→23:55)
[2020-10-30 05:31] LABS: Basophils # 0.1 10*3/uL (0.0-0.2); Basophils % 0.3 % (0.0-0.8); Eosinophils # 0.6 10*3/uL (0.0-0.87); Eosinophils % 3.1 % (0.00-10.9); Hematocrit 32.4 VOL% (35.7-47.0); Hemoglobin 9.9 GM/DL (12.0-16.0); Immature Granulocytes % 2.8 %; Immature Granulocytes Absolute 0.53 #; Lymphocytes # 2.3 10*3/uL (1.4-4.0); Lymphocytes % 12.5 % (21.3-54.2); Mean Corpuscular HGB Conc 30.6 GM/DL (32-36); Mean Corpuscular Volume 83.3 FL (87-102); Mean Platelet Volume 10.8 FL (9.6-12.0); Monocytes % 6.1 % (1.7-12.7); NRBC # 0.02 10*3/uL; Neutrophils % 75.2 % (38.7-73.9); Red Blood Count 3.89 MC/CUMM (3.8-5.5); Red Cell Distribution Width 20.7 % (9.3-17.3); White Blood Count 18.7 T/CUMM (4-12)
[2020-10-30 05:33] LABS: Platelet Count 107 T/CUMM (130-400)
[2020-10-30 05:52] LABS: Calcium 8.1 MG/DL (8.5-10.1); Osmolality,Calculated 273.1 MOS/KG (273-304); Potassium 3.9 MMOL/L (3.5-5.1)
[2020-10-30 06:20] LABS: Eosinophils 2 % (0-10); Lymphocytes 14 % (20-55); Platelet Estimate Decreased; Segmented Neutrophils 78 % (50-85); Total Cells Counted 100
[2020-10-30] MEDS: MORPHINE 4 MG/1 ML VIAL IV PRN ×3 (09:05→20:18)
[2020-10-30] MEDS: ASCORBIC ACID 500 MG TABLET PO SCH ×2 (09:06→20:21)
[2020-10-30] MEDS: CHOLECALCIFEROL 1,000 UNIT TABLET PO SCH (09:06)
[2020-10-30] MEDS: LOSARTAN 25 MG TABLET PO SCH (09:06)
[2020-10-30] MEDS: FAMOTIDINE 20 MG/2 ML VIAL IV SCH ×2 (09:06→20:21)
[2020-10-30] MEDS: ZINC GLUCONATE 50 MG TABLET PO SCH (09:06)
[2020-10-30] MEDS: LEVOTHYROXINE 88 MCG TABLET PO SCH (09:06)
[2020-10-30] MEDS: methylPREDNISolone SOD SUC 40 MG/1 ML VIAL IV SCH (09:07)
[2020-10-30] MEDS: GABAPENTIN 300 MG CAPSULE PER TUBE SCH ×2 (09:07→20:21)
[2020-10-30] MEDS: MENTHOL/ZINC OXIDE OINT 71 GM JAR TOP SCH ×2 (09:07→20:21)
[2020-10-30] MEDS: INSULIN GLARGINE 100 UNIT/ML SUBCUT SCH (21:24)
[2020-10-31] MEDS: MORPHINE 4 MG/1 ML VIAL IV PRN ×4 (00:16→22:32)
[2020-10-31] MEDS: INSULIN LISPRO 100 UNIT/ML SUBCUT SCH ×6 (03:41→23:29)
[2020-10-31] MEDS: CLINDAMYCIN INJ 600 MG in PREMIX 1 EACH IV SCH ×3 (05:30→22:35)
[2020-10-31] MEDS ORDERED: LIDOCAINE 2% 5 ML VIAL ONE (06:49)
[2020-10-31] MEDS ORDERED: propofoL 200 MG/20 ML VIAL IV ONE (06:49)
[2020-10-31] MEDS ORDERED: ETOMIDATE 20 MG/10 ML VIAL IV ONE (06:49)
[2020-10-31] MEDS: LACTATED RINGERS 1,000 ML IV SCH (07:09)
[2020-10-31] MEDS ORDERED: KETAMINE 500 MG/10 ML VIAL ONE (07:44)
[2020-10-31] MEDS: LOSARTAN 25 MG TABLET PO SCH (09:35)
[2020-10-31] MEDS: ACETAMINOPHEN 325 MG TABLET PO PRN (09:35)
[2020-10-31] MEDS: GABAPENTIN 300 MG CAPSULE PER TUBE SCH ×2 (09:35→21:34)
[2020-10-31] MEDS: ZINC GLUCONATE 50 MG TABLET PO SCH (09:35)
[2020-10-31] MEDS: FAMOTIDINE 20 MG/2 ML VIAL IV SCH ×2 (09:36→21:34)
[2020-10-31] MEDS: methylPREDNISolone SOD SUC 40 MG/1 ML VIAL IV SCH (09:36)
[2020-10-31] MEDS: CHOLECALCIFEROL 1,000 UNIT TABLET PO SCH (09:43)
[2020-10-31] MEDS: MENTHOL/ZINC OXIDE OINT 71 GM JAR TOP SCH ×2 (09:43→21:35)
[2020-10-31] MEDS: ASCORBIC ACID 500 MG TABLET PO SCH ×2 (09:43→21:34)
[2020-10-31] MEDS: LEVOTHYROXINE 88 MCG TABLET PO SCH (09:43)
[2020-10-31] MEDS: INSULIN GLARGINE 100 UNIT/ML SUBCUT SCH (21:34)
[2020-11-01] MEDS: INSULIN LISPRO 100 UNIT/ML SUBCUT SCH ×6 (03:44→23:55)
[2020-11-01 06:31] LABS: Basophils % 0.2 % (0.0-0.8); Eosinophils # 0.3 10*3/uL (0.0-0.87); Eosinophils % 1.6 % (0.00-10.9); Hemoglobin 9.6 GM/DL (12.0-16.0); Immature Granulocytes % 2.9 %; Immature Granulocytes Absolute 0.53 #; Lymphocytes # 2.5 10*3/uL (1.4-4.0); Lymphocytes % 13.3 % (21.3-54.2); Mean Corpuscular Volume 82.9 FL (87-102); Mean Platelet Volume 10.7 FL (9.6-12.0); Monocytes % 6.5 % (1.7-12.7); Neutrophils % 75.5 % (38.7-73.9); Platelet Count 144 T/CUMM (130-400); Red Blood Count 3.74 MC/CUMM (3.8-5.5); Red Cell Distribution Width 20.4 % (9.3-17.3); White Blood Count 18.4 T/CUMM (4-12)
[2020-11-01 06:54] LABS: Band Neutrophils 3 % (0-10); Bilirubin,Total 1.6 MG/DL (0.2-1.0); Calcium 8.4 MG/DL (8.5-10.1); Eosinophils 1 % (0-10); Hypochromasia 1+; Lymphocytes 13 % (20-55); Microcytosis 1+; Platelet Estimate Adequate; Potassium 3.6 MMOL/L (3.5-5.1); Segmented Neutrophils 80 % (50-85); Total Cells Counted 100; Total Protein 5.9 G/DL (6.4-8.3)
[2020-11-01] MEDS: LEVOTHYROXINE 88 MCG TABLET PO SCH (10:24)
[2020-11-01] MEDS: LACTATED RINGERS 1,000 ML IV SCH (10:24)
[2020-11-01] MEDS: CHOLECALCIFEROL 1,000 UNIT TABLET PO SCH (10:24)
[2020-11-01] MEDS: ASCORBIC ACID 500 MG TABLET PO SCH ×2 (10:24→20:40)
[2020-11-01] MEDS: MORPHINE 4 MG/1 ML VIAL IV PRN ×3 (10:25→22:28)
[2020-11-01] MEDS: FAMOTIDINE 20 MG/2 ML VIAL IV SCH ×2 (10:25→20:40)
[2020-11-01] MEDS: methylPREDNISolone SOD SUC 40 MG/1 ML VIAL IV SCH (10:25)
[2020-11-01] MEDS: LOSARTAN 25 MG TABLET PO SCH (10:25)
[2020-11-01] MEDS: ZINC GLUCONATE 50 MG TABLET PO SCH (10:25)
[2020-11-01] MEDS: GABAPENTIN 300 MG CAPSULE PER TUBE SCH ×2 (10:25→20:40)
[2020-11-01] MEDS: MENTHOL/ZINC OXIDE OINT 71 GM JAR TOP SCH ×2 (10:26→20:41)
[2020-11-01] MEDS: INSULIN GLARGINE 100 UNIT/ML SUBCUT SCH (20:41)
[2020-11-02] MEDS: INSULIN LISPRO 100 UNIT/ML SUBCUT SCH ×5 (04:11→20:20)
[2020-11-02] MEDS: MORPHINE 4 MG/1 ML VIAL IV PRN ×4 (05:08→21:48)
[2020-11-02] MEDS: LACTATED RINGERS 1,000 ML IV SCH (09:11)
[2020-11-02] MEDS: LOSARTAN 25 MG TABLET PO SCH (09:37)
[2020-11-02] MEDS: FAMOTIDINE 20 MG/2 ML VIAL IV SCH ×2 (09:37→21:50)
[2020-11-02] MEDS: GABAPENTIN 300 MG CAPSULE PER TUBE SCH ×2 (09:37→21:53)
[2020-11-02] MEDS: CHOLECALCIFEROL 1,000 UNIT TABLET PO SCH (09:37)
[2020-11-02] MEDS: ASCORBIC ACID 500 MG TABLET PO SCH ×2 (09:37→21:53)
[2020-11-02] MEDS: ZINC GLUCONATE 50 MG TABLET PO SCH (09:37)
[2020-11-02] MEDS: MENTHOL/ZINC OXIDE OINT 71 GM JAR TOP SCH ×2 (09:37→21:56)
[2020-11-02] MEDS: LEVOTHYROXINE 88 MCG TABLET PO SCH (09:37)
[2020-11-02] MEDS: methylPREDNISolone SOD SUC 40 MG/1 ML VIAL IV SCH (09:38)
[2020-11-02] MEDS: busPIRone 5 MG TABLET PO SCH (12:09)
[2020-11-02] MEDS: INSULIN GLARGINE 100 UNIT/ML SUBCUT SCH (21:52)
[2020-11-03] MEDS: INSULIN LISPRO 100 UNIT/ML SUBCUT SCH ×6 (00:09→20:20)
[2020-11-03] MEDS: MORPHINE 4 MG/1 ML VIAL IV PRN ×4 (02:06→20:14)
[2020-11-03 08:47] LABS: Basophils % 0.1 % (0.0-0.8); Eosinophils # 0.7 10*3/uL (0.0-0.87); Eosinophils % 4.5 % (0.00-10.9); Hematocrit 29.4 VOL% (35.7-47.0); Hemoglobin 8.7 GM/DL (12.0-16.0); Immature Granulocytes % 2.8 %; Immature Granulocytes Absolute 0.42 #; Lymphocytes # 2.3 10*3/uL (1.4-4.0); Lymphocytes % 15.4 % (21.3-54.2); Mean Corpuscular HGB Conc 29.6 GM/DL (32-36); Mean Platelet Volume 10.3 FL (9.6-12.0); Monocytes % 6.2 % (1.7-12.7); NRBC # 0.02 10*3/uL; Platelet Count 154 T/CUMM (130-400); Red Blood Count 3.38 MC/CUMM (3.8-5.5); Red Cell Distribution Width 20.6 % (9.3-17.3); White Blood Count 15.2 T/CUMM (4-12)
[2020-11-03] MEDS: methylPREDNISolone SOD SUC 40 MG/1 ML VIAL IV SCH (09:06)
[2020-11-03] MEDS: FAMOTIDINE 20 MG/2 ML VIAL IV SCH (09:06)
[2020-11-03] MEDS: CHOLECALCIFEROL 1,000 UNIT TABLET PO SCH (09:07)
[2020-11-03] MEDS: ZINC GLUCONATE 50 MG TABLET PO SCH (09:07)
[2020-11-03] MEDS: busPIRone 5 MG TABLET PO SCH ×2 (09:07→20:44)
[2020-11-03] MEDS: LEVOTHYROXINE 88 MCG TABLET PO SCH (09:07)
[2020-11-03] MEDS: ASCORBIC ACID 500 MG TABLET PO SCH ×2 (09:07→20:45)
[2020-11-03] MEDS: LOSARTAN 25 MG TABLET PO SCH (09:07)
[2020-11-03] MEDS: MENTHOL/ZINC OXIDE OINT 71 GM JAR TOP SCH ×2 (09:07→20:45)
[2020-11-03] MEDS: GABAPENTIN 300 MG CAPSULE PER TUBE SCH (09:08)
[2020-11-03 09:10] LABS: Calcium 7.9 MG/DL (8.5-10.1); Osmolality,Calculated 283.3 MOS/KG (273-304); Potassium 3.1 MMOL/L (3.5-5.1)
[2020-11-03 09:49] LABS: Basophils % 0.2 % (0.0-0.8); Eosinophils # 0.7 10*3/uL (0.0-0.87); Eosinophils % 4.4 % (0.00-10.9); Hematocrit 29.4 VOL% (35.7-47.0); Immature Granulocytes % 2.2 %; Immature Granulocytes Absolute 0.35 #; Lymphocytes # 2.4 10*3/uL (1.4-4.0); Lymphocytes % 15.3 % (21.3-54.2); Mean Corpuscular HGB Conc 30.6 GM/DL (32-36); Mean Platelet Volume 10.3 FL (9.6-12.0); Monocytes % 6.1 % (1.7-12.7); NRBC # 0.03 10*3/uL; Neutrophils % 71.8 % (38.7-73.9); Platelet Count 157 T/CUMM (130-400); Red Blood Count 3.46 MC/CUMM (3.8-5.5); Red Cell Distribution Width 20.7 % (9.3-17.3); White Blood Count 15.9 T/CUMM (4-12)
[2020-11-03] MEDS: LACTATED RINGERS 1,000 ML IV SCH (09:59)
[2020-11-03 10:10] LABS: Albumin 1.8 G/DL (3.4-5.0); Bilirubin,Total 0.6 MG/DL (0.2-1.0); Calcium 7.9 MG/DL (8.5-10.1); Osmolality,Calculated 284.3 MOS/KG (273-304); Potassium 3.1 MMOL/L (3.5-5.1); Total Protein 5.4 G/DL (6.4-8.3)
[2020-11-03] MEDS ORDERED: POTASSIUM CHLORIDE 20 MEQ/15 ML UDCUP PEG PRN (10:30)
[2020-11-03] MEDS: ACETAMINOPHEN 325 MG TABLET PO PRN (11:25)
[2020-11-03] MEDS: CYCLOBENZAPRINE 10 MG TABLET PEG PRN ×2 (15:45→20:44)
[2020-11-03] MEDS: MELATONIN 3 MG TABLET PO PRN (20:44)
[2020-11-03] MEDS: INSULIN GLARGINE 100 UNIT/ML SUBCUT SCH (20:44)
[2020-11-03] MEDS: GABAPENTIN 50 MG/ML 30 ML/BOTTLE PEG SCH (20:45)
[2020-11-03] MEDS: FAMOTIDINE 20 MG TABLET PEG SCH (20:45)
[2020-11-04] MEDS: INSULIN LISPRO 100 UNIT/ML SUBCUT SCH ×6 (01:12→20:42)
[2020-11-04] MEDS: LACTATED RINGERS 1,000 ML IV SCH (06:26)
[2020-11-04] MEDS: CHOLECALCIFEROL 1,000 UNIT TABLET PO SCH (08:04)
[2020-11-04] MEDS: ZINC GLUCONATE 50 MG TABLET PO SCH (08:04)
[2020-11-04] MEDS: ASCORBIC ACID 500 MG TABLET PO SCH ×2 (08:04→20:42)
[2020-11-04] MEDS: LOSARTAN 25 MG TABLET PO SCH (08:04)
[2020-11-04] MEDS: FAMOTIDINE 20 MG TABLET PEG SCH ×2 (08:04→20:42)
[2020-11-04] MEDS: busPIRone 5 MG TABLET PO SCH ×2 (08:04→20:42)
[2020-11-04] MEDS: GABAPENTIN 50 MG/ML 30 ML/BOTTLE PEG SCH ×2 (08:05→20:43)
[2020-11-04] MEDS: methylPREDNISolone SOD SUC 40 MG/1 ML VIAL IV SCH (08:05)
[2020-11-04] MEDS: MENTHOL/ZINC OXIDE OINT 71 GM JAR TOP SCH ×2 (09:09→20:42)
[2020-11-04] MEDS: LEVOTHYROXINE 88 MCG TABLET PO SCH (09:10)
[2020-11-04] MEDS ORDERED: TUBERCULIN SKIN TEST 0.1 ML SYRINGE INTRADERM ONE (11:00)
[2020-11-04] MEDS: MORPHINE 4 MG/1 ML VIAL IV PRN ×2 (13:20→20:43)
[2020-11-04] MEDS: CYCLOBENZAPRINE 10 MG TABLET PEG PRN ×2 (16:57→20:42)
[2020-11-04] MEDS: MELATONIN 3 MG TABLET PO PRN (20:42)
[2020-11-04] MEDS: INSULIN GLARGINE 100 UNIT/ML SUBCUT SCH (20:43)
[2020-11-05] MEDS: INSULIN LISPRO 100 UNIT/ML SUBCUT SCH ×4 (00:04→11:22)
[2020-11-05] MEDS: MORPHINE 4 MG/1 ML VIAL IV PRN ×2 (02:15→11:21)
[2020-11-05] MEDS: LEVOTHYROXINE 88 MCG TABLET PO SCH (08:09)
[2020-11-05] MEDS: busPIRone 5 MG TABLET PO SCH (08:09)
[2020-11-05] MEDS: CYCLOBENZAPRINE 10 MG TABLET PEG PRN (08:09)
[2020-11-05] MEDS: methylPREDNISolone SOD SUC 40 MG/1 ML VIAL IV SCH (08:10)
[2020-11-05] MEDS: ZINC GLUCONATE 50 MG TABLET PO SCH (08:10)
[2020-11-05] MEDS: FAMOTIDINE 20 MG TABLET PEG SCH (08:10)
[2020-11-05] MEDS: ASCORBIC ACID 500 MG TABLET PO SCH (08:10)
[2020-11-05] MEDS: LOSARTAN 25 MG TABLET PO SCH (08:10)
[2020-11-05] MEDS: CHOLECALCIFEROL 1,000 UNIT TABLET PO SCH (08:10)
[2020-11-05] MEDS: GABAPENTIN 50 MG/ML 30 ML/BOTTLE PEG SCH (08:11)
[2020-11-05] MEDS: MENTHOL/ZINC OXIDE OINT 71 GM JAR TOP SCH (10:58)
[2020-11-05 11:29] VITALS: BP 139/75
== END 2020-11-05 13:23 | DRG 207 ==
LOC: EDUNIT# → EDBD → N.ED 10:49 → N.EDINP 13:06 → SUATTDRO 13:06 → N.CC 18:25 → N.5E 10-24 14:54
PROVIDERS: ADMIT Internal Medicine; ATTEND Family Medicine
PROC: EGDWPEG (ICD-10-PCS; 2020-10-31 06:05)

== ENCOUNTER 2020-11-08 12:24 | Inpatient (IN) ==
[2020-11-08] MEDS ORDERED: cefTRIAXone 1,000 MG in SODIUM CHLORIDE 0.9% 100 ML IV STA (12:54)
[2020-11-08] MEDS ORDERED: DEXAMETHASONE 4 MG/1 ML VIAL IV STA (12:54)
[2020-11-08 13:39] LABS: Allen Test Positive
[2020-11-08 13:40] LABS: ABG Base Excess 12.1 MMOL/L (-2.5-2.5); ABG HCO3 35.8 MMOL/L (20-26); ABG Oxygen Saturation 96.9 % (95-100); ABG PCO2 49.8 MM HG (35-48); ABG PH 7.484 (7.35-7.45); ABG PO2 82.3 MM HG (80-95); ABG TCO2 33.7 MMOL/L (23-27)
[2020-11-08 13:49] LABS: Basophils % 0.2 % (0.0-0.8); Eosinophils # 0.4 10*3/uL (0.0-0.87); Hematocrit 33.7 VOL% (35.7-47.0); Hemoglobin 10.2 GM/DL (12.0-16.0); Immature Granulocytes % 2.6 %; Immature Granulocytes Absolute 0.38 #; Lymphocytes # 1.3 10*3/uL (1.4-4.0); Lymphocytes % 8.7 % (21.3-54.2); Mean Corpuscular HGB Conc 30.3 GM/DL (32-36); Mean Corpuscular Volume 85.3 FL (87-102); Mean Platelet Volume 10.1 FL (9.6-12.0); Monocytes % 5.1 % (1.7-12.7); Neutrophils % 80.4 % (38.7-73.9); Platelet Count 182 T/CUMM (130-400); Red Blood Count 3.95 MC/CUMM (3.8-5.5); Red Cell Distribution Width 20.3 % (9.3-17.3); White Blood Count 14.8 T/CUMM (4-12)
[2020-11-08 14:21] LABS: Albumin 2.1 G/DL (3.4-5.0); Bilirubin,Total 0.7 MG/DL (0.2-1.0); CKMB % 7.1 %; Calcium 8.6 MG/DL (8.5-10.1); Osmolality,Calculated 280.7 MOS/KG (273-304); Potassium 3.3 MMOL/L (3.5-5.1)
[2020-11-08 14:22] LABS: Troponin I 0.093 NG/ML (0.00-0.045)
[2020-11-08] MEDS ORDERED: PIPERACILLIN/TAZOBACTAM 3,375 MG in SODIUM CHLORIDE 0.9% 100 ML IV STA (16:20)
[2020-11-08] MEDS ORDERED: ACETAMINOPHEN 325 MG TABLET PO PRN (16:20)
[2020-11-08] MEDS ORDERED: ONDANSETRON 4 MG/2 ML VIAL IV PRN (16:20)
[2020-11-08] MEDS: MORPHINE 4 MG/1 ML VIAL IV PRN (16:44)
[2020-11-08] MEDS: DOCUSATE SODIUM 100 MG CAPSULE PO SCH (21:00)
[2020-11-09] MEDS: MORPHINE 4 MG/1 ML VIAL IV PRN ×5 (00:12→21:48)
[2020-11-09] MEDS ORDERED: PANTOPRAZOLE 40 MG TABLET PO ONE (06:55)
[2020-11-09] MEDS: PANTOPRAZOLE 40 MG TABLET PO SCH (08:43)
[2020-11-09] MEDS: DOCUSATE SODIUM 100 MG CAPSULE PO SCH ×2 (08:43→21:50)
[2020-11-09] MEDS ORDERED: FUROSEMIDE 20 MG TABLET PO PRN (14:05)
[2020-11-09] MEDS ORDERED: ALUMINUM/MAGNES/SIMETH MAX STR 30 ML UDCUP PO PRN (14:05)
[2020-11-09] MEDS ORDERED: POTASSIUM CHLORIDE 20 MEQ/15 ML UDCUP PEG PRN (14:05)
[2020-11-09] MEDS ORDERED: ALBUTEROL 2.5 MG/3 ML NEB RESP TX PRN (14:05)
[2020-11-09] MEDS ORDERED: SKIN HEALING OINT (AQUAPHOR) 50 GM TUBE TOP PRN (14:05)
[2020-11-09] MEDS: ALBUTEROL 2.5 MG/3 ML NEB RESP TX SCH ×3 (15:39→23:15)
[2020-11-09] MEDS: DEXAMETHASONE 4 MG/1 ML VIAL IM SCH ×2 (16:06→22:11)
[2020-11-09] MEDS: INSULIN LISPRO 100 UNIT/ML SUBCUT SCH ×2 (17:10→21:48)
[2020-11-09] MEDS: ASPIRIN CHEW 81 MG TABLET PO SCH (21:45)
[2020-11-09] MEDS: glipiZIDE 5 MG TABLET PO SCH (21:46)
[2020-11-09] MEDS: GABAPENTIN 300 MG CAPSULE PO SCH (21:46)
[2020-11-09] MEDS: busPIRone 5 MG TABLET PO SCH (21:46)
[2020-11-09] MEDS: MELATONIN 3 MG TABLET PO PRN (21:48)
[2020-11-10] MEDS: ALBUTEROL 2.5 MG/3 ML NEB RESP TX SCH ×5 (03:10→19:58)
[2020-11-10] MEDS: DEXAMETHASONE 4 MG/1 ML VIAL IM SCH ×2 (05:51→17:03)
[2020-11-10] MEDS: MORPHINE 4 MG/1 ML VIAL IV PRN ×3 (05:51→17:03)
[2020-11-10] MEDS: LEVOTHYROXINE 88 MCG TABLET PO SCH ×2 (05:51→06:29)
[2020-11-10 06:55] LABS: Basophils % 0.2 % (0.0-0.8); Eosinophils % 0.1 % (0.00-10.9); Hemoglobin 9.4 GM/DL (12.0-16.0); Immature Granulocytes % 1.7 %; Immature Granulocytes Absolute 0.24 #; Lymphocytes # 1.9 10*3/uL (1.4-4.0); Lymphocytes % 12.8 % (21.3-54.2); Mean Corpuscular HGB Conc 30.3 GM/DL (32-36); Mean Corpuscular Volume 86.8 FL (87-102); Mean Platelet Volume 10.6 FL (9.6-12.0); Monocytes % 5.3 % (1.7-12.7); Neutrophils % 79.9 % (38.7-73.9); Platelet Count 204 T/CUMM (130-400); Red Blood Count 3.57 MC/CUMM (3.8-5.5); Red Cell Distribution Width 19.6 % (9.3-17.3); White Blood Count 14.5 T/CUMM (4-12)
[2020-11-10 07:41] LABS: Albumin 2.2 G/DL (3.4-5.0); Bilirubin,Total 0.6 MG/DL (0.2-1.0); Calcium 8.4 MG/DL (8.5-10.1); Osmolality,Calculated 297.7 MOS/KG (273-304); Potassium 4.6 MMOL/L (3.5-5.1); Thyroid Stimulating Hormone 0.391 uIU/ml (0.358-3.74); Total Protein 6.1 G/DL (6.4-8.3)
[2020-11-10] MEDS: LOSARTAN 25 MG TABLET PO SCH (09:19)
[2020-11-10] MEDS: PANTOPRAZOLE 40 MG TABLET PO SCH (09:19)
[2020-11-10] MEDS: INSULIN LISPRO 100 UNIT/ML SUBCUT SCH ×4 (09:19→22:00)
[2020-11-10] MEDS: GABAPENTIN 300 MG CAPSULE PO SCH ×2 (09:19→21:59)
[2020-11-10] MEDS: busPIRone 5 MG TABLET PO SCH ×2 (09:19→21:59)
[2020-11-10] MEDS: DOCUSATE SODIUM 100 MG CAPSULE PO SCH ×2 (09:19→21:59)
[2020-11-10] MEDS: glipiZIDE 5 MG TABLET PO SCH ×2 (09:19→21:59)
[2020-11-10] MEDS ORDERED: FUROSEMIDE 40 MG/4 ML VIAL IV ONE (09:54)
[2020-11-10] MEDS: cefTRIAXone 1,000 MG in SYRINGE 10 EACH IV SCH (11:58)
[2020-11-10] MEDS: ASPIRIN CHEW 81 MG TABLET PO SCH (21:59)
[2020-11-11] MEDS: INSULIN LISPRO 100 UNIT/ML SUBCUT SCH ×5 (00:03→21:59)
[2020-11-11] MEDS: DEXAMETHASONE 4 MG/1 ML VIAL IM SCH ×4 (00:03→21:59)
[2020-11-11] MEDS: ALBUTEROL 2.5 MG/3 ML NEB RESP TX SCH ×7 (00:20→23:22)
[2020-11-11] MEDS: MORPHINE 4 MG/1 ML VIAL IV PRN ×4 (01:42→17:44)
[2020-11-11] MEDS: HALOPERIDOL 5 MG/ML AMP IM PRN ×2 (02:53→16:33)
[2020-11-11 05:33] LABS: Basophils % 0.1 % (0.0-0.8); Eosinophils % 0.1 % (0.00-10.9); Hematocrit 31.6 VOL% (35.7-47.0); Hemoglobin 9.1 GM/DL (12.0-16.0); Immature Granulocytes % 1.8 %; Lymphocytes # 2.1 10*3/uL (1.4-4.0); Lymphocytes % 12.6 % (21.3-54.2); Mean Corpuscular HGB Conc 28.8 GM/DL (32-36); Mean Corpuscular Volume 90.3 FL (87-102); Mean Platelet Volume 10.5 FL (9.6-12.0); Monocytes % 6.6 % (1.7-12.7); Neutrophils % 78.8 % (38.7-73.9); Platelet Count 187 T/CUMM (130-400); Red Cell Distribution Width 19.7 % (9.3-17.3); White Blood Count 17.1 T/CUMM (4-12)
[2020-11-11 05:40] LABS: Calcium 8.4 MG/DL (8.5-10.1); Osmolality,Calculated 296.7 MOS/KG (273-304); Potassium 4.3 MMOL/L (3.5-5.1)
[2020-11-11 05:42] LABS: Anisocytosis 1+; Platelet Estimate Normal
[2020-11-11 05:43] LABS: Macrocytosis Slight
[2020-11-11] MEDS: LEVOTHYROXINE 88 MCG TABLET PO SCH (06:09)
[2020-11-11] MEDS: glipiZIDE 5 MG TABLET PO SCH ×2 (09:14→21:59)
[2020-11-11] MEDS: PANTOPRAZOLE 40 MG TABLET PO SCH (09:14)
[2020-11-11] MEDS: LOSARTAN 25 MG TABLET PO SCH (09:14)
[2020-11-11] MEDS: DOCUSATE SODIUM 100 MG CAPSULE PO SCH ×2 (09:14→21:59)
[2020-11-11] MEDS: GABAPENTIN 300 MG CAPSULE PO SCH ×2 (09:14→21:59)
[2020-11-11] MEDS: busPIRone 5 MG TABLET PO SCH ×2 (09:14→21:59)
[2020-11-11] MEDS: cefTRIAXone 1,000 MG in SYRINGE 10 EACH IV SCH (10:11)
[2020-11-11] MEDS: ASPIRIN CHEW 81 MG TABLET PO SCH (21:58)
[2020-11-11] MEDS: MELATONIN 3 MG TABLET PO PRN (21:59)
[2020-11-12] MEDS: ALBUTEROL 2.5 MG/3 ML NEB RESP TX SCH ×6 (04:08→23:58)
[2020-11-12] MEDS: HALOPERIDOL 5 MG/ML AMP IM PRN (04:39)
[2020-11-12] MEDS: LEVOTHYROXINE 88 MCG TABLET PO SCH (05:54)
[2020-11-12] MEDS: DEXAMETHASONE 4 MG/1 ML VIAL IM SCH ×2 (06:47→18:09)
[2020-11-12] MEDS: LOSARTAN 25 MG TABLET PO SCH (08:38)
[2020-11-12] MEDS: GABAPENTIN 300 MG CAPSULE PO SCH ×2 (08:39→20:31)
[2020-11-12] MEDS: PANTOPRAZOLE 40 MG TABLET PO SCH (08:39)
[2020-11-12] MEDS: busPIRone 5 MG TABLET PO SCH ×2 (08:39→20:31)
[2020-11-12] MEDS: DOCUSATE SODIUM 100 MG CAPSULE PO SCH ×2 (08:39→20:31)
[2020-11-12] MEDS: glipiZIDE 5 MG TABLET PO SCH ×2 (08:39→20:31)
[2020-11-12] MEDS: INSULIN LISPRO 100 UNIT/ML SUBCUT SCH ×4 (08:39→20:32)
[2020-11-12] MEDS: cefTRIAXone 1,000 MG in SYRINGE 10 EACH IV SCH (11:36)
[2020-11-12] MEDS: MORPHINE 4 MG/1 ML VIAL IV PRN (11:40)
[2020-11-12] MEDS: ASPIRIN CHEW 81 MG TABLET PO SCH (20:31)
[2020-11-13] MEDS: HALOPERIDOL 5 MG/ML AMP IM PRN (00:04)
[2020-11-13] MEDS: MORPHINE 4 MG/1 ML VIAL IV PRN ×4 (00:36→23:44)
[2020-11-13] MEDS: ALBUTEROL 2.5 MG/3 ML NEB RESP TX SCH ×5 (03:29→23:50)
[2020-11-13 05:48] LABS: Basophils % 0.1 % (0.0-0.8); Eosinophils % 0.3 % (0.00-10.9); Hematocrit 32.2 VOL% (35.7-47.0); Hemoglobin 9.8 GM/DL (12.0-16.0); Immature Granulocytes % 2.3 %; Immature Granulocytes Absolute 0.34 #; Lymphocytes # 2.4 10*3/uL (1.4-4.0); Lymphocytes % 16.2 % (21.3-54.2); Mean Corpuscular HGB Conc 30.4 GM/DL (32-36); Mean Corpuscular Volume 86.6 FL (87-102); Mean Platelet Volume 10.2 FL (9.6-12.0); Neutrophils % 75.1 % (38.7-73.9); Platelet Count 166 T/CUMM (130-400); Red Blood Count 3.72 MC/CUMM (3.8-5.5); Red Cell Distribution Width 19.4 % (9.3-17.3); White Blood Count 14.5 T/CUMM (4-12)
[2020-11-13 06:06] LABS: Calcium 8.7 MG/DL (8.5-10.1); Potassium 3.9 MMOL/L (3.5-5.1)
[2020-11-13] MEDS: DEXAMETHASONE 4 MG/1 ML VIAL IM SCH ×2 (06:50→18:37)
[2020-11-13] MEDS: LEVOTHYROXINE 88 MCG TABLET PO SCH (06:50)
[2020-11-13] MEDS: GABAPENTIN 300 MG CAPSULE PO SCH ×2 (08:26→21:29)
[2020-11-13] MEDS: DOCUSATE SODIUM 100 MG CAPSULE PO SCH ×2 (08:26→21:28)
[2020-11-13] MEDS: INSULIN LISPRO 100 UNIT/ML SUBCUT SCH ×4 (08:26→21:29)
[2020-11-13] MEDS: LOSARTAN 25 MG TABLET PO SCH (08:27)
[2020-11-13] MEDS: busPIRone 5 MG TABLET PO SCH ×2 (08:27→21:29)
[2020-11-13] MEDS: glipiZIDE 5 MG TABLET PO SCH ×2 (08:27→21:29)
[2020-11-13] MEDS: PANTOPRAZOLE 40 MG TABLET PO SCH (08:27)
[2020-11-13] MEDS: cefTRIAXone 1,000 MG in SYRINGE 10 EACH IV SCH (10:47)
[2020-11-13] MEDS ORDERED: MORPHINE 4 MG/1 ML VIAL IV ONE (10:59)
[2020-11-13] MEDS: ASPIRIN CHEW 81 MG TABLET PO SCH (21:28)
[2020-11-13] MEDS: MELATONIN 3 MG TABLET PO PRN (23:44)
[2020-11-14] MEDS: ALBUTEROL 2.5 MG/3 ML NEB RESP TX SCH ×5 (03:22→19:06)
[2020-11-14] MEDS: DEXAMETHASONE 4 MG/1 ML VIAL IM SCH (06:21)
[2020-11-14] MEDS: LEVOTHYROXINE 88 MCG TABLET PO SCH (06:21)
[2020-11-14] MEDS: busPIRone 5 MG TABLET PO SCH ×2 (08:44→20:41)
[2020-11-14] MEDS: PANTOPRAZOLE 40 MG TABLET PO SCH (08:45)
[2020-11-14] MEDS: glipiZIDE 5 MG TABLET PO SCH ×2 (08:45→20:41)
[2020-11-14] MEDS: MORPHINE 4 MG/1 ML VIAL IV PRN ×3 (08:45→21:32)
[2020-11-14] MEDS: GABAPENTIN 300 MG CAPSULE PO SCH ×2 (08:45→20:41)
[2020-11-14] MEDS: DOCUSATE SODIUM 100 MG CAPSULE PO SCH ×2 (08:45→20:42)
[2020-11-14] MEDS: LOSARTAN 25 MG TABLET PO SCH (08:45)
[2020-11-14] MEDS: INSULIN LISPRO 100 UNIT/ML SUBCUT SCH ×4 (08:49→20:41)
[2020-11-14] MEDS: cefTRIAXone 1,000 MG in SYRINGE 10 EACH IV SCH (10:27)
[2020-11-14] MEDS: HALOPERIDOL 5 MG/ML AMP IM PRN (16:57)
[2020-11-14] MEDS: ASPIRIN CHEW 81 MG TABLET PO SCH (20:41)
[2020-11-15] MEDS: ALBUTEROL 2.5 MG/3 ML NEB RESP TX SCH ×6 (00:31→18:21)
[2020-11-15] MEDS: HALOPERIDOL 5 MG/ML AMP IM PRN ×2 (05:06→19:53)
[2020-11-15] MEDS: LEVOTHYROXINE 88 MCG TABLET PO SCH (05:38)
[2020-11-15 07:07] LABS: Basophils % 0.2 % (0.0-0.8); Eosinophils # 0.4 10*3/uL (0.0-0.87); Eosinophils % 2.5 % (0.00-10.9); Hematocrit 33.8 VOL% (35.7-47.0); Hemoglobin 10.4 GM/DL (12.0-16.0); Immature Granulocytes % 2.5 %; Immature Granulocytes Absolute 0.44 #; Lymphocytes # 3.4 10*3/uL (1.4-4.0); Lymphocytes % 19.5 % (21.3-54.2); Mean Corpuscular HGB Conc 30.8 GM/DL (32-36); Mean Platelet Volume 10.4 FL (9.6-12.0); Monocytes % 5.4 % (1.7-12.7); NRBC # 0.02 10*3/uL; Neutrophils % 69.9 % (38.7-73.9); Platelet Count 152 T/CUMM (130-400); Red Blood Count 3.93 MC/CUMM (3.8-5.5); Red Cell Distribution Width 20.2 % (9.3-17.3); White Blood Count 17.3 T/CUMM (4-12)
[2020-11-15 07:35] LABS: Albumin 2.5 G/DL (3.4-5.0); Bilirubin,Total 0.6 MG/DL (0.2-1.0); Calcium 8.4 MG/DL (8.5-10.1); Osmolality,Calculated 283.5 MOS/KG (273-304); Potassium 3.5 MMOL/L (3.5-5.1); Total Protein 5.7 G/DL (6.4-8.3)
[2020-11-15] MEDS: GABAPENTIN 300 MG CAPSULE PO SCH ×2 (08:52→20:37)
[2020-11-15] MEDS: INSULIN LISPRO 100 UNIT/ML SUBCUT SCH ×4 (08:52→22:07)
[2020-11-15] MEDS: DOCUSATE SODIUM 100 MG CAPSULE PO SCH ×2 (08:52→20:37)
[2020-11-15] MEDS: busPIRone 5 MG TABLET PO SCH ×2 (08:53→20:38)
[2020-11-15] MEDS: DEXAMETHASONE 4 MG/1 ML VIAL IM SCH (08:53)
[2020-11-15] MEDS: LOSARTAN 25 MG TABLET PO SCH (08:53)
[2020-11-15] MEDS: PANTOPRAZOLE 40 MG TABLET PO SCH (08:53)
[2020-11-15] MEDS: glipiZIDE 5 MG TABLET PO SCH ×2 (08:53→20:37)
[2020-11-15] MEDS: MORPHINE 4 MG/1 ML VIAL IV PRN ×4 (08:54→23:42)
[2020-11-15] MEDS: cefTRIAXone 1,000 MG in SYRINGE 10 EACH IV SCH (10:33)
[2020-11-15 12:07] LABS: INR 1.1; PT Patient Result 11.6 SECS (9.8-11.9); Partial Thromboplastin Time 23.4 SECS (23.9-33.8)
[2020-11-15] MEDS: ASPIRIN CHEW 81 MG TABLET PO SCH (20:37)
[2020-11-16] MEDS: MELATONIN 3 MG TABLET PO PRN (01:02)
[2020-11-16] MEDS: ALBUTEROL 2.5 MG/3 ML NEB RESP TX SCH ×5 (01:57→19:37)
[2020-11-16] MEDS: MORPHINE 4 MG/1 ML VIAL IV PRN (03:37)
[2020-11-16] MEDS: INSULIN LISPRO 100 UNIT/ML SUBCUT SCH ×4 (08:57→21:21)
[2020-11-16] MEDS: busPIRone 5 MG TABLET PO SCH ×2 (08:57→20:36)
[2020-11-16] MEDS: LEVOTHYROXINE 88 MCG TABLET PO SCH (08:57)
[2020-11-16] MEDS: DOCUSATE SODIUM 100 MG CAPSULE PO SCH ×2 (08:58→20:36)
[2020-11-16] MEDS: GABAPENTIN 300 MG CAPSULE PO SCH ×2 (08:58→20:36)
[2020-11-16] MEDS: LOSARTAN 25 MG TABLET PO SCH (08:58)
[2020-11-16] MEDS: glipiZIDE 5 MG TABLET PO SCH ×2 (08:58→20:36)
[2020-11-16] MEDS: DEXAMETHASONE 4 MG/1 ML VIAL IM SCH (08:58)
[2020-11-16] MEDS: PANTOPRAZOLE 40 MG TABLET PO SCH (08:58)
[2020-11-16] MEDS: cefTRIAXone 1,000 MG in SYRINGE 10 EACH IV SCH (10:22)
[2020-11-16] MEDS: ASPIRIN CHEW 81 MG TABLET PO SCH (20:36)
[2020-11-16] MEDS: HALOPERIDOL 5 MG/ML AMP IM PRN (20:36)
[2020-11-17] MEDS: ALBUTEROL 2.5 MG/3 ML NEB RESP TX SCH ×8 (00:45→23:54)
[2020-11-17] MEDS: LEVOTHYROXINE 88 MCG TABLET PO SCH (06:12)
[2020-11-17] MEDS: INSULIN LISPRO 100 UNIT/ML SUBCUT SCH ×4 (07:26→21:44)
[2020-11-17] MEDS: HALOPERIDOL 5 MG/ML AMP IM PRN (07:27)
[2020-11-17] MEDS: LOSARTAN 25 MG TABLET PO SCH (08:04)
[2020-11-17] MEDS: GABAPENTIN 300 MG CAPSULE PO SCH ×2 (08:04→21:43)
[2020-11-17] MEDS: glipiZIDE 5 MG TABLET PO SCH ×2 (08:04→21:44)
[2020-11-17] MEDS: DOCUSATE SODIUM 100 MG CAPSULE PO SCH ×2 (08:04→21:44)
[2020-11-17] MEDS: busPIRone 5 MG TABLET PO SCH ×2 (08:04→21:43)
[2020-11-17] MEDS: DEXAMETHASONE 4 MG/1 ML VIAL IM SCH (08:05)
[2020-11-17] MEDS: PANTOPRAZOLE 40 MG TABLET PO SCH (08:05)
[2020-11-17] MEDS: MORPHINE 4 MG/1 ML VIAL IV PRN ×3 (12:41→21:42)
[2020-11-17] MEDS: cefTRIAXone 1,000 MG in SYRINGE 10 EACH IV SCH (13:01)
[2020-11-17] MEDS: ASPIRIN CHEW 81 MG TABLET PO SCH (21:44)
[2020-11-18] MEDS: MORPHINE 4 MG/1 ML VIAL IV PRN ×3 (02:56→15:00)
[2020-11-18] MEDS: ALBUTEROL 2.5 MG/3 ML NEB RESP TX SCH ×5 (03:39→20:15)
[2020-11-18] MEDS: LEVOTHYROXINE 88 MCG TABLET PO SCH (05:51)
[2020-11-18 05:53] LABS: Basophils % 0.2 % (0.0-0.8); Eosinophils # 0.6 10*3/uL (0.0-0.87); Eosinophils % 3.6 % (0.00-10.9); Hematocrit 35.7 VOL% (35.7-47.0); Hemoglobin 11.4 GM/DL (12.0-16.0); Immature Granulocytes % 1.8 %; Lymphocytes # 3.8 10*3/uL (1.4-4.0); Lymphocytes % 22.7 % (21.3-54.2); Mean Corpuscular HGB Conc 31.9 GM/DL (32-36); Mean Corpuscular Volume 83.8 FL (87-102); Mean Platelet Volume 11.3 FL (9.6-12.0); Monocytes % 7.2 % (1.7-12.7); Neutrophils % 64.5 % (38.7-73.9); Platelet Count 156 T/CUMM (130-400); Red Blood Count 4.26 MC/CUMM (3.8-5.5); Red Cell Distribution Width 20.3 % (9.3-17.3); White Blood Count 16.8 T/CUMM (4-12)
[2020-11-18 06:14] LABS: Albumin 2.5 G/DL (3.4-5.0); Calcium 8.9 MG/DL (8.5-10.1); Osmolality,Calculated 288.3 MOS/KG (273-304); Potassium 3.6 MMOL/L (3.5-5.1); Total Protein 5.9 G/DL (6.4-8.3)
[2020-11-18] MEDS: INSULIN LISPRO 100 UNIT/ML SUBCUT SCH ×4 (08:05→21:41)
[2020-11-18] MEDS: DOCUSATE SODIUM 100 MG CAPSULE PO SCH ×2 (08:06→21:03)
[2020-11-18] MEDS: LOSARTAN 25 MG TABLET PO SCH (08:06)
[2020-11-18] MEDS: predniSONE 20 MG TABLET PO SCH (08:06)
[2020-11-18] MEDS: GABAPENTIN 300 MG CAPSULE PO SCH ×2 (08:06→21:01)
[2020-11-18] MEDS: PANTOPRAZOLE 40 MG TABLET PO SCH (08:07)
[2020-11-18] MEDS: glipiZIDE 5 MG TABLET PO SCH ×2 (08:07→21:02)
[2020-11-18] MEDS: busPIRone 5 MG TABLET PO SCH ×2 (08:07→21:03)
[2020-11-18] MEDS: ASPIRIN CHEW 81 MG TABLET PO SCH (21:01)
[2020-11-19] MEDS: ALBUTEROL 2.5 MG/3 ML NEB RESP TX SCH ×5 (01:02→18:56)
[2020-11-19] MEDS: MORPHINE 4 MG/1 ML VIAL IV PRN ×2 (04:41→16:21)
[2020-11-19] MEDS: LEVOTHYROXINE 88 MCG TABLET PO SCH (06:16)
[2020-11-19] MEDS: INSULIN LISPRO 100 UNIT/ML SUBCUT SCH ×4 (10:30→20:44)
[2020-11-19] MEDS: busPIRone 5 MG TABLET PO SCH ×2 (10:31→20:43)
[2020-11-19] MEDS: LOSARTAN 25 MG TABLET PO SCH (10:31)
[2020-11-19] MEDS: GABAPENTIN 300 MG CAPSULE PO SCH ×2 (10:32→20:43)
[2020-11-19] MEDS: PANTOPRAZOLE 40 MG TABLET PO SCH (10:32)
[2020-11-19] MEDS: predniSONE 20 MG TABLET PO SCH (10:32)
[2020-11-19] MEDS: glipiZIDE 5 MG TABLET PO SCH ×2 (10:32→20:43)
[2020-11-19] MEDS: DOCUSATE SODIUM 100 MG CAPSULE PO SCH (16:57)
[2020-11-19] MEDS: ASPIRIN CHEW 81 MG TABLET PO SCH (20:43)
[2020-11-19] MEDS: DOCUSATE SODIUM 100 MG/10 ML UDCUP PO SCH (20:44)
[2020-11-20] MEDS: ALBUTEROL 2.5 MG/3 ML NEB RESP TX SCH ×4 (00:23→12:33)
[2020-11-20] MEDS: MORPHINE 4 MG/1 ML VIAL IV PRN (00:47)
[2020-11-20] MEDS: LEVOTHYROXINE 88 MCG TABLET PO SCH (05:50)
[2020-11-20 06:14] LABS: Basophils # 0.1 10*3/uL (0.0-0.2); Basophils % 0.3 % (0.0-0.8); Eosinophils # 0.5 10*3/uL (0.0-0.87); Eosinophils % 2.4 % (0.00-10.9); Hematocrit 34.5 VOL% (35.7-47.0); Hemoglobin 10.9 GM/DL (12.0-16.0); Immature Granulocytes % 1.3 %; Immature Granulocytes Absolute 0.24 #; Lymphocytes # 4.5 10*3/uL (1.4-4.0); Lymphocytes % 23.8 % (21.3-54.2); Mean Corpuscular HGB Conc 31.6 GM/DL (32-36); Mean Platelet Volume 10.8 FL (9.6-12.0); Neutrophils % 64.2 % (38.7-73.9); Platelet Count 149 T/CUMM (130-400); Red Blood Count 4.06 MC/CUMM (3.8-5.5); Red Cell Distribution Width 19.9 % (9.3-17.3); White Blood Count 18.8 T/CUMM (4-12)
[2020-11-20 06:35] LABS: Hypochromasia Slight; Platelet Estimate Adequate
[2020-11-20 06:42] LABS: Albumin 2.4 G/DL (3.4-5.0); Bilirubin,Total 1.3 MG/DL (0.2-1.0); Calcium 8.8 MG/DL (8.5-10.1); Osmolality,Calculated 282.4 MOS/KG (273-304); Potassium 3.7 MMOL/L (3.5-5.1); Total Protein 5.9 G/DL (6.4-8.3)
[2020-11-20] MEDS ORDERED: MORPHINE ER 30 MG TABLET PO SCH (07:00)
[2020-11-20] MEDS: LOSARTAN 25 MG TABLET PO SCH (09:51)
[2020-11-20] MEDS: busPIRone 5 MG TABLET PO SCH (09:52)
[2020-11-20] MEDS: predniSONE 20 MG TABLET PO SCH (09:52)
[2020-11-20] MEDS: glipiZIDE 5 MG TABLET PO SCH (09:52)
[2020-11-20] MEDS: DOCUSATE SODIUM 100 MG/10 ML UDCUP PO SCH (09:52)
[2020-11-20] MEDS: GABAPENTIN 300 MG CAPSULE PO SCH (09:52)
[2020-11-20] MEDS: PANTOPRAZOLE 40 MG TABLET PO SCH (09:53)
[2020-11-20] MEDS: INSULIN LISPRO 100 UNIT/ML SUBCUT SCH ×2 (09:53→15:18)
[2020-11-20] MEDS ORDERED: GLUCAGON 1 MG VIAL IM PRN (10:53)
[2020-11-20] MEDS ORDERED: DEXTROSE 50% 25 GM/50 ML VIAL IV PRN (10:53)
[2020-11-20] MEDS ORDERED: TUBERCULIN SKIN TEST 0.1 ML SYRINGE INTRADERM ONE (12:43)
[2020-11-20 13:34] VITALS: BP 125/61
== END 2020-11-20 15:05 | disposition swing bed (61) | DRG 177 ==
LOC: EDBD → EDUNIT# → N.ED 12:24 → N.EDINP 15:14 → N.TELEN 17:53
PROVIDERS: ADMIT Family Medicine; ATTEND Family Medicine

== ENCOUNTER 2020-11-28 15:35 | Inpatient (IN) ==
[2020-11-28] MEDS ORDERED: ONDANSETRON 4 MG/2 ML VIAL ONE (16:56)
[2020-11-28] MEDS ORDERED: MORPHINE 4 MG/1 ML VIAL ONE (16:57)
[2020-11-28] MEDS ORDERED: MORPHINE 4 MG/1 ML VIAL IV STA (17:10)
[2020-11-28] MEDS ORDERED: ONDANSETRON 4 MG/2 ML VIAL IV STA (17:10)
[2020-11-28 17:18] LABS: Basophils % 0.2 % (0.0-0.8); Eosinophils # 0.5 10*3/uL (0.0-0.87); Eosinophils % 2.7 % (0.00-10.9); Hematocrit 39.4 VOL% (35.7-47.0); Hemoglobin 12.2 GM/DL (12.0-16.0); Immature Granulocytes % 1.3 %; Immature Granulocytes Absolute 0.26 #; Lymphocytes # 2.8 10*3/uL (1.4-4.0); Lymphocytes % 14.2 % (21.3-54.2); Mean Corpuscular Volume 84.9 FL (87-102); Monocytes % 6.1 % (1.7-12.7); Neutrophils % 75.5 % (38.7-73.9); Platelet Count 181 T/CUMM (130-400); Red Blood Count 4.64 MC/CUMM (3.8-5.5); Red Cell Distribution Width 18.6 % (9.3-17.3); White Blood Count 19.6 T/CUMM (4-12)
[2020-11-28 17:34] LABS: Albumin 2.2 G/DL (3.4-5.0); Bilirubin,Total 0.7 MG/DL (0.2-1.0); CKMB % 3.7 %; Calcium 8.6 MG/DL (8.5-10.1); Osmolality,Calculated 278.4 MOS/KG (273-304)
[2020-11-28 17:37] LABS: Troponin I 0.07 NG/ML (0.00-0.045)
[2020-11-28 17:38] LABS: INR 1.1; PT Patient Result 11.3 SECS (9.8-11.9); Partial Thromboplastin Time 25.8 SECS (23.9-33.8)
[2020-11-28] MEDS ORDERED: SODIUM CHLORIDE 0.9% 1,000 ML IV STA (17:41)
[2020-11-28 18:40] LABS: Bacteria,Urine Many /HPF (Few); Bilirubin,Urine Negative (Negative); Blood, Urine Negative (Negative); Glucose,Urine (UA) Negative (Negative); Ketones,Urine Negative (Negative); Mucus,Urine Many /LPF (Occasional); Nitrite,Urine Negative (Negative); Protein,Urine 30 MG/DL; RBC,Urine 11 /HPF (0-4); Renal Epithelial Cells,Urine Few /HPF (<1); Urine Appearance CLOUDY (Clear); Urine Color Amber (Yellow); Urine Specific Gravity 1.016 (1.001-1.035); Urine Urobilinogen < 2.0 EU/DL (0.2-1.0); WBC,Urine 605 /HPF (0-6)
[2020-11-28] MEDS ORDERED: cefTRIAXone 1,000 MG in SODIUM CHLORIDE 0.9% 100 ML IV STA (18:47)
[2020-11-28] MEDS ORDERED: ONDANSETRON 4 MG/2 ML VIAL IV PRN (19:33)
[2020-11-28] MEDS ORDERED: ACETAMINOPHEN 325 MG TABLET PO PRN (19:33)
[2020-11-28] MEDS ORDERED: DEXTROSE 50% 25 GM/50 ML VIAL IV PRN (20:17)
[2020-11-28] MEDS ORDERED: GLUCAGON 1 MG VIAL IM PRN (20:17)
[2020-11-28] MEDS: methylPREDNISolone SOD SUC 40 MG/1 ML VIAL IV SCH (21:57)
[2020-11-28] MEDS: APIXABAN 5 MG TABLET PO SCH (22:01)
[2020-11-28] MEDS: SODIUM CHLORIDE 0.9% 1,000 ML IV SCH (22:01)
[2020-11-28] MEDS: MORPHINE ER 15 MG TABLET PO SCH (22:01)
[2020-11-28] MEDS: INSULIN LISPRO 100 UNIT/ML SUBCUT SCH (22:02)
[2020-11-29] MEDS: methylPREDNISolone SOD SUC 40 MG/1 ML VIAL IV SCH ×2 (04:41→11:59)
[2020-11-29 04:59] LABS: Basophils % 0.2 % (0.0-0.8); Eosinophils % 0.2 % (0.00-10.9); Hematocrit 39.1 VOL% (35.7-47.0); Hemoglobin 11.9 GM/DL (12.0-16.0); Immature Granulocytes % 1.5 %; Immature Granulocytes Absolute 0.28 #; Lymphocytes # 1.4 10*3/uL (1.4-4.0); Lymphocytes % 7.3 % (21.3-54.2); Mean Corpuscular HGB Conc 30.4 GM/DL (32-36); Mean Corpuscular Volume 87.3 FL (87-102); Mean Platelet Volume 10.4 FL (9.6-12.0); Monocytes % 2.4 % (1.7-12.7); Neutrophils % 88.4 % (38.7-73.9); Platelet Count 155 T/CUMM (130-400); Red Blood Count 4.48 MC/CUMM (3.8-5.5); Red Cell Distribution Width 18.1 % (9.3-17.3); White Blood Count 19.1 T/CUMM (4-12)
[2020-11-29 05:25] LABS: Albumin 2.2 G/DL (3.4-5.0); Bilirubin,Total 0.7 MG/DL (0.2-1.0); Calcium 8.4 MG/DL (8.5-10.1); Potassium 4.9 MMOL/L (3.5-5.1); Total Protein 5.7 G/DL (5.0-7.5)
[2020-11-29] MEDS: SODIUM CHLORIDE 0.9% 1,000 ML IV SCH ×3 (07:07→16:10)
[2020-11-29] MEDS: INSULIN LISPRO 100 UNIT/ML SUBCUT SCH ×4 (08:30→21:05)
[2020-11-29] MEDS: APIXABAN 5 MG TABLET PO SCH ×2 (08:30→21:05)
[2020-11-29] MEDS: PANTOPRAZOLE 40 MG TABLET PO SCH (08:30)
[2020-11-29] MEDS: cefTRIAXone 1,000 MG in SYRINGE 1 EACH IV SCH ×2 (08:47→21:06)
[2020-11-29] MEDS: MORPHINE ER 15 MG TABLET PO SCH (08:47)
[2020-11-29] MEDS: MORPHINE ER 30 MG TABLET PO SCH (21:05)
[2020-11-30] MEDS: SODIUM CHLORIDE 0.9% 1,000 ML IV SCH ×2 (04:17→13:31)
[2020-11-30 05:06] LABS: Basophils % 0.2 % (0.0-0.8); Eosinophils % 0.1 % (0.00-10.9); Hematocrit 34.9 VOL% (35.7-47.0); Hemoglobin 10.9 GM/DL (12.0-16.0); Immature Granulocytes % 1.1 %; Immature Granulocytes Absolute 0.22 #; Lymphocytes # 1.7 10*3/uL (1.4-4.0); Lymphocytes % 8.7 % (21.3-54.2); Mean Corpuscular HGB Conc 31.2 GM/DL (32-36); Mean Corpuscular Volume 84.7 FL (87-102); Mean Platelet Volume 10.5 FL (9.6-12.0); Monocytes % 5.2 % (1.7-12.7); Neutrophils % 84.7 % (38.7-73.9); Platelet Count 155 T/CUMM (130-400); Red Blood Count 4.12 MC/CUMM (3.8-5.5); Red Cell Distribution Width 17.6 % (9.3-17.3); White Blood Count 19.3 T/CUMM (4-12)
[2020-11-30] MEDS: cefTRIAXone 1,000 MG in SYRINGE 1 EACH IV SCH ×2 (08:09→21:57)
[2020-11-30] MEDS: PANTOPRAZOLE 40 MG TABLET PO SCH (08:10)
[2020-11-30] MEDS: INSULIN LISPRO 100 UNIT/ML SUBCUT SCH ×3 (08:10→16:19)
[2020-11-30] MEDS: MORPHINE ER 30 MG TABLET PO SCH ×2 (08:10→21:58)
[2020-11-30] MEDS: APIXABAN 5 MG TABLET PO SCH ×2 (08:10→21:58)
[2020-11-30] MEDS: hydrOXYzine HCL 10 MG TABLET PO PRN ×2 (14:50→21:58)
[2020-11-30] MEDS: INSULIN GLARGINE 100 UNIT/ML SUBCUT SCH (21:57)
[2020-12-01] MEDS: INSULIN LISPRO 100 UNIT/ML SUBCUT SCH ×5 (01:42→20:59)
[2020-12-01 06:27] LABS: Bilirubin,Total 0.4 MG/DL (0.2-1.0); Calcium 8.2 MG/DL (8.5-10.1); Osmolality,Calculated 283.3 MOS/KG (273-304); Potassium 3.4 MMOL/L (3.5-5.1); Total Protein 5.3 G/DL (5.0-7.5)
[2020-12-01] MEDS: LEVOTHYROXINE 88 MCG TABLET PO SCH (06:32)
[2020-12-01] MEDS: cefTRIAXone 1,000 MG in SYRINGE 1 EACH IV SCH ×2 (08:47→20:41)
[2020-12-01] MEDS: PANTOPRAZOLE 40 MG TABLET PO SCH (08:48)
[2020-12-01] MEDS: MORPHINE ER 30 MG TABLET PO SCH ×2 (08:48→20:18)
[2020-12-01] MEDS: LOSARTAN 25 MG TABLET PO SCH (08:48)
[2020-12-01] MEDS: APIXABAN 5 MG TABLET PO SCH ×2 (08:49→20:18)
[2020-12-01] MEDS: SODIUM CHLORIDE 0.9% 1,000 ML IV SCH (10:00)
[2020-12-01] MEDS: fentaNYL 12 MCG/HR PATCH TRANSDERM SCH (12:20)
[2020-12-01] MEDS: SODIUM HYPOCHLORITE 0.25% IRRIG 473 ML BOTTLE TOP SCH (14:25)
[2020-12-01] MEDS: INSULIN GLARGINE 100 UNIT/ML SUBCUT SCH (21:09)
[2020-12-02 06:39] LABS: Basophils % 0.3 % (0.0-0.8); Eosinophils # 0.8 10*3/uL (0.0-0.87); Eosinophils % 6.9 % (0.00-10.9); Hematocrit 34.9 VOL% (35.7-47.0); Hemoglobin 10.6 GM/DL (12.0-16.0); Immature Granulocytes % 0.8 %; Lymphocytes # 2.7 10*3/uL (1.4-4.0); Lymphocytes % 22.3 % (21.3-54.2); Mean Corpuscular HGB Conc 30.4 GM/DL (32-36); Mean Platelet Volume 9.8 FL (9.6-12.0); Monocytes % 8.9 % (1.7-12.7); Neutrophils % 60.8 % (38.7-73.9); Platelet Count 153 T/CUMM (130-400); Red Blood Count 4.01 MC/CUMM (3.8-5.5); Red Cell Distribution Width 17.5 % (9.3-17.3); White Blood Count 11.9 T/CUMM (4-12)
[2020-12-02 07:00] LABS: Calcium 8.4 MG/DL (8.5-10.1); Osmolality,Calculated 273.7 MOS/KG (273-304); Potassium 3.6 MMOL/L (3.5-5.1)
[2020-12-02] MEDS: LEVOTHYROXINE 88 MCG TABLET PO SCH (07:21)
[2020-12-02] MEDS: INSULIN LISPRO 100 UNIT/ML SUBCUT SCH ×4 (07:28→20:01)
[2020-12-02] MEDS: SODIUM CHLORIDE 0.9% 1,000 ML IV SCH (09:51)
[2020-12-02] MEDS: MORPHINE ER 30 MG TABLET PO SCH ×2 (09:51→22:12)
[2020-12-02] MEDS: MULTIVITAMIN (CENTRUM) TABLET PO SCH (09:52)
[2020-12-02] MEDS: PANTOPRAZOLE 40 MG TABLET PO SCH (09:52)
[2020-12-02] MEDS: APIXABAN 5 MG TABLET PO SCH ×2 (09:52→22:12)
[2020-12-02] MEDS: LOSARTAN 25 MG TABLET PO SCH (09:52)
[2020-12-02] MEDS: cefTRIAXone 1,000 MG in SYRINGE 1 EACH IV SCH ×2 (09:53→22:20)
[2020-12-02] MEDS: SODIUM HYPOCHLORITE 0.25% IRRIG 473 ML BOTTLE TOP SCH (10:20)
[2020-12-02 18:32] LABS: Bacteria,Urine Occasional /HPF (Few); Bilirubin,Urine Negative (Negative); Blood, Urine Negative (Negative); Glucose,Urine (UA) Negative (Negative); Ketones,Urine Negative (Negative); Mucus,Urine Occasional /LPF (Occasional); Nitrite,Urine Negative (Negative); Protein,Urine Negative; RBC,Urine 6 /HPF (0-4); Squamous Epithelial Cell,Urine Occasional /HPF (0-10); Urine Appearance Slightly Hazy (Clear); Urine Color Yellow (Yellow); Urine Urobilinogen < 2.0 EU/DL (0.2-1.0); WBC,Urine 31 /HPF (0-6)
[2020-12-02] MEDS: INSULIN GLARGINE 100 UNIT/ML SUBCUT SCH (22:30)
[2020-12-03] MEDS: LEVOTHYROXINE 88 MCG TABLET PO SCH (05:53)
[2020-12-03] MEDS: INSULIN LISPRO 100 UNIT/ML SUBCUT SCH ×4 (08:52→21:09)
[2020-12-03] MEDS: MULTIVITAMIN (CENTRUM) TABLET PO SCH (08:53)
[2020-12-03] MEDS: PANTOPRAZOLE 40 MG TABLET PO SCH (08:53)
[2020-12-03] MEDS: APIXABAN 5 MG TABLET PO SCH ×2 (08:53→20:40)
[2020-12-03] MEDS: MORPHINE ER 30 MG TABLET PO SCH ×2 (08:54→20:40)
[2020-12-03] MEDS: LOSARTAN 25 MG TABLET PO SCH (08:54)
[2020-12-03] MEDS: cefTRIAXone 1,000 MG in SYRINGE 1 EACH IV SCH (08:55)
[2020-12-03] MEDS: SODIUM HYPOCHLORITE 0.25% IRRIG 473 ML BOTTLE TOP SCH (12:00)
[2020-12-03] MEDS: INSULIN GLARGINE 100 UNIT/ML SUBCUT SCH (21:09)
[2020-12-04] MEDS: LEVOTHYROXINE 88 MCG TABLET PO SCH (06:10)
[2020-12-04] MEDS: INSULIN LISPRO 100 UNIT/ML SUBCUT SCH ×4 (08:13→21:43)
[2020-12-04] MEDS: LOSARTAN 25 MG TABLET PO SCH (09:24)
[2020-12-04] MEDS: MULTIVITAMIN (CENTRUM) TABLET PO SCH (09:24)
[2020-12-04] MEDS: PANTOPRAZOLE 40 MG TABLET PO SCH (09:25)
[2020-12-04] MEDS: MORPHINE ER 30 MG TABLET PO SCH ×2 (09:25→20:53)
[2020-12-04] MEDS: SODIUM HYPOCHLORITE 0.25% IRRIG 473 ML BOTTLE TOP SCH (09:25)
[2020-12-04] MEDS: APIXABAN 5 MG TABLET PO SCH ×2 (09:25→20:53)
[2020-12-04] MEDS: fentaNYL 12 MCG/HR PATCH TRANSDERM SCH (09:36)
[2020-12-04] MEDS: cefTRIAXone 1,000 MG in SYRINGE 1 EACH IV SCH (09:36)
[2020-12-04 17:50] LABS: Thyroid Stimulating Hormone 2.14 uIU/ml (0.358-3.74)
[2020-12-04] MEDS: INSULIN GLARGINE 100 UNIT/ML SUBCUT SCH (21:44)
[2020-12-05] MEDS: LEVOTHYROXINE 88 MCG TABLET PO SCH (05:41)
[2020-12-05] MEDS: LOSARTAN 25 MG TABLET PO SCH (09:01)
[2020-12-05] MEDS: APIXABAN 5 MG TABLET PO SCH (09:01)
[2020-12-05] MEDS: INSULIN LISPRO 100 UNIT/ML SUBCUT SCH ×2 (09:01→12:07)
[2020-12-05] MEDS: cefTRIAXone 1,000 MG in SYRINGE 1 EACH IV SCH (09:02)
[2020-12-05] MEDS: MULTIVITAMIN (CENTRUM) TABLET PO SCH (09:02)
[2020-12-05] MEDS: PANTOPRAZOLE 40 MG TABLET PO SCH (09:02)
[2020-12-05] MEDS: MORPHINE ER 30 MG TABLET PO SCH (09:02)
[2020-12-05] MEDS: SODIUM HYPOCHLORITE 0.25% IRRIG 473 ML BOTTLE TOP SCH (09:03)
[2020-12-05 11:36] VITALS: BP 118/64
== END 2020-12-05 12:44 | DRG 299 ==
LOC: EDUNIT# → EDBD → N.ED 15:35 → N.EDINP 19:32 → N.TELEN 20:18
PROVIDERS: ADMIT Family Medicine; ATTEND Family Medicine